=== PATIENT | male | born 1930 | race Caucasian/White ===

== ENCOUNTER 2017-05-01 15:53 | Emergency (ER) | payer MEDICARE ==
[2015-10-27 13:24] VITALS: BMI 21.5
[~2017-05-01 15:53] MED LIST: ANDROGEL5 GM; CARAFATE1 G/10 ML PO; COZAAR25 MG; COZAAR25 MG PO; GLUCOTROL 5 MG T5 MG PO; GLUCOTROL ER2.5 MG; HYDROCODONE-APA1 TAB PO; LEVAQUIN500 MG PO; LEVAQUIN750 MG PO; MUCINEX600 MG PO; OMEPRAZOLE40 MG PO; PLAVIX75 MG PO; PRILOSEC10 MG; PROTONIX40 MG PO; TESTOSTERON200 MG/ML IM; TOPROL XL25 MG; TOPROL XL50 MG PO; ZOFRAN ODT4 MG/UDTAB PO; ZOFRAN4 MG PO
[2017-05-01 16:21] LABS: BASOPHILS 0.2 % (0-2); EOSINOPHILS 3.6 % (0-7); HEMOGLOBIN 13.3 g/dL (13.5-17.5); LYMPHOCYTES 23.2 % (15-50); MCH 30.1 pg (26.0-34.0); MCHC 35.9 g/dL (31.0-37.0); MCV 83.7 fL (80.0-100.0); MEAN PLATELET VOLUME 9.5 fL (7.4-10.4); MONOCYTES 7.1 % (2-11); NEUTROPHILS 63.9 % (40-80); RBC 4.42 10x6/uL (4.20-6.10); RDW 13.2 % (11.5-14.5); WBC 9.1 10x3/uL (4.8-10.8)
[2017-05-01 16:35] LABS: PLATELET COUNT 108 10x3/uL (130-400)
[2017-05-01 16:38] LABS: ALBUMIN 3.4 g/dL (3.4-5.0); BILIRUBIN - TOTAL 0.78 mg/dL (0.2-1.3); CALCIUM 8.7 mg/dL (8.5-10.1); CARBON DIOXIDE 25.1 mmol/L (21.0-32.0); CREATININE - SERUM 1.5 mg/dL (0.6-1.3); POTASSIUM - SERUM 4.1 mmol/L (3.5-5.1); PROTEIN - SERUM 6.8 g/dL (6.4-8.2); TROPONIN-I 0.046 ng/mL (0.000-0.060)
[2017-05-01 19:02] LABS: APPEARANCE CLEAR (CLEAR); BILIRUBIN NEGATIVE (NEGATIVE); COLOR YELLOW (YELLOW); GLUCOSE 50 mg/dL (NEGATIVE); KETONE NEGATIVE (NEGATIVE); LEUKOCYTE ESTERASE NEGATIVE (NEGATIVE); NITRITE NEGATIVE (NEGATIVE); PROTEIN NEGATIVE (NEGATIVE); SPECIFIC GRAVITY 1.015 (1.005-1.020); UROBILINOGEN NORMAL (NORMAL)
== END 2017-05-01 19:10 | disposition home or self-care (01) ==
LOC: D.ER 15:53
PROVIDERS: Emergency Medicine
DX: R53.1 Weakness (principal); E11.9 Type 2 diabetes mellitus without complications; Z79.4 Long term (current) use of insulin; I44.0 Atrioventricular block, first degree

== ENCOUNTER 2017-05-03 08:31 | Outpatient (CLI) | payer MEDICARE ==
[~2017-05-03] VITALS: Ht 177.8 cm; Wt 81.8 kg
--- NOTE | ~2017-05-03 | HEMODYNAMI ---
PATIENT:FAITH MONTANO JIMBO MEDICAL RECORD: [id number] : 34 LOCATION:D.CAT ADMISSION DATE: 05/03/17 Generatedon:05/03/201713:54 Patient name: FAITH MONTANO Patient #: [id number] SSN: D OB: 1930 Date of study: 05/03/2017 Page: Of Hemodynamic Procedure Report Patient Data Patient Demographics Procedure consent was obtained First Name: FAITH Gender: Male Last Name: DUSTY : 1930 Middle Initial: JIMBO Age: 86 year(s) Patient #: [id number] Race: Additional ID: [id number] Contact details [address]: [address] [place] [address] State: [place] City: [place] Zip code: [address] Past Medical History Allergies Allergen Reaction Date Comments Reported Other allergy 08/30/2015 Lisinopril Codeine 08/30/2015 Admission Admission Data Admission Date: 05/03/2017 Admission Time: 8:31 Procedure Procedure Types Cath Procedure Diagnostic Procedure [facility] w/Coronaries PCI Procedure Coronary Stent Initial Miscellaneous Procedures Moderate Sedation up to 45 minutes Procedure Description Procedure Date Procedure Date: 05/03/2017 Procedure Start Time: 13:10 Procedure End Time: 13:47 Procedure Staff Name Function Jarod Henry MD Performing Physician Fatmata Jewell RN Nurse Dashawn Dong RT Monitor Herman Thibodeaux RT Scrub Yovani Paul RN Slate Mixer Procedure Data Cath Procedure Fluoroscopy Diagnostic fluoroscopy Total fluoroscopy Time: time: 15.6 min 15.6 min Diagnostic fluoroscopy Total fluoroscopy dose: dose: 1736 mGy 1736 mGy Contrast Material Contrast Material Type Amount (ml) Isovue 300 152 Entry Location Entry Primary Successful Side Size Upsize Upsize Entry Closure Siegel ccessful Closure Location (Fr) 1 (Fr) 2 (Fr) Remarks Device Remarks Radial Right 6 Fr Mechanical artery Short Compression Estimated blood loss: 10 ml Diagnostic catheters Device Type Used For End Catheter Placement Diagnostic Terumo 5Fr Procedure Lester 110cm catheter Procedure Complications No complications Procedure Medications Medication Administration Route Dosage Oxygen NC 2 l/min Heparin Flush Bag added to field 2 bags (1000units/500ml NS) Lidocaine 2% added to field 20 Radial Cocktail added to field 1 syringe (Verapomil 2mg/Nitro 400mcg/Heparin 1500units) Versed I.V. 1 mg Fentanyl I.V. 50 mcg Radial Cocktail I.A. 1 syringe (Verapomil 2mg/Nitro 400mcg/Heparin 1500units) Versed I.V. 0.5 mg Fentanyl I.V. 25 mcg Fentanyl I.V. 25 mcg Heparin Bolus I.V. 5000 units Versed I.V. 0.5 mg Heparin Bolus I.V. 3000 units Hemodynamics Rest Pre Cath Intra NCS Post Cath Vital Signs Time Heart Resp SPO2 etCO2 MS1yyra NIBP (mmHg) Rhythm Pain Sedation Rate (ipm) (%) (mmHg) (mmHg) Status Level (bpm) 12:53:05 73 18 96 0 0 187/85(140) NSR 0 (11) 10(A) , No pain 12:57:30 77 19 99 0 0 180/97(141) NSR 0 (11) 10(A) , No pain 13:01:54 79 15 96 0 0 165/82(131) NSR 0 (11) 10(A) , No pain 13:06:18 83 15 96 0 0 158/79(122) NSR 0 (11) 10(A) , No pain 13:10:38 70 16 98 0 0 145/80(123) NSR 0 (11) 9(A) , No pain 13:14:52 83 16 98 0 0 126/66(100) NSR 0 (11) 9(A) , No pain 13:19:06 82 16 96 0 0 121/64(95) NSR 0 (11) 9(A) , No pain 13:23:14 71 16 94 0 0 136/74(106) NSR 0 (11) 9(A) , No pain 13:27:28 69 16 96 0 0 139/74(113) NSR 0 (11) 9(A) , No pain 13:31:42 70 14 95 0 0 152/76(121) NSR 0 (11) 9(A) , No pain 13:36:04 70 16 96 0 0 143/72(120) NSR 0 (11) 9(A) , No pain 13:40:24 71 15 96 0 0 139/68(107) NSR 0 (11) 9(A) , No pain 13:44:40 70 19 96 0 0 149/79(125) NSR 0 (11) 9(A) , No pain 13:46:53 69 15 94 0 0 148/77(112) NSR 0 (11) 9(A) , No pain Medications Time Medication Route Dose Verified Delivered Reason Note s Effectiveness by by 12:54:17 Oxygen NC 2 l/min Jarod Fatmata Per physician Carl Jewell RN 12:54:29 Heparin Flush added 2 bags Jarod Nessrey used for Bag to Carl Henry MD procedure (1000units/500ml field NS) 12:54:39 Lidocaine 2% added 20ml Jarod Jarod used for to vial Carl Henry MD procedure field 12:54:47 Radial Cocktail added 1 Jarod Jarod used for (Verapomil to syringe Carl Henry MD procedure 2mg/Nitro field 400mcg/Heparin 1500units) 13:07:15 Versed I.V. 1 mg Jarod Fatmata for sedation Carl Jewell RN 13:07:23 Fentanyl I.V. 50 mcg Jarod Fatmata for sedation Carl Jewell RN 13:09:27 Versed I.V. 0.5 mg Jarod Fatmata for sedation Carl Jewell RN 13:09:45 Fentanyl I.V. 25 mcg Jarod Fatmata for sedation Carl Jewell RN 13:11:01 Radial Cocktail I.A. 1 Jarod Jarod for (Verapomil syringe Carl Henry MD vasodilation 2mg/Nitro 400mcg/Heparin 1500units) 13:11:53 Fentanyl I.V. 25 mcg Jarod Fatmata for sedation Carl Jewell RN 13:12:16 Versed I.V. 0.5 mg Jarod Fatmata for sedation Carl Jewell RN 13:14:27 Heparin Bolus I.V. 5000 Jarod Fatmata for dose units Carl Jewell RN anticoagulation verified wt dr henry 13:35:54 Heparin Bolus I.V. 3000 Jarod Fatmata for dose units Carl Jewell RN anticoagulation verified [facility] dr henry Procedure Log Time Note 12:35:50 Yovani Paul RN sent for patient. Start room use. 12:46:59 Time tracking: Regular hours 12:47:03 Plan of Care:Hemodynamics will remain stable., Cardiac rhythm will remain stable., Comfort level will be maintained., Respiratory function will remain adequate., Patient/ family verbilizes understanding of procedure., Procedure tolerated without complication., Recovers from procedure without complications.. 12:47:29 Patient received from Pre/Post Procedure Room to CCL 1 Alert and oriented. Tansferred to table in Supine position. 12:47:36 Warm blankets applied, and deidra hugger turned on for patient comfort. 12:47:37 Correct patient and procedure confirmed by team. 12:47:39 Signed procedure consent form obtained from patient. 12:47:39 ECG and BP/O2 sat monitors applied to patient. 12:51:51 Vital chart was started 12:54:17 Oxygen 2 l/min NC was administered by Fatmata Jewell RN; Per physician; 12:54:29 Heparin Flush Bag (1000units/500ml NS) 2 bags added to field was administered by Jarod Henry MD; used for procedure; 12:54:39 Lidocaine 2% 20ml vial added to field was administered by Jarod Henry MD; used for procedure; 12:54:47 Radial Cocktail (Verapomil 2mg/Nitro 400mcg/Heparin 1500units) 1 syringe added to field was administered by Jarod Henry MD; used for procedure; 13:02:18 Rhythm: sinus rhythm 13:02:23 Full Disclosure recording started 13:04:55 H&P Date Dictated: 04/18/2017 Within 30 days and on chart., H&P Addendum completed by physician on day of procedure. (MUST COMPLETE FOR ALL OUTPATIENTS). 13:04:57 Pre-procedure instructions explained to patient. 13:04:57 Pre-op teaching completed and patient verbalized understanding. 13:04:59 Family in waiting room. 13:05:04 Patient NPO since Midnight. 13:05:05 Is the patient allergic to Iodine/contrast media? No. 13:05:10 Is patient on blood thinner?Yes 13:05:13 ACC The patient was administered the following blood thiners within the last 24 hours: ACCPlavix 13:05:17 Patient diabetic? Yes. 13:05:18 If diabetic: On Metformin? No 13:05:20 Previous problem with sedation/anesthesia? No ? 13:05:24 Snore? Yes 13:05:27 Sleep apnea? No 13:05:33 Deviated septum? No 13:05:33 Opens mouth fully? Yes 13:05:34 Sticks out tongue? Yes 13:05:37 Airway obstruction? No ? 13:05:56 Dentures? Yes IN 13:06:04 Pre procedure: right dorsailis pedis pulse 1+ Palpable, but thready & weak; easily obliterated 13:06:07 Modified Willie's test Ulnar < 7 seconds 13:06:09 Patient pain scale 0/10 ?. 13:06:14 IV patent on arrival in left forearm with 0.9% NaCl at [facility]. 13:06:24 Lab results completed and on chart. 13:06:59 Right Radial & Right Groin area was prepped with chlora-prep and draped in sterile fashion 13:07:00 Alarms reviewed by R. N. 13:07:00 Sharps counted by scrub and verified by R.N. 13:07:04 --------ALL STOP TIME OUT------ 13:07:04 Final Timeout: patient, procedure, and site verified with staff and physician. All members of the team are in agreement. 13:07:07 Right Radial & Right Groin site verified by team. 13:07:10 Physical assessment completed. ASA score P 2 - A patient with mild systemic disease as per Jarod Henry MD. 13:07:14 Sedation plan: IV Moderate Sedation Versed, Fentanyl 13:07:15 Versed 1 mg I.V. was administered by Fatmata Jewell RN; for sedation; 13:07:23 Fentanyl 50 mcg I.V. was administered by Fatmata Jewell RN; for sedation; 13::27 Versed 0.5 mg I.V. was administered by Fatmata Jewell RN; for sedation; 13:09:45 Fentanyl 25 mcg I.V. was administered by Fatmata Jewell RN; for sedation; 13:10:06 Use device set Radial Dx 13:10:08 Tegaderm 4 x 4 opened to sterile field. 13:10:09 Acist Manifold opened to sterile field. 13:10:09 Acist Hand Control opened to sterile field. 13:10:10 Acist Syringe opened to sterile field. 13:10:11 Medline Cath Pack opened to sterile field. 13:10:11 Bag Decanter opened to sterile field. 13:10:12 Terumo 6Fr Slender Glidesheath opened to sterile field. 13:10:12 St Mason 260cm J .035 wire opened to sterile field. 13:10:12 MBrace Wrist Support opened to sterile field. 13:10:16 Procedure started. 13:10:22 Local anesthetic to right radial artery with Lidocaine 2% by Jarod Henry MD.INITIAL ACCESS ONLY 13:10:49 A 6 Fr Short sheath was inserted into the Right Radial artery 13:11:01 Radial Cocktail (Verapomil 2mg/Nitro 400mcg/Heparin 1500units) 1 syringe I.A. was administered by Jarod Henry MD; for vasodilation; 13:11:26 A Diagnostic Terumo 5Fr Lester 110cm catheter was advanced over the wire and used for Procedure. 13:11:41 LV angiography performed. 13:11:42 LV gram done using SANCHEZ 13:11:47 EF : 55 % 13:11:51 Injector settings: Ml/sec: 7, Volume: 15, 13:11:53 Fentanyl 25 mcg I.V. was administered by Fatmata Jewell RN; for sedation; 13:12:16 Versed 0.5 mg I.V. was administered by Fatmata Jewell RN; for sedation; 13:12:20 LCA angiography performed. 13:12:33 Merit BasixCompak Inflation Kit opened to sterile field. 13:13:08 RCA angiography performed. 13:13:09 Butt Whisper J 300cm 0.014 guide wire opened to sterile field. 13:13:11 Catheter exchanged over wire. 13:13:39 Gliphotronic Launcher 6Fr EBU 3.5 guide catheter opened to sterile field. 13:14:08 ACC PCI Site: pLAD has 100% stenosis. 13:14:25 ACC Pre-intervention CHELSY Flow is 0. 13:14:27 Heparin Bolus 5000 units I.V. was administered by Fatmata Jewell RN; for anticoagulation; dose verified wt dr henry 13:14:50 6 Fr EBU 3.5 guide catheter was inserted over the wire 13:16:01 Whisper wire advanced. 13:18:14 Butt Fielder XT J 300cm 0.014 guide wire opened to sterile field. 13:19:21 Whisper unable to cross, exchange for Choice PT XS wire. 13:20:13 [place] Sci Choice PT Extra Support J 300cm .014 gu opened to sterile field. 13:20:55 Choice PT XS unable to cross, exchange for Fielder wire. 13:25:53 Venture 6F catheter opened to sterile field. 13:25:54 Supercross Microcatheter advanced over the wire. 13:26:20 Fielder wire advanced across lesion and down the LAD. 13:26:25 Supercross catheter removed over the wire. 13:30:03 Inflation number: 1 A Euphora 1.5 x 20 Balloon was prepped and advanced across the Mid LAD, then inflated to 21 RAUL for 0:10 (min:sec). 13:30:21 Multiple inflations made at 21 Atms. 13:31:24 Balloon removed over the wire. 13:33:14 [place] 2.5x30 balloon advanced across lesion to exchange Fielder for Choice PT XS. 13:33:34 Inflation number: 2 A [place] Sci [place] 2.5 X 30 balloon was prepped and advanced across the Mid LAD, then inflated to 17 RAUL for 0:10 (min:sec). 13:35:00 Multiple inflations made at 17 Atms. 13:35:54 Heparin Bolus 3000 units I.V. was administered by Fatmata Jewell RN; for anticoagulation; dose verified wtih dr henry 13:36:29 Balloon removed over the wire. 13:36:48 Inflation Number: 3 A Biofreedom 2.25 x 28 stent (No Cost Implant) was prepped and advanced across the Mid LAD. The stent was deployed at 13 RAUL for 0:10 (min:sec). 13:37:46 Stent catheter was removed intact over wire. 13:38:57 Inflation Number: 4 A Biofreedom 2.75 x 28 stent (No Cost Implant) was prepped and advanced across the Mid LAD. The stent was deployed at 13 RAUL for 0:10 (min:sec). 13:39:36 Stent catheter was removed intact over wire. 13:40:47 Inflation Number: 1 A Biofreedom 3.0 x 24 stent (No Cost Implant) was prepped and advanced across the Prox LAD. The stent was deployed at 15 RALU for 0:10 (min:sec). 13:41:36 Stent catheter was removed intact over wire. 13:41:39 Wire removed. 13:41:39 Guide catheter removed. 13:44:26 Procedure ended.(Physican Out) 13:44:42 Terumo TR Band Standard opened to sterile field. 13:44:51 Sheath removed intact; hemostasis achieved with Mechanical Compression to the Right Radial artery. 13:44:59 Fluoroscopy time 15.60 minutes. 13:45:04 Fluoroscopy dose: 1736 mGy 13:45:04 Flurop Dose total: 1736 13:45:11 Contrast amount:Isovue 300 152ml. 13:45:13 Sharps counted by scrub and verified by R.N. 13:45:16 TR band inflated with 12cc of air. 13:45:22 Insertion/operative site no bleeding no hematoma. 13:45:25 Post Procedure Pulses reassessed and unchanged 13:45:27 Post-procedure physical assessment completed. ASA score P 2 - A patient with mild systemic disease as per Jarod Henry MD. 13:45:29 Post procedure rhythm: unchanged. 13:45:32 Estimated blood loss: 10 ml 13:45:36 Post procedure instruction explained to patient.Patient verbalizes understanding. 13:45:37 Patient needs reinforcement of post procedure teaching. 13:45:47 Procedure type changed to Cath procedure, Diagnostic procedure, LHC, LHC w/Coronaries, PCI procedure, Coronary Stent Initial, Miscellaneous Procedures, Moderate Sedation up to 45 minutes 13:46:57 Procedure and supply charges have been captured, reviewed, submitted and are correct. 13:47:01 Procedure Complication : No complications 13:47:09 Vital chart was stopped 13:47:10 See physician's report for complete and final results. 13:47:22 Report given to Pre/Post Procedure Room. 13:47:25 Patient transfered to Pre/Post Procedure Room with Stretcher. 13:47:27 Procedure ended. 13:47:27 Full Disclosure recording stopped 13:54:04 End room use (Document Last) Intervention Summary Intervention Notes Time ActionType Lesion and Equipment Action# Pressure Duration Attributes Used 13:30:03 Inflate Mid LAD Euphora 1 21 00:10 balloon 1.5 x 20 Balloon 13:33:34 Inflate Mid LAD [place] Sci 2 17 00:10 balloon [place] 2.5 X 30 balloon 13:36:48 Place stent Mid LAD Biofreedom 3 13 00:10 2.25 x 28 stent (No Cost Implant) 13:38:57 Place stent Mid LAD Biofreedom 4 13 00:10 2.75 x 28 stent (No Cost Implant) 13:40:47 Place stent Prox LAD Biofreedom 1 15 00:10 3.0 x 24 stent (No Cost Implant) Device Usage Item Name Manufacture Quantity Catalog Number Hospital Part Current Mini mal Lot# / Charge Number Stock Stock Serial# Code Tegaderm 4 3M 1 [id number] 498403 753966 110160 5 x 4 Acist Acist 1 79243 326424 123577 858014 5 Manifold Medical Systems Trellis Earth Products Acist Hand Acist 1 97500 436343 072910 485620 5 Control Medical Systems Trellis Earth Products Acist Acist 1 78856 668915 207575 605288 20 Syringe Medical Systems Inc Medline Cardinal 1 [id number] 367045 56366 592036 5 Cath Pack Health Bag Microtek 1 2002S 225208 44852 523729 5 Overinteractive Media Inc. Terumo 6Fr Terumo 1 [id number] 222096 524343 083712 [address] St Mason 1 768512 847262 629944 775785 30 260cm J .035 wire MBrace Advanced 1 140-0250-00 912842 06250 379459 5 Wrist Vascular Support Dynamics Diagnostic Terumo 1 06-2325 665036 382736 577533 5 Terumo 5Fr Lester 110cm catheter Merit Merit 1 AS7034 090553 922621 047152 15 YR Free Medical Inflation Kit Medtronic Medtronic 1 [id number] 894624 98902 026713 3 Launcher 6Fr EBU 3.5 guide catheter [place] Sci [place] 1 [id number] 093811 043585 587375 5 Choice PT Scientific Extra Support J 300cm .014 gu Butt Butt 1 [id number] 001986 178290 935757 5 Whisper J Vascular 300cm 0.014 guide wire Butt Butt 1 [id number] 864122 446096 262815 5 Fielder XT Vascular J 300cm 0.014 guide wire Euphora 1.5 Medtronic 1 [id number] 823317 463347 720696 5 [id number] x 20 Balloon [place] Sci [place] 1 [id number] 874902 933151 387406 1 [id number] Bevo Media 2.5 X 30 balloon Venture 6F Vascular 1 5821 223626 519479 427839 1 catheter Solutions Biofreedom Biosensors 1 [facility]2-2228 116708 851497 5 [id number] 2.25 x 28 [place] SA stent (No Cost Implant) Biofreedom Biosensors 1 [facility]2-0202 336954 528785 5 [id number] 2.75 x 28 [place] SA stent (No Cost Implant) Biofreedom Biosensors 1 [facility]2-9394 520356 823521 5 [id number] 3.0 x 24 [place] SA stent (No Cost Implant) Terumo TR Terumo 1 [id number] 444803 842648 196495 40 Band Standard Signature Audit [place] Stage Time Signature Unsigned Intra-Procedure 05/03/2017 Herman Thibodeaux 1:54:16 PM RT(R) Signatures Monitor : Dashawn Dong RT Signature : Date : Time : [id number] [place] [address]
[2017-05-03] MEDS ORDERED: TIROSINT50 MCG PO (09:14)
[2017-05-03] MEDS ORDERED: METOPROLOL TART50 MG PO (09:14)
[2017-05-03] MEDS ORDERED: NEURONTIN 300300 MG PO (09:15)
[2017-05-03] MEDS ORDERED: COZAAR25 MG PO (09:15)
[2017-05-03] MEDS ORDERED: NORVASC5 MG PO (09:15)
[2017-05-03] MEDS ORDERED: GLUCOTROL 5 MG T5 MG PO (09:15)
[2017-05-03] MEDS ORDERED: PLAVIX75 MG PO (09:16)
[2017-05-03 09:22] VITALS: BP 158/69; Ht 177.8 cm; Wt 81.8 kg
[2017-05-03 09:30] LABS: BASOPHILS 0.1 % (0-2); EOSINOPHILS 3.8 % (0-7); HEMATOCRIT 39.4 % (42.0-54.0); HEMOGLOBIN 13.6 g/dL (13.5-17.5); IMMATURE GRANULOCYTES 1.6 % (0-5); LYMPHOCYTES 22.4 % (15-50); MCH 29.4 pg (26.0-34.0); MCHC 34.5 g/dL (31.0-37.0); MCV 85.1 fL (80.0-100.0); MEAN PLATELET VOLUME 10.5 fL (7.4-10.4); MONOCYTES 9.6 % (2-11); NEUTROPHILS 62.5 % (40-80); PLATELET COUNT 107 10x3/uL (130-400); RBC 4.63 10x6/uL (4.20-6.10); RDW 13.7 % (11.5-14.5); WBC 7.1 10x3/uL (4.8-10.8)
[2017-05-03 09:42] LABS: CALCIUM 9.1 mg/dL (8.5-10.1); CARBON DIOXIDE 27.1 mmol/L (21.0-32.0); CREATININE - SERUM 1.3 mg/dL (0.6-1.3)
[2017-05-03 09:49] LABS: ANION GAP 8.5 mmol/L (8-16); POTASSIUM - SERUM 4.6 mmol/L (3.5-5.1)
[2017-05-03 10:31] LABS: CKMB 1.5 U/L (0.0-3.6)
[2017-05-03 10:35] LABS: CREATINE KINASE 203 UL (21-232)
--- NOTE | 2017-05-03 14:15 | NUR ---
TR BAND TO RIGHT WRIST INTACT, NO BLEEDING NOTED
--- NOTE | 2017-05-03 14:45 | NUR ---
TR BAND TO RIGHT WRIST CDI, AT SIDE, DENIES CHEST PAIN
--- NOTE | 2017-05-03 15:25 | NUR ---
LAB RESULTS CALLED TO PABLO- NO NEW ORDERS
--- NOTE | 2017-05-03 17:45 | NUR ---
IV D'C WITH CATH TIP INTACT, TR BAND OFF WITH BANDAID APPLIED, BRACE APPLIED. WRITTEN AND VERBAL D'C INSTRUCTIONS GIVEN AND UNDERSTOOD. D'C HOME WITH
--- NOTE | 2017-05-04 08:33 | PRO ---
PATIENT:FAITH MONTANO MEDICAL RECORD: [id number] : 34 LOCATION:DErikaCAT ADMISSION DATE: 05/03/17 PROCEDURE PERFORMED BY: BEN SHAH MD PROCEDURE DATE: 05/03/17 PROCEDURES: 1. PTCA stent LAD. 2. Left heart catheterization. 3. Selective coronary angiography. 4. Left ventriculogram. INDICATION: 1. Angina. 2. Coronary artery disease. PROCEDURE IN DETAIL: After informed consent was obtained and after detailed explanation of risks, benefits, as well as alternative therapies, the patient elected to proceed with angiogram and angioplasty. The right radial area was prepped and draped in a normal sterile fashion. The right radial artery was cannulated via modified Seldinger technique with placement of 6-Nepali sheath. All catheters exchanged through this sheath. FINDINGS: Left ventriculogram was performed in standard 30 degree SANCHEZ view, reveals preserved cardiac ejection fraction at 50%. SELECTIVE CORONARY ANGIOGRAPHY: 1. Left main was with no significant angiographic disease. 2. Left anterior descending has previously placed stents. These were totally occluded with CHELSY 0 flow, the entire area through the proximal and mid left anterior descending. The proximal vessel was approximately a 20 millimeter stenosis, the mid vessel with a 55 millimeter stenosis. The mid vessel is a 2.5 millimeter vessel. The proximal vessel is a 2.75 millimeter vessel. 3. The left circumflex has mild irregularities but no flow-limiting stenosis. 4. The right coronary artery has mild irregularities but no flow-limiting stenosis. PTCA STENT OF THE LAD: The stent used proximally was a 3.0 X 24 millimeter BioFreedom. In the mid vessel a 2.75 X 28 and 2.25 X 28 both BioFreedom stents. The result was 0% residual throughout. No angiographic evidence of dissection or thrombus. Amish of CHELSY 3 flow throughout. OVERALL IMPRESSION: Successful percutaneous transluminal coronary angioplasty stent of the left anterior descending going from 100% initial stenosis to 0% residual stenosis. BEN SHAH MD at 0833 CC: [id number] DICTATION DATE: 05/03/172138 SENIOR STAFF CONSULTANT: JCLARY 05/03/172138 DEP CLI 05/03/17 [place] [address]
== END 2017-05-03 18:00 | disposition home or self-care (01) ==
LOC: D.CATH 08:31
PROVIDERS: Internal Medicine Interventional Cardiology
DX: I25.119 Atherosclerotic heart disease of native coronary artery with unspecified angina pectoris (principal); Z00.6 Encounter for examination for normal comparison and control in clinical research program; Z01.812 Encounter for preprocedural laboratory examination
CPT/HCPCS: 93458; C9600

== ENCOUNTER 2017-06-23 23:23 | Emergency (ER) | payer MEDICARE ==
[2017-05-03 09:22] VITALS: BMI 25.8
[~2017-06-23 23:23] MED LIST changes: +METOPROLOL TART50 MG PO; +NEURONTIN 300300 MG PO; +NORVASC5 MG PO; +TIROSINT50 MCG PO
[2017-06-24 00:33] LABS: BASOPHILS 0.1 % (0-2); EOSINOPHILS 4.4 % (0-7); HEMATOCRIT 37.5 % (42.0-54.0); IMMATURE GRANULOCYTES 1.3 % (0-5); LYMPHOCYTES 23.2 % (15-50); MCH 29.5 pg (26.0-34.0); MCHC 34.7 g/dL (31.0-37.0); MCV 85.2 fL (80.0-100.0); MEAN PLATELET VOLUME 9.8 fL (7.4-10.4); MONOCYTES 7.9 % (2-11); NEUTROPHILS 63.1 % (40-80); PLATELET COUNT 102 10x3/uL (130-400); RDW 13.3 % (11.5-14.5); WBC 6.9 10x3/uL (4.8-10.8)
[2017-06-24 00:55] LABS: APPEARANCE CLEAR (CLEAR); BILIRUBIN NEGATIVE (NEGATIVE); COLOR YELLOW (YELLOW); GLUCOSE NEGATIVE (NEGATIVE); KETONE NEGATIVE (NEGATIVE); LEUKOCYTE ESTERASE NEGATIVE (NEGATIVE); NITRITE NEGATIVE (NEGATIVE); PROTEIN NEGATIVE (NEGATIVE); UROBILINOGEN NORMAL (NORMAL)
[2017-06-24 00:57] LABS: ALBUMIN 3.5 g/dL (3.4-5.0); ANION GAP 11.8 mmol/L (8-16); BILIRUBIN - TOTAL 0.6 mg/dL (0.2-1.3); CALCIUM 9.1 mg/dL (8.5-10.1); CARBON DIOXIDE 25.3 mmol/L (21.0-32.0); CREATININE - SERUM 1.7 mg/dL (0.6-1.3); POTASSIUM - SERUM 4.1 mmol/L (3.5-5.1); PROTEIN - SERUM 6.9 g/dL (6.4-8.2); TROPONIN-I 0.035 ng/mL (0.000-0.060)
== END 2017-06-24 01:20 | disposition home or self-care (01) ==
LOC: D.ER 23:23
PROVIDERS: Nurse Practitioner Family
DX: R51 Headache (principal); R53.1 Weakness; E11.9 Type 2 diabetes mellitus without complications; Z79.4 Long term (current) use of insulin; F17.200 Nicotine dependence, unspecified, uncomplicated; I44.0 Atrioventricular block, first degree

== ENCOUNTER 2017-06-25 10:37 | Inpatient (IN) | payer MEDICARE ==
[~2017-06-25] VITALS: Ht 177.8 cm
[2017-06-25 12:05] LABS: BASOPHILS 0 % (0-2); EOSINOPHILS 0.1 % (0-7); HEMOGLOBIN 13.8 g/dL (13.5-17.5); IMMATURE GRANULOCYTES 0.9 % (0-5); LYMPHOCYTES 15.1 % (15-50); MCH 29.4 pg (26.0-34.0); MCHC 35.4 g/dL (31.0-37.0); MEAN PLATELET VOLUME 9.6 fL (7.4-10.4); MONOCYTES 5.5 % (2-11); NEUTROPHILS 78.4 % (40-80); PLATELET COUNT 104 10x3/uL (130-400); RDW 13.1 % (11.5-14.5); WBC 8.2 10x3/uL (4.8-10.8)
[2017-06-25 12:07] LABS: ALBUMIN 3.9 g/dL (3.4-5.0); ANION GAP 13.9 mmol/L (8-16); BILIRUBIN - TOTAL 1.1 mg/dL (0.2-1.3); CALCIUM 9.4 mg/dL (8.5-10.1); CARBON DIOXIDE 25.7 mmol/L (21.0-32.0); CREATININE - SERUM 1.5 mg/dL (0.6-1.3); POTASSIUM - SERUM 4.6 mmol/L (3.5-5.1); PROTEIN - SERUM 7.3 g/dL (6.4-8.2)
[2017-06-25 13:50] LABS: ERYTHROCYTE SEDIMENTATION RATE 24 mm/hr (0-30)
[2017-06-26 04:00] VITALS: BP 165/80
[2017-06-26 06:49] VITALS: BP 167/81; BMI 24.4
--- NOTE | 2017-06-26 07:35 | NUR ---
PT AOX4 RESP EVEN AND NONLABORED PT DENIES NEEDS AT THIS TIME IV TO RIGHT HAND PATENT AND INTACT AT THIS TIME SRX2 BED AT LOWEST SETTING CALL LIGHT WITHIN REACH WILL CONTINUE TO MONITOR
[2017-06-26 08:21] VITALS: BP 190/90
[2017-06-26 12:00] VITALS: BP 195/80
--- NOTE | 2017-06-26 14:50 | NUR ---
Patient Name: FAITH MONTANO Admission Status: ER Accout number: [id number] Admission Date: 06-25-2017 : 1930 Admission Diagnosis: Attending: URBAN PAL Current LOS: 1 Anticipated DC Date: 06-26-2017 Planned Disposition: Home with Home Health Primary Insurance: [employer] CHOICE PPO MCR ADVANT Discharge Planning Comments: CM MET WITH PATIENTS (DOROTEO) REGARDING D/C NEEDS AND PLANS. STATED SHE WILL DRIVE PATIENT HOME AT DISCHARGE. PATIENT HAS ONE STEP TO ENTER HOME AND NO STAIRS INSIDE. PATIENT WAS INDEPENDENT BEFORE ADMIT AND HAS A WALKER, AND GLUCOMETER AT HOME (CHECKS DAILY). PATIENTS PCP IS DR. HERRERA AND PHARMACY IS [facility]. STATED PATIENT WILL NEED HOME HEALTH OR REHAB AT DISCHARGE. CM WILL CONTINUE TO FOLLOW PATIENT WITH D/C NEEDS AND PLANS. PCP DR. [facility] [phone] DROOTEO () [phone] Interline Clerk: Niki Perez Is the patient Alert and Oriented? No 0 * How many steps to enter\exit or inside your home? 1 0 * PCP DR. HERRERA 0 * Pharmacy [facility] 0 * Preadmission Environment Home with Family 0 * ADLs Independent 0 * Equipment Glucometer Walker 0 * List name and contact numbers for known caregivers / representatives who currently or will assist patient after discharge: DOROTEO () H [phone] [facility] [phone] 0 * Community resources currently utilized None 0 * Additional services required to return to the preadmission environment? Yes 0 * Can the patient safely return to the preadmission environment? Yes 0 * Has this patient been hospitalized within the prior 30 days at any hospital? No 0 Grand Total: 0
[2017-06-26 15:39] VITALS: Ht 177.8 cm
--- NOTE | 2017-06-26 16:00 | NUR ---
OT NOTE: PT COMPLETED BED MOB USING GRAB BARS FOR SIDE ROLLING TO DECREASE RISK OF SKIN BREAKDOWN. PT COMPLETED BUE AROM EXS FOR INCREASE GROSS MOTOR COORDINATION WITH FX ACTIVITIES. PT COMPLETED SIMPLE GROOMING WITH SET UP. THANK YOU, LAZ LANGFORD/Gonzalez
[2017-06-26 16:31] VITALS: BP 178/87
--- NOTE | 2017-06-26 19:30 | NUR ---
RECIEVED SHIFT REPORT. PT IS LYING IN BED. ALERT AND ORIENTED AND ABLE TO VERBALIZE NEEDS. IV IS PATENT AND FLUIDS ARE RUNNING PER ORDER. PT IS AMBULATORY WITH ASSISTANCE BUT STATES HE IS WEAK RIGHT NOW. PT STATES PAIN IS 7/10. NO NEEDS ARE VERBALIZED AT THIS TIME. WILL CONTINUE TO MONITOR. VISITOR IS AT THE BEDSIDE. SIDE RAILS ARE UP X 2. BED IS IN LOWEST POSITION. BED ALARM IS ON FOR SAFETY. CALL LIGHT IS WITHIN REACH.
[2017-06-26 20:00] VITALS: BP 199/93
--- NOTE | 2017-06-26 20:48 | NUR ---
SHIFT ASSESSMENT COMPLETED. PT RECIEVED 4 UNITS INSULIN PER SLIDING SCALE FOR SXGE=479. NO NEEDS ARE VOICED. WILL MONITOR. VISITOR AT BEDSIDE. SIDE RAILS X 2. BED LOW. BED ALARM ON. CALL LIGHT IN REACH.
[2017-06-27] VITALS: BP 189/89
[2017-06-27 04:00] VITALS: BP 184/96
[2017-06-27 04:55] LABS: BASOPHILS 0.1 % (0-2); EOSINOPHILS 0.1 % (0-7); HEMATOCRIT 38.8 % (42.0-54.0); HEMOGLOBIN 14.4 g/dL (13.5-17.5); IMMATURE GRANULOCYTES 0.6 % (0-5); LYMPHOCYTES 9.9 % (15-50); MCH 30.3 pg (26.0-34.0); MCHC 37.1 g/dL (31.0-37.0); MCV 81.7 fL (80.0-100.0); MEAN PLATELET VOLUME 9.8 fL (7.4-10.4); MONOCYTES 7.8 % (2-11); NEUTROPHILS 81.5 % (40-80); PLATELET COUNT 126 10x3/uL (130-400); RBC 4.75 10x6/uL (4.20-6.10); WBC 13.9 10x3/uL (4.8-10.8)
[2017-06-27 05:25] LABS: ALBUMIN 3.4 g/dL (3.4-5.0); BILIRUBIN - TOTAL 1.25 mg/dL (0.2-1.3); CALCIUM 8.6 mg/dL (8.5-10.1); CARBON DIOXIDE 25.1 mmol/L (21.0-32.0); CHOL - HDL RATIO 5.2 ratio (2.3-4.9); CREATININE - SERUM 1.3 mg/dL (0.6-1.3); LDL-HDL RATIO 3.2 ratio (1.5-3.5); POTASSIUM - SERUM 4.1 mmol/L (3.5-5.1); PROTEIN - SERUM 6.5 g/dL (6.4-8.2)
--- NOTE | 2017-06-27 07:50 | NUR ---
PT AOX4 RESP EVEN AND NONLABORED PT C/O H/A AT THIS TIME PT GIVEN PO TYLENOL 650MG AT THIS TIME IV TO RIGHT HAND PATENT AND INTACT AT THIS TIME SRX2 BED AT LOWEST SETTING CALL LIGHT WITHIN REACH WILL CONTINUE TO MONITOR
[2017-06-27 08:06] VITALS: BP 170/86
[2017-06-27 11:58] VITALS: BP 187/87
--- NOTE | 2017-06-27 14:43 | NUR ---
OT NOTE: PT FEELING BETTER TODAY; LESS NAUSEATED. PERFORMED AROM EXS WHILE SUPINE; ATTEMPTED SITTING UP , HOWEVER, PT REMAINS VERY DIZZY AND WAS UNABLE TO TOLERATE TODAY. REPORTED THAT THEY WERE WORRIED ABOUT BP DROPPING WHILE SITTING UP. BED MOB WITH MIN ASSIST.
--- NOTE | 2017-06-27 15:01 | NUR ---
AND NOTIFIED OF B/P OF BOTH STATE WILL DO NOTHING FOR IT AT THIS TIME TO MONITOR PT.
[2017-06-27 15:03] VITALS: BP 162/80
--- NOTE | 2017-06-27 15:47 | NUR ---
OT NOTE: PT COMPLETED ORAL HYGIENE TASK WITH MOD A. PT COMPLETED BUE FM COORDINATION FOR INCREASED I WITH ADLS. MELVA FORD COTA/Gonzalez
[2017-06-27 20:00] VITALS: BP 160/79
[2017-06-28] VITALS: BP 155/80
[2017-06-28 04:00] VITALS: BP 179/82
[2017-06-28 05:42] LABS: BASOPHILS 0.1 % (0-2); EOSINOPHILS 0.6 % (0-7); HEMATOCRIT 38.9 % (42.0-54.0); HEMOGLOBIN 14.2 g/dL (13.5-17.5); IMMATURE GRANULOCYTES 0.7 % (0-5); MCH 29.8 pg (26.0-34.0); MCHC 36.5 g/dL (31.0-37.0); MCV 81.6 fL (80.0-100.0); MEAN PLATELET VOLUME 9.3 fL (7.4-10.4); MONOCYTES 7.7 % (2-11); NEUTROPHILS 75.9 % (40-80); PLATELET COUNT 114 10x3/uL (130-400); RBC 4.77 10x6/uL (4.20-6.10); WBC 10.9 10x3/uL (4.8-10.8)
[2017-06-28 05:57] LABS: ALBUMIN 3.4 g/dL (3.4-5.0); ANION GAP 13.4 mmol/L (8-16); BILIRUBIN - TOTAL 1.4 mg/dL (0.2-1.3); CALCIUM 8.7 mg/dL (8.5-10.1); CARBON DIOXIDE 23.6 mmol/L (21.0-32.0); CREATININE - SERUM 1.3 mg/dL (0.6-1.3); PROTEIN - SERUM 6.7 g/dL (6.4-8.2)
--- NOTE | 2017-06-28 08:00 | NUR ---
PT RESTING QUIETLY. AROUSES TO VOICE. COMPLAINS OF HEADACHE. NIGHT NURSE GAVE TYLENOL FOR HEADACHE. HAS ACTIVE BS X 4. HAND CONTINUITY WRITER STRONG EQUAL YOLY. LEG STRENGTH STRONG AND EQUAL YOLY. ON ROOM AIR. LUNG SOUNDS CLEAR THROUGH OUT. ON TELEMETRY WITH HR OF 88 SYNUS RHYTHM. R-FOREARM PERIPHERAL IV INFUSING 1/2 NS AT 100ML/HR. IS IN THE ROOM. DENIES OTHER NEEDS AT THIS TIME.
[2017-06-28 08:05] VITALS: BP 176/86
--- NOTE | 2017-06-28 11:09 | NUR ---
PT RESTING COMFORTABLY. NORCO HELPED WITH HEADACHE. DID NOT RATE PAIN AT THIS TIME. WILL CONTINUE TO MONITOR.
--- NOTE | 2017-06-28 11:25 | NUR ---
PT WANTED TO SIT ON SIDE OF BED. NOT STRONG ENOUGH TO SIT UP. EXPLAINED TO PT THAT HE NEEDED TO STAY IN BED TO PREVENT FALL. PT PULLED UP IN BED AND REPOSITIONED. BED IN LOW POSITON. PRAKASH BED ALARM ON. NO OTHER NEEDS AT THIS TIME.
--- NOTE | 2017-06-28 11:44 | NUR ---
BLOOD SUGAR 218. 4 UNITS OF HUMULIN R GIVEN PER SLIDING SCALE.
[2017-06-28 12:28] VITALS: BP 163/85
--- NOTE | 2017-06-28 13:52 | EC ---
PATIENT:FAITH MONTANON DATE OF SERVICE: 06/25/17 SEX: M MEDICAL RECORD: [id number] DATE OF : 34 LOCATION:[facility] AGE OF PATIENT: 87 ADMISSION DATE: 06/25/17 REFERRING PHYSICIAN: INTERPRETING PHYSICIAN: BEN HENRY MD ECHOCARDIOGRAM REPORT ECHO CHARGES 4 ECHO COMPLETE CLINICAL DIAGNOSIS: CVA ECHOCARDIOGRAPHIC MEASUREMENTS (adult normal given) AC root (d.<3.7cm) 3.5 cm LV Septum d (<1.2 cm> 1.5 cm Valve Excursion 1.4 cm LV Septum (systole) 1.9 cm Left Atria (s.<4.0cm> 2.7 cm LVPW d(<1.2cm) 1.5 cm RV (d.<2.3cm) 2.4 cm LVPW (sytole) 2.3 cm LV diastole(<5.6CM) 4.6 cm MV E-F(>70mm/sec) cm LV systole 2.5 cm LVOT Diameter 2.0 cm MV exc.(>10mm) cm Est.ejection fraction (50-75%) % Pericardial Effusion N DOPPLER: LVIT cm/sec A 106 cm/sec E 84.0 cm/sec LA cm/sec RVSP 27.0 mmHg LVOT 113 cm/sec AOP1/2T m/s Asc. Ao 131 cm/sec RVOT 95.0 cm/sec RA cm/sec PA 148 cm/sec AV Gradient Peak 6.9 mmHg AV Mean 3.2 mmHg AV Area 3.4 cm MV Gradient Peak 5.4 mmHg MV Mean 2.4 mmHg MV Area cm COMMENTS: Accounts Clerk: 1 ABDON LERMAOE Interior Design Principal: 1 Dr. Henry TAPE# PACS DATE OF SERVICE: 06/27/2017 Echocardiogram FINDINGS: 1. Left ventricular chamber size is within normal limits. Left ventricular systolic function is normal. Overall ejection fraction estimated at 55%. 2. Left atrium, right atrium, and right ventricle chamber sizes are within normal limits. 3. Valvular structures have normal structure and motion. ECHOCARDIOGRAM REPORT [id number] FAITH MONTANO JIMBO 4. Doppler interrogation reveals mild aortic insufficiency, mild tricuspid regurgitation, no other valvular insufficiency or stenosis and pulmonary systolic pressure is normal estimated at 27 mmHg. 5. No evidence of pericardial effusion or left ventricular thrombus. TRANSINT:[id number] Voice Confirmation ID: [id number] DOCUMENT ID: [id number] BEN HENRY MD at 1352 CC: [id number] DICTATION DATE: 06/27/17 1250 ALTERNATIVE FINANCING SPECIALIST: 06/27/17 1838 ADM IN [facility] [address] [place] [address]
--- NOTE | 2017-06-28 14:20 | NUR ---
PT RESTING COMFORTABLY. FAMILY REPORTS NO NEEDS AT THIS TIME.
--- NOTE | 2017-06-28 14:38 | NUR ---
NUTRITION F/U ADA DIET, PO INTAKE IMPROVING WITH FAMILY ASSIST. WILL CONTINUE TO PROVIDE DIET, MONITOR INTAKE. RD FOLLOWING
[2017-06-28 16:00] VITALS: BP 172/77
--- NOTE | 2017-06-28 16:23 | NUR ---
OT NOTE: PT COMPLETED ORAL HYGIENE WITH MIN A. PT COMPLETED BUE FM SKILLS FOR INCREASED I WITH ADLS. THANK YOU, LAZ LANGFORD/Gonzalez
--- NOTE | 2017-06-28 16:52 | NUR ---
CM REASSESSMENT NOTE: PATIENTS SIGNED THE [facility]M FOR [facility] 1ST CHOICE AND [facility] 2ND CHOICE FOR SKILLED REHAB AT DISCHARGE.
--- NOTE | 2017-06-28 19:33 | NUR ---
PATIENT RESTING IN BED WITH EYES CLOSED AND NO VISIBLE SIGNS OF DISTRESS. FAMILY AT BEDSIDE. BED IN LOWEST POSITION AND CALL LIGHT WITHIN REACH. ENCOURAGED THE FAMILY TO CALL IF THEY OR THE PATIENT HAVE NEEDS.
[2017-06-28 20:00] VITALS: BP 157/63
[2017-06-29] VITALS: BP 180/81
[2017-06-29 04:09] VITALS: BP 162/73
[2017-06-29 06:12] LABS: BASOPHILS 0.1 % (0-2); EOSINOPHILS 0.1 % (0-7); HEMATOCRIT 38.9 % (42.0-54.0); HEMOGLOBIN 14.2 g/dL (13.5-17.5); IMMATURE GRANULOCYTES 0.6 % (0-5); LYMPHOCYTES 10.2 % (15-50); MCH 29.5 pg (26.0-34.0); MCHC 36.5 g/dL (31.0-37.0); MCV 80.9 fL (80.0-100.0); MEAN PLATELET VOLUME 9.7 fL (7.4-10.4); MONOCYTES 6.1 % (2-11); NEUTROPHILS 82.9 % (40-80); PLATELET COUNT 126 10x3/uL (130-400); RBC 4.81 10x6/uL (4.20-6.10); RDW 13.1 % (11.5-14.5)
[2017-06-29 06:19] LABS: WBC 15.8 10x3/uL (4.8-10.8)
[2017-06-29 06:29] LABS: ALBUMIN 3.2 g/dL (3.4-5.0); ANION GAP 16.6 mmol/L (8-16); BILIRUBIN - TOTAL 1.4 mg/dL (0.2-1.3); CALCIUM 8.6 mg/dL (8.5-10.1); CARBON DIOXIDE 21.4 mmol/L (21.0-32.0); CREATININE - SERUM 1.2 mg/dL (0.6-1.3); PROTEIN - SERUM 6.7 g/dL (6.4-8.2)
--- NOTE | 2017-06-29 07:30 | NUR ---
REPORT RECEIVED FROM PHARMACOEPIDEMIOLOGIST NURSE. WALKING ROUNDS PREFORMED. ASSESSMENT AT PER FLOW SHEET. PT SITTING UP IN BED WITH EYES CLOSED, AUDIBLE SNORING. AT BEDSIDE. REPORTS NO NEEDS. BED ALARM PLACED AND ARMED. SCD'S ON. CALL LIGHT AT SIDE. IV INFUSING TO RIGHT AC.
[2017-06-29 08:10] VITALS: BP 185/76
--- NOTE | 2017-06-29 09:00 | NUR ---
PT NOTED TO HAVE REDENSS TO BUTTOCKS AND MANY INCT EPISODES OF URINE PT WITH FIRM BLADDER AFTER INCT EPISODE NOTED CESPEDES CATHETER ORDER OBTAINED AND CESPEDES INSERTED WITH STERILE TECHNIQUE ALL PARTS OF TRAY UTILIZED PER PROTOCOL. OBTAINED IMMEDIATE RETURN OF YELLOW URINE 500 ML. TOLERATED WELL FAMILY AT SIDE.
--- NOTE | 2017-06-29 10:10 | NUR ---
PT SITTING UP IN BED ASLEEP, NO VISABLE SIGNS OF PAIN OR DISCOMFORT AT THIS TIME. BED IN LOW POSITION AND CALL LIGHT WITHIN REACH. WILL CONTINUE TO MONITOR.
[2017-06-29 12:40] VITALS: BP 116/77
[2017-06-29 15:00] LABS: APPEARANCE SLT CLOUDY (CLEAR); COLOR YELLOW (YELLOW)
[2017-06-29 15:01] LABS: BILIRUBIN NEGATIVE (NEGATIVE); GLUCOSE 250 mg/dL (NEGATIVE); KETONE SMALL mg/dL (NEGATIVE); LEUKOCYTE ESTERASE NEGATIVE (NEGATIVE); NITRITE NEGATIVE (NEGATIVE); PROTEIN TRACE mg/dL (NEGATIVE); UROBILINOGEN NORMAL (NORMAL)
[2017-06-29 15:05] LABS: BACTERIA FEW /hpf (NONE SEEN)
[2017-06-29 15:57] VITALS: BP 166/76
--- NOTE | 2017-06-29 18:31 | NUR ---
PT HAS BEEN LETHARGIC TODAY UNABLE TO SWALLOW TODAY HAD VISIT FROM SPEECH TODAY AND PER RECCOMENDATIONS WAS MADE NPO PT UNABLE TO INITIATE SWALLOW. FAMILY WAS AT BEDSIDE WITH SPEECH VISIT AND AWARE OF NPO STATUS QUESTIONS ANSWERED PER THIS NURSE WITHIN SCOPE
--- NOTE | 2017-06-29 19:45 | NUR ---
PATIENT IS RESTING IN BED WITH NO VISIBLE SIGNS OF DISTRESS. PATIENT IS LETHARGIC AND WILL ONLY ANSWER YES OR NO QUESTIONS. PATIENT'S BED IN LOWEST POSITION, CALL LIGHT WITHIN REACH, AND BED ALARM IS ON. ENCOURAGED THE PATIENT TO CALL IF HE HAS NEEDS.
[2017-06-29 20:00] VITALS: BP 178/84
[2017-06-30] VITALS: BP 177/82
[2017-06-30 04:00] VITALS: BP 170/91
[2017-06-30 06:43] LABS: BASOPHILS 0.1 % (0-2); EOSINOPHILS 0.7 % (0-7); HEMATOCRIT 41.1 % (42.0-54.0); HEMOGLOBIN 14.8 g/dL (13.5-17.5); IMMATURE GRANULOCYTES 1.2 % (0-5); LYMPHOCYTES 13.4 % (15-50); MCH 29.5 pg (26.0-34.0); MEAN PLATELET VOLUME 9.8 fL (7.4-10.4); MONOCYTES 7.6 % (2-11); PLATELET COUNT 140 10x3/uL (130-400); RBC 5.01 10x6/uL (4.20-6.10); RDW 13.1 % (11.5-14.5); WBC 14.3 10x3/uL (4.8-10.8)
--- NOTE | 2017-06-30 07:00 | NUR ---
PT REC'D FROM TONI VERDE. RESTING IN BED ON L SIDE WITH EYES CLOSED. RESP EVEN AND UNLABORED. NO SIGNS OF DISTRESS. BED LOW, CALL LIGHT IN REACH, DENIES NEEDS. CPOC.
[2017-06-30 07:03] LABS: ALBUMIN 2.9 g/dL (3.4-5.0); ANION GAP 14.1 mmol/L (8-16); BILIRUBIN - TOTAL 1.19 mg/dL (0.2-1.3); CALCIUM 8.7 mg/dL (8.5-10.1); CARBON DIOXIDE 25.1 mmol/L (21.0-32.0); CREATININE - SERUM 1.3 mg/dL (0.6-1.3); POTASSIUM - SERUM 4.2 mmol/L (3.5-5.1); PROTEIN - SERUM 6.9 g/dL (6.4-8.2)
[2017-06-30 08:20] VITALS: BP 142/82
--- NOTE | 2017-06-30 09:05 | NUR ---
MORNING MEDS PASSED AT THIS TIME. PT WAS UNABLE TO SWALLOW PILLS SO I PROVIDED ORAL CARE AND DISPOSED OF THEM DUE TO THE FACT THAT I WAS WORRIED THE PT MIGHT ASPIRATE. FAMILY AT BEDSIDE. UNABLE TO FORM WORDS. HAND HR REPRESENTATIVE WEAK BILATERALLY. FOOT PUMPS WEAK BILATERALLY WELL. REGULAR HEART RATE AND RHYTHM. BILAT CRACKLES NOTED TO UPPER LOBES OF LUNGS, AND BILAT LOWER LOBES DIMINISHED. BOWEL SOUNDS HYPOACTIVE X4 QUADS. SCD'S ON. CESPEDES CATHETER DRAINING CLEAR YELLOW URINE TO GRAVITY. PT ATTEMPTING TO CLEAR SECRETIONS, BUT IS UNSUCCESSFUL. REPOSITIONED UP IN BED SITTING IN HIGH FOWLERS. PT NOW ABLE TO GET SECRETIONS TO THE BACK OF HIS THROAT AND SWALLOW WITH SOME DIFFICULTY. BED LOW, CALL LIGHT IN REACH, DENIES NEEDS. CPOC.
--- NOTE | 2017-06-30 09:15 | NUR ---
PATIENT ALERT IN HIGH HDZ POSITION WITH FAMILY AT BEDSIDE. SIDE RAILS UP X2. BED IN LOW POSITION. CALL LIGHT IN REACH.
--- NOTE | 2017-06-30 12:35 | NUR ---
PRN TYLENOL ADMINISTERED PER REPORTS FROM ANDRIY GAMING, OF AXILARY TEMP OF 101. TYLENOL CRUSHED AND DISSOLVED IN PRUNE JUICE AND ADMINISTERED 1ML AT A TIME. PT TOLERATED EXTREMELY WELL WITH NO EPISODE OF COUGHING OR CHOKING. FAMILY AT BEDSIDE. BED LOW, CALL LIGHT IN REACH, CPOC.
[2017-06-30 12:43] VITALS: BP 168/87
[2017-06-30 15:44] VITALS: BP 186/83
[2017-06-30 20:00] VITALS: BP 139/86
--- NOTE | 2017-06-30 20:05 | NUR ---
PATIENT RESTING IN BED WITH EYES CLOSED AND NO VISIBLE SIGNS OF DISTRESS. AT BEDSIDE. BED IN LOWEST POSITION, CALL LIGHT WITHIN REACH, AND BED ALARM ON. ENCOURAGED THE PATIENT'S TO CALL IF THEY HAVE NEEDS.
[2017-07-01] VITALS (7 sets, daily range): BP systolic 135–195; BP diastolic 65–90
[2017-07-01 05:38] LABS: BASOPHILS 0 % (0-2); EOSINOPHILS 0 % (0-7); HEMATOCRIT 38.6 % (42.0-54.0); IMMATURE GRANULOCYTES 1.5 % (0-5); LYMPHOCYTES 6.6 % (15-50); MCH 29.4 pg (26.0-34.0); MCHC 36.3 g/dL (31.0-37.0); MCV 81.1 fL (80.0-100.0); MEAN PLATELET VOLUME 9.9 fL (7.4-10.4); MONOCYTES 5.9 % (2-11); PLATELET COUNT 158 10x3/uL (130-400); RBC 4.76 10x6/uL (4.20-6.10)
[2017-07-01 06:05] LABS: ALBUMIN 2.6 g/dL (3.4-5.0); ANION GAP 14.8 mmol/L (8-16); BILIRUBIN - TOTAL 0.71 mg/dL (0.2-1.3); CALCIUM 8.7 mg/dL (8.5-10.1); CARBON DIOXIDE 22.4 mmol/L (21.0-32.0); CREATININE - SERUM 1.3 mg/dL (0.6-1.3); POTASSIUM - SERUM 4.2 mmol/L (3.5-5.1); PROTEIN - SERUM 6.7 g/dL (6.4-8.2)
--- NOTE | 2017-07-01 07:00 | NUR ---
REPORT RECIEVED ASSUMED CARE. PATIENT IN BED WITH IV INTACT. NO COMPLAINTS AT THIS TIME. CALL LIGHT WITHIN REACH.
--- NOTE | 2017-07-01 08:00 | NUR ---
ASSESSMENT COMPLETE AT THIS TIME. PATIENT IN BED WITH IV INTACT. NO COMPLAINTS. IV INTACT. CALL LIGHT WITHIN REACH.
--- NOTE | 2017-07-01 10:45 | NUR ---
PATIENT IN BED WITH EYES CLOSED RESTING QUIETLY. NO COMPLAINTS OR SIGNS OF DISTRESS. FAMILY AT BEDSIDE. CALL LIGHT WITHIN REACH.
--- NOTE | 2017-07-01 12:45 | NUR ---
PATIENT IN BED WITH IV INTACT. NO COMPLAINTS AT THIS TIME. CALL LIGHT WITHIN REACH.
--- NOTE | 2017-07-01 14:11 | NUR ---
DARYLHIN IVPB PER ORDER. IN ROOM. CALL LIGHT IN REACH.
--- NOTE | 2017-07-01 18:50 | NUR ---
PATIENT IN BED RESTING QUIETLY AT THIS TIME. IV INTACT. FAMILY AT BEDSIDE. CALL LIGHT WITHIN REACH.
--- NOTE | 2017-07-01 19:30 | NUR ---
PATIENT RESTING WITH EYES CLOSED AND NO VISIBLE SIGNS OF DISTRESS WITH AT BEDSIDE. BED IN LOWEST POSITION, CALL LIGHT WITHIN REACH, AND BED ALARM ON. ENCOURAGED THE PATIENT'S TO CALL IF THEY HAVE NEEDS.
[2017-07-02] VITALS: BP 173/86
[2017-07-02 04:00] VITALS: BP 166/80
[2017-07-02 04:39] LABS: BASOPHILS 0.1 % (0-2); EOSINOPHILS 0.1 % (0-7); HEMATOCRIT 39.6 % (42.0-54.0); HEMOGLOBIN 13.9 g/dL (13.5-17.5); IMMATURE GRANULOCYTES 1.7 % (0-5); LYMPHOCYTES 9.1 % (15-50); MCH 29.6 pg (26.0-34.0); MCHC 35.1 g/dL (31.0-37.0); MEAN PLATELET VOLUME 10.3 fL (7.4-10.4); MONOCYTES 6.2 % (2-11); NEUTROPHILS 82.8 % (40-80); PLATELET COUNT 179 10x3/uL (130-400); RBC 4.69 10x6/uL (4.20-6.10); RDW 13.4 % (11.5-14.5); WBC 11.9 10x3/uL (4.8-10.8)
[2017-07-02 04:40] LABS: MCV 84.4 fL (80.0-100.0)
[2017-07-02 05:02] LABS: ALBUMIN 2.7 g/dL (3.4-5.0); ANION GAP 18.7 mmol/L (8-16); BILIRUBIN - TOTAL 0.47 mg/dL (0.2-1.3); CALCIUM 8.9 mg/dL (8.5-10.1); POTASSIUM - SERUM 4.7 mmol/L (3.5-5.1); PROTEIN - SERUM 6.2 g/dL (6.4-8.2)
--- NOTE | 2017-07-02 07:51 | NUR ---
PATIENT IN BED WITH EYES CLOSED RESTING QUIETLY AT THIS TIME. IV INTACT. FAMILY AT BEDSIDE. CALL LIGHT WITHIN REACH.
[2017-07-02 08:18] VITALS: BP 196/79
--- NOTE | 2017-07-02 09:30 | NUR ---
PATIENT IN BED WITH NO COMPLAINTS. EYES CLOSED AT THIS TIME. IV INTACT. CALL LIGHT WITHIN REACH. FAMILY AT BEDSIDE.
--- NOTE | 2017-07-02 12:15 | NUR ---
PATIENT TOLERATED REGULAR DIET. RECIEVED BP MEDS FOR BP 185/95. IV INTACT. NOC OMPLAINTS. CALL LIGHT WITHIN REACH.
[2017-07-02 12:44] VITALS: BP 185/95
--- NOTE | 2017-07-02 14:30 | NUR ---
PATIENT IN BED WITH IV INTACT. NO COMPLAINTS. FAMILY AT BEDSIDE. CALL LIGHT WITHIN REACH.
--- NOTE | 2017-07-02 14:44 | NUR ---
NUTRITION F/U CHART REVIEWED, PT CURRENTLY SLEEPING WITH SPOUSE AT BEDSIDE. DIET RESUMED WITH 25% INTAKE LUNCH. CONTINUES PROCALAMINE AT 50 CC/HR. RD FOLLOWING
--- NOTE | 2017-07-02 16:10 | NUR ---
PATIENT IN BED WITH IV INTACT. NO COMPLAINTS OR SIGNS OF DISTRESS. FAMILY AT BEDSIDE. CALL LIGHT WITHIN REACH.
[2017-07-02 16:28] VITALS: BP 188/98
--- NOTE | 2017-07-02 17:01 | NUR ---
OT NOTE: PT COMPLETED BED MOB WITH SBA. PT COMPLETED ORAL HYGIENE WITH SET UP. PT COMPLETED BUE AAROM EXS FOR INCREASED I WITH ADLS. PT COMPLETED BUE POSITIONING TO DECREASE EDEMA. THANK YOU, LAZ LANGFORD/Gonzalez
--- NOTE | 2017-07-02 18:45 | NUR ---
PATIENT IN BED WITH IV INTACT. NO COMPLAINTS OR SIGNS OF DISTRESS. FAMILY AT BEDSIDE. CALL LIGHTW ITHKARI FUNEZ.
[2017-07-02 20:00] VITALS: BP 152/70
--- NOTE | 2017-07-03 02:00 | NUR ---
ASSISTED AIRPLANE DISPATCH CLERK ADRIANO IN TURNING PT ONTO HIS SIDE, NOTICED PT IV SITE IN RT AC BANDAGE WAS WET, OBTAINED FLUSH AND TRIED FLUCHING LINE. PT IV IS NO GOOD, SPENT 30 MIN TRYING TO FIND NEW IV SITE FOR PT. UNABLE TO LOCATE GOOD VEIN ASKED TONI BERNARDO TO ASSIST, PT UNDERSTOD, TONI BERNARDO SRCK PT ONCE AND UNABLE TO LOCATE VEIN WELL, CALLED ICU AND ASKED FOR ASSISTANCE WILL CONTINUE TO MONITOR PATIENT AND FLOOLW CARE PLAN
--- NOTE | 2017-07-03 02:30 | NUR ---
PATIENT RESTING IN BED WITH EYES CLOSED AND LATRELL BAXTER AT BEDSIDE. BED IN LOWEST POSITION AND CALL LIGHT WITHIN REACH. NO VISIBLE SIGNS OF DISTRESS
--- NOTE | 2017-07-03 03:15 | NUR ---
MANASA FROM ICU CAME DOWN TO STICK PT AND WAS UNSUCCESSFUL TWICE, SHE WENT AND CALLED EMM[facility] WHOM ATTEMPTED AND WAS UNSUCCESSFUL WELL, PAGED KRISTAL AND PENDING CALL BACK
[2017-07-03 04:00] VITALS: BP 148/72
--- NOTE | 2017-07-03 04:23 | NUR ---
KENYETTA JOHNS AND RECIEVED CALL BACK. ADVISED TO PUT ORDER IN FOR CARDIO VASCULAR NURSE TO [facility], ORDERD PLACED
[2017-07-03 05:53] LABS: BASOPHILS 0 % (0-2); EOSINOPHILS 0 % (0-7); HEMATOCRIT 38.4 % (42.0-54.0); HEMOGLOBIN 13.4 g/dL (13.5-17.5); IMMATURE GRANULOCYTES 1.4 % (0-5); LYMPHOCYTES 9.2 % (15-50); MCH 29.4 pg (26.0-34.0); MCHC 34.9 g/dL (31.0-37.0); MCV 84.2 fL (80.0-100.0); MEAN PLATELET VOLUME 10.1 fL (7.4-10.4); MONOCYTES 5.1 % (2-11); NEUTROPHILS 84.3 % (40-80); PLATELET COUNT 175 10x3/uL (130-400); RBC 4.56 10x6/uL (4.20-6.10); RDW 13.3 % (11.5-14.5); WBC 12.6 10x3/uL (4.8-10.8)
[2017-07-03 06:29] LABS: ALBUMIN 2.4 g/dL (3.4-5.0); ANION GAP 18.6 mmol/L (8-16); BILIRUBIN - TOTAL 0.38 mg/dL (0.2-1.3); CALCIUM 8.7 mg/dL (8.5-10.1); CARBON DIOXIDE 20.8 mmol/L (21.0-32.0); POTASSIUM - SERUM 4.4 mmol/L (3.5-5.1); PROTEIN - SERUM 6.1 g/dL (6.4-8.2)
[2017-07-03 06:30] LABS: CREATININE - SERUM 3.5 mg/dL (0.6-1.3)
--- NOTE | 2017-07-03 07:00 | NUR ---
PT REC'D FROM LATRELL BAXTER. RESTING IN BED WITH EYES CLOSED. NO SIGNS OF DISTRESS. RESP EVEN AND UNLABORED. NO IV ACCESS CURRENTLY. BED LOW, CALL LIGHT IN REACH, DENIES NEEDS. CPOC.
[2017-07-03 08:19] VITALS: BP 153/71
--- NOTE | 2017-07-03 08:45 | NUR ---
MORNING MEDS PASSED AT THIS TIME. CRUSHED AND PUT IN APPLESAUCE. PT TOLERATED THIS WELL. KANE, IV ACCESS NURSE RN, CALLED AND MESSAGE LEFT REGARDING NO IV ACCESS CURRENTLY. ASSESSMENT COMPLETED PER FLOWSHEET. BED LOW, CALL LIGHT IN REACH, ASSISTING WITH BREAKFAST. BED LOW, CALL LIGHT IN REACH, DENIES NEEDS. CPOC.
[2017-07-03 12:00] VITALS: BP 177/84
--- NOTE | 2017-07-03 12:42 | NUR ---
CURRENT FSBS 232. 12 UNITS OF INSULIN ADMINISTERED PER SS. STAT LOCK APPLIED TO R LEG. CLAMPED AT THIS TIME TO ATTEMPT TO OBTAIN URINE SAMPLE. BED LOW, CALL LIGHT IN REACH, DENIES NEEDS. CPOC.
--- NOTE | 2017-07-03 15:11 | NUR ---
RESTING QUIETLY IIN BED. FAMILY IN ROOM. DISCUSSED POSSIBILITIES OF REHAB WITH FAMILY. DENIES NEEDS.
[2017-07-03 16:17] VITALS: BP 167/77
[2017-07-03 17:06] LABS: CREATININE - URINE 60.7 mg/dL (30-125); PRO/CRE RATIO URINE 0.7 mg/g
[2017-07-03 17:13] LABS: APPEARANCE HAZY (CLEAR); BILIRUBIN NEGATIVE (NEGATIVE); COLOR YELLOW (YELLOW); GLUCOSE 50 mg/dL (NEGATIVE); KETONE NEGATIVE (NEGATIVE); NITRITE NEGATIVE (NEGATIVE); PROTEIN NEGATIVE (NEGATIVE); SPECIFIC GRAVITY 1.015 (1.005-1.020); UROBILINOGEN NORMAL (NORMAL)
[2017-07-03 17:14] LABS: LEUKOCYTE ESTERASE TRACE (NEGATIVE)
[2017-07-03 17:15] LABS: BACTERIA FEW /hpf (NONE SEEN); RED CELLS - URINE 25-50 /hpf (0-5)
--- NOTE | 2017-07-03 17:49 | NUR ---
OT NOTE: PT REQUIRED MIN A FOR BUE POSITIONING TO DECREASE RISK OF SKIN BREAKDOWN. PT COMPLETED BUE AAROM FOR INCREASE FX USE DURING ADLS. THANK YOU, LAZ LANGFORD/Gonzalez
[2017-07-03 20:00] VITALS: BP 196/87
--- NOTE | 2017-07-03 20:16 | NUR ---
PT IS SITTING IN BED WITH HOB AT 30 DEGREES, EYES ARE CLOSED WITH EVEN RISE AND FALL OF CHEST, PT OPENED EYES AT SOUND OF VOICE, STATED HAS PAIN ALL OVER, PFFERED PT TYLENOL OR OTHER PAIN MED ON DEC PT REFUSED, GFAVE HIM COLD WET TOWEL ON FORHEAD, WILL CONTINUE TO MONITOR AND FOLLOW PLAN OF CARE,
[2017-07-04] VITALS: BP 188/78
--- NOTE | 2017-07-04 02:00 | NUR ---
PT IN BED WITH NO DISTRESS. RESPIRATIONS ARE EVEN AND UNLABORED. VISITOR IS AT THE BEDSIDE. SIDE RAILS ARE UP X 2. BED IS LOW. CALL LIGHT IS WITHIN REACH.
[2017-07-04 05:42] LABS: BASOPHILS 0.1 % (0-2); EOSINOPHILS 0 % (0-7); HEMATOCRIT 36.3 % (42.0-54.0); HEMOGLOBIN 12.7 g/dL (13.5-17.5); IMMATURE GRANULOCYTES 2.3 % (0-5); MCH 29.1 pg (26.0-34.0); MCV 83.1 fL (80.0-100.0); MEAN PLATELET VOLUME 9.8 fL (7.4-10.4); MONOCYTES 5.3 % (2-11); NEUTROPHILS 84.3 % (40-80); PLATELET COUNT 172 10x3/uL (130-400); RBC 4.37 10x6/uL (4.20-6.10); RDW 12.9 % (11.5-14.5); WBC 12.6 10x3/uL (4.8-10.8)
[2017-07-04 06:07] LABS: ALBUMIN 2.4 g/dL (3.4-5.0); ANION GAP 20.4 mmol/L (8-16); BILIRUBIN - TOTAL 0.4 mg/dL (0.2-1.3); CALCIUM 8.8 mg/dL (8.5-10.1); CARBON DIOXIDE 18.3 mmol/L (21.0-32.0); CREATININE - SERUM 3.3 mg/dL (0.6-1.3); POTASSIUM - SERUM 4.7 mmol/L (3.5-5.1); PROTEIN - SERUM 5.7 g/dL (6.4-8.2); URIC ACID 7.6 mg/dL (2.6-7.2)
--- NOTE | 2017-07-04 08:00 | NUR ---
SLEEPING, BREATHING EVEN UNLABORED, BED LOWEST POSITION, CALL LIGHTIN REACH, FAMILY AT BEDSIDE, WILL CONTINUE TO MONITOR
--- NOTE | 2017-07-04 08:00 | NUR ---
RESTING WITHOUT DISTRESS.CALL LIGHT IN REACH
[2017-07-04 09:39] VITALS: BP 174/85
[2017-07-04 12:57] VITALS: BP 172/80
[2017-07-04 16:30] VITALS: BP 170/80
[2017-07-04 20:00] VITALS: BP 201/84
--- NOTE | 2017-07-04 20:22 | NUR ---
PATIENT IS AWAKE AND ALERT. PATIENT VERBALIZED URGE TO URINATE. PATIENT HAS A CESPEDES CATHETER IN, URINE IS DRAININGE. LATRELL BAXTER EXPLAINING TO PATIENT THAT HE HAS A CATHETER AND SHE SHOWED HIM THE COLLECTION BAG. THERE IS URINE IS THE TUBING, DRIPPING INTO THE CANNESTER. THE COLOR OF THE URINE IS LIGHT YELLOW. CESPEDES IS DRAINING TO GRAVITY. BED IS IN LOWEST POSITION, CALL LIGHT IN REACH. BED RIALS UP X'S 2.
[2017-07-05] VITALS: BP 193/158
[2017-07-05 04:00] VITALS: BP 194/96
[2017-07-05 05:30] LABS: BASOPHILS 0 % (0-2); EOSINOPHILS 0 % (0-7); HEMATOCRIT 36.1 % (42.0-54.0); HEMOGLOBIN 12.9 g/dL (13.5-17.5); IMMATURE GRANULOCYTES 3.4 % (0-5); LYMPHOCYTES 7.9 % (15-50); MCH 29.2 pg (26.0-34.0); MCHC 35.7 g/dL (31.0-37.0); MCV 81.7 fL (80.0-100.0); MEAN PLATELET VOLUME 9.7 fL (7.4-10.4); MONOCYTES 4.8 % (2-11); NEUTROPHILS 83.9 % (40-80); PLATELET COUNT 142 10x3/uL (130-400); RBC 4.42 10x6/uL (4.20-6.10); RDW 12.5 % (11.5-14.5); WBC 12.2 10x3/uL (4.8-10.8)
[2017-07-05 06:05] LABS: ALBUMIN 2.5 g/dL (3.4-5.0); ANION GAP 16.1 mmol/L (8-16); BILIRUBIN - TOTAL 0.6 mg/dL (0.2-1.3); CALCIUM 8.9 mg/dL (8.5-10.1); CARBON DIOXIDE 21.5 mmol/L (21.0-32.0); POTASSIUM - SERUM 4.6 mmol/L (3.5-5.1); PROTEIN - SERUM 5.6 g/dL (6.4-8.2)
[2017-07-05 06:11] LABS: CREATININE - SERUM 1.7 mg/dL (0.6-1.3)
[2017-07-05 09:31] VITALS: BP 181/89
[2017-07-05 12:46] VITALS: BP 181/85
[2017-07-05 16:00] VITALS: BP 182/82
--- NOTE | 2017-07-05 17:09 | NUR ---
OT NOTE: PT COMPLETED BUE FM/GROSS MOTOR SKILLS FOR INCREASED I WITH DRESSING ACTIVITIES. PT COMPLETED BUE AAROM EXS FOR INCREASED I WITH ADLS. PT COMPLETED ORAL HYGIENE WITH SIVAN KHAN, LAZ LANGFORD/Gonzalez
[2017-07-05 20:00] VITALS: BP 165/76
[2017-07-06] VITALS: BP 162/78
[2017-07-06 04:00] VITALS: BP 155/74
--- NOTE | 2017-07-06 04:19 | NUR ---
PT ALERT, ORIENTED EXCEPT FOR TIME. TURNED PT. CESPEDES CATH DRAINING URINE. PT HELPS WITH TURNS AND MOVES AROUND IN BED. PT HAS FREQUENT HICCUPS. GAVE THORAZINE. 0400 BLOOD SUGAR 140 NO COVERAGE PER SS. NO NEEDS WILL CONTINE TO MONITOR.
--- NOTE | 2017-07-06 07:00 | NUR ---
REPORT RECIEVED ASSUMED CARE. PATIENT IN BED WITH IV INTACT. NO COMPLAINTS OR SIGNS OF DISTRESS. CALL LIGHT WITHIN REACH. FAMILY AT BEDSIDE.
[2017-07-06 07:05] LABS: BASOPHILS 0.1 % (0-2); EOSINOPHILS 0 % (0-7); HEMATOCRIT 39.5 % (42.0-54.0); HEMOGLOBIN 14.1 g/dL (13.5-17.5); IMMATURE GRANULOCYTES 5.1 % (0-5); LYMPHOCYTES 8.1 % (15-50); MCH 29.4 pg (26.0-34.0); MCHC 35.7 g/dL (31.0-37.0); MCV 82.3 fL (80.0-100.0); MEAN PLATELET VOLUME 9.4 fL (7.4-10.4); MONOCYTES 4.8 % (2-11); NEUTROPHILS 81.9 % (40-80); PLATELET COUNT 122 10x3/uL (130-400); RDW 12.7 % (11.5-14.5); WBC 11.7 10x3/uL (4.8-10.8)
[2017-07-06 07:18] LABS: ALBUMIN 2.7 g/dL (3.4-5.0); ANION GAP 11.7 mmol/L (8-16); BILIRUBIN - TOTAL 0.68 mg/dL (0.2-1.3); CALCIUM 8.9 mg/dL (8.5-10.1); CARBON DIOXIDE 25.4 mmol/L (21.0-32.0); CREATININE - SERUM 1.3 mg/dL (0.6-1.3); MAGNESIUM - SERUM 2.2 mg/dL (1.8-2.4); POTASSIUM - SERUM 5.1 mmol/L (3.5-5.1); PROTEIN - SERUM 6.2 g/dL (6.4-8.2)
[2017-07-06 08:00] VITALS: BP 138/97
--- NOTE | 2017-07-06 09:30 | NUR ---
PATIENT TOOK PO MEDS AT THIS TIME. HAD SMALL AMOUNT OF TROUBLE SWALLOWING PILLS. WILL RECOMMEND PATIENT TAKE WITH APPLESAUCE WITH FEWER MEDS AT A TIME. VERBALIZED UNDERSTANDING. CALL LIGHT WITHIN REACH. FAMILY AT BEDSIDE.
--- NOTE | 2017-07-06 11:40 | NUR ---
ASSISTED BACK TO BED FROM CHAIR MAX ASSIST OF 2. POSITIONED IN BED FOR COMFORT. REQUESTED AND GIVNE ONE HYDROCODONE PO FOR C/O BACK PAIN LEVEL 7. WILL MONITOR.
[2017-07-06 12:36] VITALS: BP 130/65
--- NOTE | 2017-07-06 14:27 | NUR ---
PATIENT IN BED WITH IV INTACT. NO COMPLAINTS OR SIGNS OF DISTRESS. FAMILY AT BEDSIDE. CALL LIGHT WITHIN REACH.
[2017-07-06 16:09] VITALS: BP 113/65
--- NOTE | 2017-07-06 18:48 | NUR ---
PATIENT IN BED WITH IV INTACT. NO COMPLAINTS AT THIS TIME. EYES CLOSED RESTING QUIETLY. CALL LIGHT WITHIN REACH.
[2017-07-06 20:00] VITALS: BP 163/78
[2017-07-07 00:52] VITALS: BP 155/76
--- NOTE | 2017-07-07 02:37 | NUR ---
PT RESTING QUIETLY IN BED. NEURO CHECKS WNL. DENIES PAIN. REPOSITIONED IN BED. NO OTHER NEEDS. WILL CONTINUE TO MONITOR.
[2017-07-07 04:00] VITALS: BP 165/89
[2017-07-07 06:44] LABS: BASOPHILS 0.1 % (0-2); EOSINOPHILS 0 % (0-7); HEMATOCRIT 41.2 % (42.0-54.0); HEMOGLOBIN 14.4 g/dL (13.5-17.5); IMMATURE GRANULOCYTES 4.6 % (0-5); LYMPHOCYTES 7.3 % (15-50); MCV 83.1 fL (80.0-100.0); MEAN PLATELET VOLUME 9.6 fL (7.4-10.4); MONOCYTES 4.3 % (2-11); NEUTROPHILS 83.7 % (40-80); PLATELET COUNT 131 10x3/uL (130-400); RBC 4.96 10x6/uL (4.20-6.10); RDW 12.8 % (11.5-14.5)
[2017-07-07 06:45] LABS: WBC 17.1 10x3/uL (4.8-10.8)
--- NOTE | 2017-07-07 07:00 | NUR ---
REPORT RECIEVED ASSUMED CARE. PATIENT IN BED WITH IV INTACT. NO COMPLAINTS OR SIGNS OF DISTRESS AT THIS TIME. CALL LIGHT WITHIN REACH.
[2017-07-07 07:05] LABS: ALBUMIN 2.9 g/dL (3.4-5.0); ANION GAP 12.9 mmol/L (8-16); BILIRUBIN - TOTAL 0.85 mg/dL (0.2-1.3); CALCIUM 8.8 mg/dL (8.5-10.1); CARBON DIOXIDE 23.5 mmol/L (21.0-32.0); CREATININE - SERUM 1.3 mg/dL (0.6-1.3); POTASSIUM - SERUM 5.4 mmol/L (3.5-5.1); PROTEIN - SERUM 5.8 g/dL (6.4-8.2)
[2017-07-07 08:15] VITALS: BP 162/76
--- NOTE | 2017-07-07 10:21 | NUR ---
SPOKE WITH DR. ESCOTO ABOUT PATIENTS K+ 5.4. NO NEW ORDERS RECIEVED STATED THAT RENAL WILL ADJUST MEDS FOR POTASSIUM. RENAL NOTE STATED LEAVE ON LOSARTAN WILL MONITOR K+.
--- NOTE | 2017-07-07 10:35 | NUR ---
SPOKE WITH DR. MCKENZIE ABOUT PATIENTS K + NEW ORDERS RECIEVED AND CARRIED OUT. PATIENT IN BED WITH NO COMPLAINTS. CALL LIGHT WITHIN REACH.
--- NOTE | 2017-07-07 10:45 | NUR ---
PATIENT SITTING UP WITH EYES OPEN. NO COMPLAINTS. STATED FEELING BETTER TODAY. IV INTACT. CALL LIGHT WITHIN REACH. FAMILY AT BEDSIDE.
--- NOTE | 2017-07-07 15:30 | NUR ---
PATIENT IN BED RESTING QUIETLY AT THIS TIME. IV INTACT. FAMILY AT BEDSIDE. CALL LIGHT WITHIN REACH.
[2017-07-07 15:58] VITALS: BP 126/89
--- NOTE | 2017-07-07 18:18 | NUR ---
PATIENT IN BED WITH IV INTACT. NO COMPLAINTS AT THIS TIME. LAYING ON SIDE WITH NO SIGNS OF DISTRESS. CALL LIGHT WITHIN REACH.
[2017-07-07 19:00] VITALS: BP 179/77
[2017-07-08 04:00] VITALS: BP 171/78
[2017-07-08 05:58] LABS: HEMATOCRIT 43.2 % (42.0-54.0); HEMOGLOBIN 15.4 g/dL (13.5-17.5); MCH 29.5 pg (26.0-34.0); MCHC 35.6 g/dL (31.0-37.0); MCV 82.8 fL (80.0-100.0); MEAN PLATELET VOLUME 9.6 fL (7.4-10.4); PLATELET COUNT 160 10x3/uL (130-400); RBC 5.22 10x6/uL (4.20-6.10); RDW 12.8 % (11.5-14.5); WBC 22.3 10x3/uL (4.8-10.8)
[2017-07-08 06:02] LABS: ANION GAP 14.5 mmol/L (8-16); CALCIUM 9.1 mg/dL (8.5-10.1); CARBON DIOXIDE 23.6 mmol/L (21.0-32.0); CREATININE - SERUM 1.3 mg/dL (0.6-1.3); POTASSIUM - SERUM 5.1 mmol/L (3.5-5.1)
[2017-07-08 06:43] LABS: LYMPHOCYTES 11 % (15-50); MONOCYTES 4 % (2-11); NEUTROPHILS 82 % (40-80); PLATELET ESTIMATE NORMAL; ROULEAUX OCC
--- NOTE | 2017-07-08 07:00 | NUR ---
RECIEVED REPORT, ASSUMED CARE OF PATIENT. NO COMPLAINTS AT THIS TIME. RESTING, EYES SHUT, AT BEDSIDE. BED IN LOWEST POSITION, SIDE RAILS UP X 2, CALL LIGHT WITHIN REACH.
[2017-07-08 09:26] VITALS: BP 159/91
--- NOTE | 2017-07-08 12:00 | NUR ---
PT RESTING IN BED. AT BEDSIDE. NO CHANGE FROM SHIFT ASSESSMENT. BED IN LOWEST POSITION, SIDE RAILS UP X 2, CALL LIGHT WITHIN REACH.
[2017-07-08 12:47] VITALS: BP 121/100
--- NOTE | 2017-07-08 13:55 | NUR ---
OT NOTE: PT VERY LETHARGIC TODAY; AROUSED WITH VERBAL CUES. PERFORMED SOME VISUAL TASKS, HOWEVER, PT WITH DIFFICULTY STAYING AWAKE. WILL ATTEMPT IN PM
--- NOTE | 2017-07-08 14:32 | NUR ---
NUTRITION F/U CHART REVIEWED, FAMILY AT BEDSIDE. PT TOLERATING RENAL DIET, 25 TO 50% INTAKE RECENT MEALS. PROCALAMINE @ 50 CC/HR. RD FOLLOWING
[2017-07-08 16:55] VITALS: BP 170/76
[2017-07-08 19:00] VITALS: BP 153/70
--- NOTE | 2017-07-08 19:15 | NUR ---
PT IS SITTING UP IN BED, NO SIGNS OF DISTRESS, BED IN LOW POSITION, CALL LIGHT IN REACH, VERBALIZED NO NEEDS AT THIS TIME
--- NOTE | 2017-07-08 19:34 | NUR ---
PT RESTING IN BED, EYES SHUT. NO SIGNS OF ACUTE DISTRESS. CESPEDES PATENT, DRAINING. L MIDLINE IN PLACE, IV FLUIDS ORDERED, DRSG C/D/I. BED IN LOWEST POSITION, SIDE RAILS UP X 2, CALL LIGHT WITHIN REACH.
[2017-07-09] VITALS: BP 140/71
[2017-07-09 04:00] VITALS: BP 145/79
[2017-07-09 06:16] LABS: BASOPHILS 0.2 % (0-2); EOSINOPHILS 0 % (0-7); HEMATOCRIT 45.6 % (42.0-54.0); IMMATURE GRANULOCYTES 6.7 % (0-5); LYMPHOCYTES 8.9 % (15-50); MCH 29.4 pg (26.0-34.0); MCHC 35.1 g/dL (31.0-37.0); MCV 83.7 fL (80.0-100.0); MEAN PLATELET VOLUME 9.7 fL (7.4-10.4); NEUTROPHILS 79.2 % (40-80); PLATELET COUNT 196 10x3/uL (130-400); RBC 5.45 10x6/uL (4.20-6.10); WBC 25.4 10x3/uL (4.8-10.8)
[2017-07-09 06:27] LABS: ALBUMIN 3.1 g/dL (3.4-5.0); ANION GAP 15.4 mmol/L (8-16); BILIRUBIN - TOTAL 0.98 mg/dL (0.2-1.3); CALCIUM 9.2 mg/dL (8.5-10.1); CARBON DIOXIDE 22.8 mmol/L (21.0-32.0); CREATININE - SERUM 1.5 mg/dL (0.6-1.3); POTASSIUM - SERUM 5.2 mmol/L (3.5-5.1); PROTEIN - SERUM 6.6 g/dL (6.4-8.2)
--- NOTE | 2017-07-09 07:30 | NUR ---
RECIEVED REPORT, ASSUMED CARE OF PT. NO COMPLAINTS AT THIS TIME. L MIDLINE INTACT, PATENT, FLUIDS RUNNING ORDERED, DRSG C/D/I. CESPEDES PATENT, DRAINING, SECURED WITH STAT-LOCK. AT BEDSIDE. BED IN LOWEST POSITION, SIDE RAILS UP X 2, CALL LIGHT WITHIN REACH.
[2017-07-09 09:13] VITALS: BP 146/66
--- NOTE | 2017-07-09 10:20 | NUR ---
CESPEDES CATHETER D/C'D ORDERED. PT TOLERATED WITH MINIMAL DISCOMFORT. URINAL AT BEDSIDE. BED IN LOWEST POSITION, SIDE RAILS UP X 2, CALL LIGHT WITHIN REACH.
[2017-07-09 10:46] VITALS: BP 140/71
--- NOTE | 2017-07-09 12:00 | NUR ---
PT RESTING IN BED. NO SIGNS OF ACUTE DISTRESS.
--- NOTE | 2017-07-09 14:19 | NUR ---
OT NOTE: PT RESTING IN CHAIR; AWAKENED EASILY WITH VERBAL CUES. REPORTED THAT PHYSICAL THERAPIST WAS COMING IN A BIT TO PUT PT BACK TO BED. TOLD HER THAT THIS THERAPIST COULD HELP, I NEEDED TO SEE HOW HE WAS DOING. REQUIRED MOD ASSIST TO GET PT IN PROPER POSITIONING FOR TRANSFER; REQUIRED MAX ASSIST WITH TRANSFER FROM CHAIR TO BED WITH BLOCKING OF R KNEE. MOD ASSIST FOR BED MOB. PT REQUIRED INCREASED AMOUNT OF ASSIST THIS TIME VS LAST WEEK. ALSO REQUIRED INCREASED ASSIST WITH SITTING BALANCE; NO CHANGES NOTED WITH VISUAL FC; REPORTED THAT SHE ASSISTED HIM WITH FEEDING, BUT HE WAS ABLE TO HOLD A CUP AND BRING IT TO HIS MOUTH. LAST WEEK, HE WAS ABLE TO FEED HIMSELF WITH SET UP.
--- NOTE | 2017-07-09 16:52 | NUR ---
OT NOTE: PT COMPLETED ORAL HYGIENE WITH CGA. PT COMPLETED POSITIONING WITH ROSALBA Pascual. PT COMPLETED BUE AAROM TO FACILITATE NEURO PLASTICITY AND FUNCTIONAL RETURN. THANK YOU, MARYLIN LANGFORD
--- NOTE | 2017-07-09 17:15 | NUR ---
PT RESTING IN BED. NO SIGNS OF ACUTE DISTRESS. AT BEDSIDE. BED IN LOWEST POSITION, SIDE RAILS UP X 2, CALL LIGHT WITHIN REACH.
[2017-07-09 18:18] VITALS: BP 139/70
[2017-07-09 20:00] VITALS: BP 137/79
--- NOTE | 2017-07-09 23:06 | NUR ---
PT SLEEPING, EYES SHUT, EASILY AROUSED. SLEEPING AT BEDSIDE. IV INFUSING ORDERED. BED IN LOWEST POSITION, SIDE RAILS UP X 2, CALL LIGHT WITHIN REACH.
[2017-07-10] VITALS: BP 139/71
--- NOTE | 2017-07-10 01:05 | NUR ---
PT SLEEPING EASILY AROUSED TO VERBAL STIMULI, AT BEDSIDE, DENIES NEEDS.
--- NOTE | 2017-07-10 03:00 | NUR ---
PT AWAKE EYES OPEN. SPEECH SOMEWHAT GARBLED BUT UNDERSTANDABLE. STATES ITS 1982 HIS NAME IS DUSTY AND HE IS IN THE HOPITAL FOR THE REASON TO "GET A COOKIE" PT'S AT BEDSIDE. PT DENIES PAIN AND PRESENTS WITH NO OBVIOUS DISTRESS
[2017-07-10 04:00] VITALS: BP 168/89
--- NOTE | 2017-07-10 05:30 | NUR ---
PT WAS ABLE TO TAKE PO MEDS WHOLE WITH PUDDING. NO SWALLOWING DIFFICULTY NOTED. PT REMINDED TO TAKE SMALL SIPS AND TUCK CHIN WHILE SWALLOWING. PT FAIR WITH COMPLIANCE
[2017-07-10 06:04] LABS: BASOPHILS 0.2 % (0-2); EOSINOPHILS 0 % (0-7); HEMATOCRIT 46.5 % (42.0-54.0); HEMOGLOBIN 16.2 g/dL (13.5-17.5); IMMATURE GRANULOCYTES 5.7 % (0-5); LYMPHOCYTES 7.4 % (15-50); MCH 29.2 pg (26.0-34.0); MCHC 34.8 g/dL (31.0-37.0); MCV 83.9 fL (80.0-100.0); MEAN PLATELET VOLUME 9.9 fL (7.4-10.4); MONOCYTES 4.1 % (2-11); NEUTROPHILS 82.6 % (40-80); PLATELET COUNT 174 10x3/uL (130-400); RBC 5.54 10x6/uL (4.20-6.10); RDW 13.1 % (11.5-14.5); WBC 27.9 10x3/uL (4.8-10.8)
[2017-07-10 06:18] LABS: ALBUMIN 2.9 g/dL (3.4-5.0); ANION GAP 15.5 mmol/L (8-16); BILIRUBIN - TOTAL 0.86 mg/dL (0.2-1.3); CALCIUM 8.9 mg/dL (8.5-10.1); CARBON DIOXIDE 21.7 mmol/L (21.0-32.0); CREATININE - SERUM 1.5 mg/dL (0.6-1.3); POTASSIUM - SERUM 5.2 mmol/L (3.5-5.1); PROTEIN - SERUM 6.3 g/dL (6.4-8.2)
[2017-07-10 08:09] VITALS: BP 149/71
[2017-07-10 12:27] VITALS: BP 127/71
[2017-07-10 16:24] VITALS: BP 122/60
--- NOTE | 2017-07-10 16:46 | NUR ---
IN AND OUT CATH PERFORMED USING STERILE TECHNIQUE. URINE SPECIMEN OBTAINED AND SENT TO THE LAB. DRESSING TO LUE MIDLINE CHANGED PER PROTOCOL USING STERILE TECHNIQUE WELL. CURRENT FSBS 138. NO INSULIN ADMINISTERED PER SS. BED LOW, CALL LIGHT IN REACH, DENIES NEEDS. CPOC.
[2017-07-10 17:29] LABS: APPEARANCE CLEAR (CLEAR); BILIRUBIN NEGATIVE (NEGATIVE); COLOR YELLOW (YELLOW); GLUCOSE NEGATIVE (NEGATIVE); KETONE NEGATIVE (NEGATIVE); LEUKOCYTE ESTERASE NEGATIVE (NEGATIVE); NITRITE NEGATIVE (NEGATIVE); PROTEIN NEGATIVE (NEGATIVE); UROBILINOGEN NORMAL (NORMAL)
[2017-07-10 20:00] VITALS: BP 161/79
--- NOTE | 2017-07-10 21:10 | NUR ---
AWAKE,ALERT,NO COMPLAITNS. IV INFUSING TO LEFT MIDLINE WIHTOUT REDNESS OR EDEMA NOTED..FAMILY AT BEDSIDE. CL IN REACH.
[2017-07-11] VITALS: BP 137/53
--- NOTE | 2017-07-11 02:00 | NUR ---
PT IN BED WITH NO DISTRESS. RESPIRATIONS ARE EVEN AND UNLABORED. SON IS AT THE BEDSIDE. SIDE RAILS X 2. BED IS LOW. CALL LIGHT IS IN REACH.
--- NOTE | 2017-07-11 02:33 | NUR ---
RESTING QUIETLY. NO DISTRESS NOTED. SON REMAINS AT BEDSIDE.
[2017-07-11 04:00] VITALS: BP 142/72
[2017-07-11 05:38] LABS: BASOPHILS 0.1 % (0-2); EOSINOPHILS 0 % (0-7); HEMATOCRIT 45.6 % (42.0-54.0); HEMOGLOBIN 16.2 g/dL (13.5-17.5); IMMATURE GRANULOCYTES 4.7 % (0-5); LYMPHOCYTES 6.8 % (15-50); MCH 29.6 pg (26.0-34.0); MCHC 35.5 g/dL (31.0-37.0); MCV 83.4 fL (80.0-100.0); MEAN PLATELET VOLUME 10.3 fL (7.4-10.4); MONOCYTES 3.9 % (2-11); NEUTROPHILS 84.5 % (40-80); PLATELET COUNT 159 10x3/uL (130-400); RBC 5.47 10x6/uL (4.20-6.10); RDW 13.2 % (11.5-14.5)
[2017-07-11 05:58] LABS: ALBUMIN 3.1 g/dL (3.4-5.0); ANION GAP 14.7 mmol/L (8-16); BILIRUBIN - TOTAL 1.1 mg/dL (0.2-1.3); CALCIUM 9.5 mg/dL (8.5-10.1); CARBON DIOXIDE 20.8 mmol/L (21.0-32.0); CREATININE - SERUM 1.4 mg/dL (0.6-1.3); POTASSIUM - SERUM 5.5 mmol/L (3.5-5.1); PROTEIN - SERUM 6.1 g/dL (6.4-8.2)
--- NOTE | 2017-07-11 07:45 | NUR ---
PT AOX4 RESP EVEN AND NONLABORED PT DENIES NEEDS AT THIS TIME IV TO LEFT UPPER ARM PATENT AND INTACT AT THIS TIME SRX2 BED AT LOWEST SETTING CALL LIGHT WITHIN REACH WILL CONTINUE TO MONITOR
[2017-07-11 08:02] VITALS: BP 156/81
[2017-07-11 12:21] VITALS: BP 134/56
--- NOTE | 2017-07-11 13:30 | NUR ---
CM REASSESSMENT NOTE: UPDATE SENT TO [facility]
[2017-07-11] MEDS ORDERED: COZAAR50 MG PO (14:54)
[2017-07-11] MEDS ORDERED: NORVASC5 MG PO (14:54)
[2017-07-11] MEDS ORDERED: ACETAMINOPHEN325 MG PO (14:54)
[2017-07-11] MEDS ORDERED: ASPIRIN325 MG PO (14:54)
[2017-07-11] MEDS ORDERED: PROTONIX40 MG PO (14:55)
[2017-07-11] MEDS ORDERED: VELTASSA8.4 GM PO (14:55)
[2017-07-11] MEDS ORDERED: ARTIFICIAL TEAR15 ML EACH EYE (14:55)
[2017-07-11] MEDS ORDERED: PLAVIX75 MG PO (14:55)
[2017-07-11] MEDS ORDERED: PRAVACHOL20 MG PO (15:21)
[2017-07-11 16:01] VITALS: BP 128/56
[2017-07-11 20:00] VITALS: BP 140/65
--- NOTE | 2017-07-11 23:58 | NUR ---
PATIENT IS RESTING QUIETLY WITH EYES CLOSED. NO SIGNS OF DISTRESS NOTED. BED IN LOWEST POSITION, CALL LIGHT IN REACH. BED RIALS UP X'S 2. PATIENT'S IS IN THE RECLINER, SHE REQUESTED A DIFFERENT PILLOW, BROUGHT HER A PILLOW.
[2017-07-12] VITALS: BP 133/63
[2017-07-12 04:00] VITALS: BP 141/72
[2017-07-12 06:10] LABS: BASOPHILS 0.2 % (0-2); EOSINOPHILS 0 % (0-7); HEMATOCRIT 45.5 % (42.0-54.0); IMMATURE GRANULOCYTES 3.3 % (0-5); LYMPHOCYTES 6.9 % (15-50); MCH 29.4 pg (26.0-34.0); MCHC 35.2 g/dL (31.0-37.0); MCV 83.6 fL (80.0-100.0); MEAN PLATELET VOLUME 10.2 fL (7.4-10.4); MONOCYTES 3.9 % (2-11); NEUTROPHILS 85.7 % (40-80); PLATELET COUNT 163 10x3/uL (130-400); RBC 5.44 10x6/uL (4.20-6.10); RDW 13.4 % (11.5-14.5); WBC 28.7 10x3/uL (4.8-10.8)
[2017-07-12 07:00] LABS: ALBUMIN 2.9 g/dL (3.4-5.0); ANION GAP 17.1 mmol/L (8-16); BILIRUBIN - TOTAL 1.13 mg/dL (0.2-1.3); CALCIUM 8.8 mg/dL (8.5-10.1); CARBON DIOXIDE 17.7 mmol/L (21.0-32.0); CREATININE - SERUM 1.6 mg/dL (0.6-1.3); POTASSIUM - SERUM 5.8 mmol/L (3.5-5.1); PROTEIN - SERUM 5.7 g/dL (6.4-8.2)
[2017-07-12 07:58] VITALS: BP 163/73
--- NOTE | 2017-07-12 08:26 | NUR ---
CM REASSESSMENT NOTE: PATIENT IS DISCHARGING PATIENT TO [facility] TODAY BY FACILITY VAN TO A SKILLED BED. AWARE AND AT BEDSIDE. IMM SERVED
[2017-07-12] MEDS ORDERED: DECADRON4 MG PO (08:46)
--- NOTE | 2017-07-12 08:58 | NUR ---
PT AOX4 RESP EVEN AND NONLABORED PT DENIES NEEDS AT THIS TIME IV TO LEFT PICC LINE PATENT AND INTACT AT TIME SRX2 BED AT LOWEST SETTING CALL LIGHT WITHIN REACH WILL CONTINUE TO MONITOR
--- NOTE | 2017-07-12 09:53 | NUR ---
PT DISCHARGE INSTRUCTIONS AND PAPERWORK FOR FACILITY GIVEN TO PT AT THIS TIME
--- NOTE | 2017-07-12 10:06 | NUR ---
PT TAKEN VIA WHEELCHAIR TO [facility] COOPER FROM FACILITLY AT THIS TIME
== END 2017-07-12 10:07 | DRG 64 ==
LOC: D.ER 10:37 → D.MS 19:25
PROVIDERS: Emergency Medicine; Family Medicine Adult Medicine; Internal Medicine Nephrology; Physician Assistant; ADMIT Family Medicine
DX: I63.9 Cerebral infarction, unspecified (principal); G93.6 Cerebral edema; N17.9 Acute kidney failure, unspecified; I36.9 Nonrheumatic tricuspid valve disorder, unspecified; R51 Headache; E11.9 Type 2 diabetes mellitus without complications; I25.10 Atherosclerotic heart disease of native coronary artery without angina pectoris; H53.9 Unspecified visual disturbance; I65.1 Occlusion and stenosis of basilar artery; I10 Essential (primary) hypertension; E78.5 Hyperlipidemia, unspecified; R27.8 Other lack of coordination; I65.03 Occlusion and stenosis of bilateral vertebral arteries; E87.5 Hyperkalemia

== ENCOUNTER 2017-07-15 23:56 | Inpatient (IN) | payer MEDICARE ==
[~2017-07-15 23:56] MED LIST changes: +ACETAMINOPHEN325 MG PO; +ARTIFICIAL TEAR15 ML EACH EYE; +ASPIRIN325 MG PO; +COZAAR50 MG PO; +DECADRON4 MG PO; +PRAVACHOL20 MG PO; +VELTASSA8.4 GM PO
[2017-07-16 01:40] LABS: HEMATOCRIT 47.7 % (42.0-54.0); HEMOGLOBIN 16.9 g/dL (13.5-17.5); MCH 29.5 pg (26.0-34.0); MCHC 35.4 g/dL (31.0-37.0); MCV 83.2 fL (80.0-100.0); MEAN PLATELET VOLUME 10.4 fL (7.4-10.4); PLATELET COUNT 122 10x3/uL (130-400); RBC 5.73 10x6/uL (4.20-6.10); RDW 13.7 % (11.5-14.5); WBC 22.5 10x3/uL (4.8-10.8)
[2017-07-16 01:55] LABS: BILIRUBIN - TOTAL 0.91 mg/dL (0.2-1.3); CALCIUM 8.8 mg/dL (8.5-10.1); CREATININE - SERUM 2.4 mg/dL (0.6-1.3); PROTEIN - SERUM 6.2 g/dL (6.4-8.2)
[2017-07-16 02:02] LABS: LYMPHOCYTES 5 % (15-50); NEUTROPHILS 95 % (40-80); PLATELET ESTIMATE DECREASED
[2017-07-16 02:08] LABS: ANION GAP 19.2 mmol/L (8-16); CARBON DIOXIDE 17.1 mmol/L (21.0-32.0)
[2017-07-16 02:09] LABS: POTASSIUM - SERUM 6.3 mmol/L (3.5-5.1)
[2017-07-16 02:25] LABS: APPEARANCE CLEAR (CLEAR); BILIRUBIN NEGATIVE (NEGATIVE); COLOR YELLOW (YELLOW); GLUCOSE 1000 mg/dL (NEGATIVE); KETONE NEGATIVE (NEGATIVE); NITRITE NEGATIVE (NEGATIVE); PROTEIN NEGATIVE (NEGATIVE); SPECIFIC GRAVITY 1.015 (1.005-1.020); UROBILINOGEN NORMAL (NORMAL)
[2017-07-16 02:42] LABS: AMYLASE - SERUM 98 U/L (25-115); LIPASE 770 U/L (73-393)
[2017-07-16 02:48] LABS: KETONE - SERUM SMALL mg/dL (NEGATIVE)
--- NOTE | 2017-07-16 10:40 | NUR ---
AT 0830, PT ARRIVED FROM ER VIA STRETCHER. PT RESPONDS TO PAINFUL STIMULI SUCH MOANING WHEN BEING MOVED OVER TO BED. PRAKASH MAT PLACED AND ALARM ON. CESPEDES DRAINING CLEAR YELLOW URINE. AT BEDSIDE.
--- NOTE | 2017-07-16 10:44 | NUR ---
DOES NOT KNOW MEDICATIONS THAT PATIENT IS TAKING. [facility] CALLED AND WILL FAX OVER MED LIST FOR MED REC.
--- NOTE | 2017-07-16 11:55 | NUR ---
FSBS 263 HUMALOG 10 UNITS GIVEN SQ RT ARM
[2017-07-16 12:20] VITALS: BP 140/64
[2017-07-16] MEDS ORDERED: COZAAR100 MG PO (13:11)
[2017-07-16] MEDS ORDERED: SENNA LAXATIVE8.6 MG PO (13:14)
[2017-07-16 13:36] LABS: ANION GAP 18.1 mmol/L (8-16); CALCIUM 8.7 mg/dL (8.5-10.1); CREATININE - SERUM 1.9 mg/dL (0.6-1.3); MAGNESIUM - SERUM 2.7 mg/dL (1.8-2.4); PHOSPHOROUS 3.6 mg/dL (2.5-4.9); POTASSIUM - SERUM 5.8 mmol/L (3.5-5.1)
[2017-07-16 13:38] LABS: CARBON DIOXIDE 12.7 mmol/L (21.0-32.0)
[2017-07-16 15:40] VITALS: BP 126/62; BMI 28.9
[2017-07-16 16:24] VITALS: BP 131/71
--- NOTE | 2017-07-16 17:42 | NUR ---
FSBS 253 HUMALOG 10 UNITS GIVEN SQ LT ARM
[2017-07-16 19:00] VITALS: BP 132/60
--- NOTE | 2017-07-16 19:10 | NUR ---
REC REPORT ASSUMED CARE OF PATIENT. RESTING QUIETLY. STATED HIS NAME THAT WAS BARELY AUDIBLE. HIS SON IS PRESENT IN ROOM. DENIES ANY NEEDS OR CONCERNS.
--- NOTE | 2017-07-16 19:44 | NUR ---
OT NOTE: POSITIONING WITH MAX A TO DECREASE RISK OF SKIN BREAKDOWN. THANK YOU, LAZ LANGFORD/Gonzalez
[2017-07-17] VITALS (7 sets, daily range): BP systolic 107–152; BP diastolic 50–72; BMI 28.8
--- NOTE | 2017-07-17 04:45 | NUR ---
RESTING QUIETLY WITH EYES CLOSED. NO S/S OF DISCOMFORT. SON AT BEDSIDE.
[2017-07-17 05:54] LABS: BASOPHILS 0 % (0-2); EOSINOPHILS 0.1 % (0-7); HEMATOCRIT 40.9 % (42.0-54.0); HEMOGLOBIN 14.1 g/dL (13.5-17.5); IMMATURE GRANULOCYTES 0.5 % (0-5); MCH 28.9 pg (26.0-34.0); MCHC 34.5 g/dL (31.0-37.0); MCV 83.8 fL (80.0-100.0); MEAN PLATELET VOLUME 10.3 fL (7.4-10.4); MONOCYTES 3.5 % (2-11); NEUTROPHILS 88.9 % (40-80); RBC 4.88 10x6/uL (4.20-6.10); RDW 13.9 % (11.5-14.5)
[2017-07-17 06:22] LABS: PLATELET COUNT 96 10x3/uL (130-400); WBC 16.3 10x3/uL (4.8-10.8)
[2017-07-17 06:25] LABS: ALBUMIN 2.6 g/dL (3.4-5.0); BILIRUBIN - TOTAL 1.01 mg/dL (0.2-1.3); CARBON DIOXIDE 17.8 mmol/L (21.0-32.0); CREATININE - SERUM 1.4 mg/dL (0.6-1.3); POTASSIUM - SERUM 4.8 mmol/L (3.5-5.1); PROTEIN - SERUM 5.2 g/dL (6.4-8.2)
--- NOTE | 2017-07-17 06:26 | NUR ---
CHECKED BS AT 93. NO INSULIN REQUIRED PER SLIDING SCALE. HELD [employer] DUE TO NPO STATUS FOR CT SCAN OF ABD TODAY.
[2017-07-17 06:52] LABS: PLATELET ESTIMATE DECREASED
--- NOTE | 2017-07-17 06:52 | NUR ---
TOOK A SHOWER. ADMIN 8 UNITS HUMULIN R FOR BS 170. NO OTHER NEEDS VOICED.
--- NOTE | 2017-07-17 06:53 | NUR ---
REPOSITIONED UP IN BED. HELD [employer] FOR NPO ORDER FOR CT SCAN TODAY.
--- NOTE | 2017-07-17 07:20 | NUR ---
ASSESSMENT DONE. DENIES NEEDS.
--- NOTE | 2017-07-17 07:36 | NUR ---
BILATERAL SCD'S ARE PLACED ON PATIENT AND IN USE CORRECTLY.
--- NOTE | 2017-07-17 10:22 | NUR ---
PT AT BS. COY INTACT. WILL CONT. PLAN OF CARE.
--- NOTE | 2017-07-17 17:43 | NUR ---
Patient Name: FAITH MONTANO Admission Status: ER Accout number: [id number] Admission Date: 07-16-2017 : 1930 Admission Diagnosis: Attending: DEMI LEE Current LOS: 1 Anticipated DC Date: Planned Disposition: [facility] Facility Primary Insurance: [employer] CHOICE PPO MCR ADVANT PLANNED EXTERNAL PROVIDER: TO BE DETERMINED BY FAMILY Discharge Planning Comments: * Is the patient Alert and Oriented? Yes 0 * How many steps to enter\\exit or inside your home? 1 0 * PCP DR. OLIVER 0 * Pharmacy [facility] OR [facility] ADMIN, MAIL ORDER 0 * Preadmission Environment [facility] Facility 0 * Facility Name [facility] 0 * ADLs Partial Dependent 0 * Partial ADLs (Assistance needed) Ambulation Bathing Medication Management Transfers 0 * Equipment Glucometer Walker 0 * [facility] * List name and contact numbers for known caregivers / representatives who currently or will assist patient after discharge: DOROTEO MONTANO, SPOUSE, 0 * Community resources currently utilized None 0 * Please name any agencies selected above. NONE 0 * Additional services required to return to the preadmission environment? No 0 * Can the patient safely return to the preadmission environment? Yes 0 * Has this patient been hospitalized within the prior 30 days at any hospital? Yes 0 CM MET WITH PT AND SPOUSE IN ROOM TO DISCUSS DISCHARGE PLANNING AND NEEDS. PT SLEEPING, PT'S SPOUSE REPORTS PT WAS LIVING AT HOME INDEPENDENTLY WITH HER UNTIL GETTING SICK LAST MONTH AND WENT TO [facility] FOR REHAB SERVICES. PT WAS SENT HERE FOR "ABNORMAL BLOOD SAMPLE." PT HAS GLUCOMETER AND WALKER AT HOME WITH NO MEDICAL EQUIPMENT PROVIDER PREFERENCE; IF THEY CAN, THEY GET NEEDED EQUIPMENT FOR HOME USE FROM [facility] CLOS[facility]. PT HAD NO OUTSIDE SERVICES ASSISTING IN THE HOME PRIOR TO ADMISSION TO [facility]. CM DISCUSSED AVAILABILITY OF HOME HEALTH, REHAB SERVICES AND MEDICAL EQUIPMENT. PT'S SPOUSE REPORTS PT WILL HAVE TO GO BACK TO [facility] FOR CONTINUED REHAB, SHE IS NOT GOING TO PAY FOR A BED HOLD AT [facility], IS CONSIDERING [facility] BUT WANTS TO VISIT AND WILL LET CM KNOW IF SHE WANTS REFERRAL TO THERE FOR PT'S REHAB. RESIDENTIAL FACILITY CHOICE LETTER PROVIDED. IMPORTANT MESSAGE FROM MEDICARE PROVIDED AND EXPLAINED. CM WAITING PT'S SPOUSE TO DECIDE ON WHAT RESIDENTIAL FACILITY TO SEND REFERRAL TO FOR CONTINUED REHAB SERVICES AT DISCHARGE. Cotton Picking Machine Operator: Brian Templeton
--- NOTE | 2017-07-17 18:04 | NUR ---
AT SIDE. WITHOUT CHANGES OR DISTRESS NOTED AT THIS TIME. DENIES NEEDS.
--- NOTE | 2017-07-17 19:35 | NUR ---
RESTING QUIETLY. OPENS EYES TO VERBAL STIMULI. RT UPPER ARM MIDLINE IV INTACT WITH NS INFUSING AT 150ML/HR. TELEMETRY SHOWS 69 SR. CESPEDES INTACT/PATENT. HIS STATED SHE IS LEAVING FOR THE NIGHT. LEFT DOOR OPEN TO MONITOR CLOSELY.
--- NOTE | 2017-07-18 00:30 | NUR ---
STATED HE WAS COLD. COVERED HIM WITH A WARM BLANKET. HAD USED HIS CALL LIGHT.
[2017-07-18 02:33] VITALS: BP 120/60
--- NOTE | 2017-07-18 04:00 | NUR ---
RESTING QUIETLY ON RIGHT SIDE. NO SIGNS OR SYMPTOMS OF PAIN OR DISCOMFORT. CALL LIGHT IN HIS LEFT HAND.
[2017-07-18 07:07] VITALS: BP 163/66
--- NOTE | 2017-07-18 07:30 | NUR ---
ASSESSMENT COMPLETED. TELEMEMERTY SHOWS SB 58. 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 RIGHT SIDED WEAKNESS. CESPEDES CATH TO BEDSIDE GRAVITY BAG. RIGHT AC WITH NS AT 150. STAGE 2 TO RIGHT BUCCOCK WITH BANDAGE INTACT. AT BEDSIDE. SR UP WITH CALL LIGHT IN REACH
[2017-07-18 08:00] VITALS: BP 126/59
--- NOTE | 2017-07-18 09:49 | NUR ---
UP IN CHAIR WITH CALL LIGHT IN REACH. IV PATENT. WILL MONITOR NEEDS.
--- NOTE | 2017-07-18 10:15 | NUR ---
UP IN BEDSIDE CHAIR PER PT. CALL LIGHT IN REACH
[2017-07-18 12:00] VITALS: BP 126/59
--- NOTE | 2017-07-18 13:42 | NUR ---
WOUND CARE CONSULT: RECENT MEPILEX SACRUM REMOVED. STAGE 2 SEEN TO RIGHT BUTTOCK WITH SMALL 0.5 CM X 0.5 CM OPEN AREA TO BOTTOM OF BUTTOCK SEEN. NO DRAINAGE. THE REST OF THE RIGHT BUTTOCK CHEECK IS RED, NO SKIN BREAKAGE. ENTIRE COCCYX IS COVERED WITH MEPILEX AND DATED. ENCOURAGED TO TURN EVERY TWO HOURS. WILL FOLLOW.
--- NOTE | 2017-07-18 14:34 | NUR ---
RE POSITION FOR COMFORT. DENIES ANY NEEDS. WILL MONITOR
[2017-07-18 16:00] VITALS: BP 156/72
--- NOTE | 2017-07-18 19:41 | NUR ---
ASSESSMENTS COMPLETED. OPENS EYES WHEN SPOKEN TO, STATED "NO" TO ANY NEEDS OR DISCOMFORTS. IV IN R UA WITH NS INFUSING AT 75ML/HR. TELEMETRY SHOWS 71 SR. CESPEDES INTACT/PATENT.
[2017-07-18 20:00] VITALS: BP 138/54
--- NOTE | 2017-07-18 22:25 | NUR ---
ADMIN TYLENOL 650MG PO WITH APPLESAUCE AND SIPS OF THICKEN WATER FOR C/O "PAIN". CORPORATE QUALITY ASSURANCE MANAGER ASSISTED WITH REPOSITIONING HIM UP IN BED TO RIGHT SIDE WITH PILLOW TO BACK.
--- NOTE | 2017-07-19 01:30 | NUR ---
AUTOMOTIVE DETAILER LIGHT. STATED "I AM COLD". COVERED HIM WITH A WARM BLANKET FROM [employer] WARMER.
[2017-07-19 04:00] VITALS: BP 139/68
--- NOTE | 2017-07-19 06:00 | NUR ---
NUMERICAL CONTROL LATHE OPERATOR STATING HAVING DIFFICULT TIME DRAWING HIS BLOOD. THREE TECH'S HAD TRIED.
[2017-07-19 06:44] LABS: BASOPHILS 0 % (0-2); EOSINOPHILS 0.1 % (0-7); HEMATOCRIT 36.9 % (42.0-54.0); IMMATURE GRANULOCYTES 0.7 % (0-5); LYMPHOCYTES 10.3 % (15-50); MCH 29.2 pg (26.0-34.0); MCHC 35.2 g/dL (31.0-37.0); MCV 82.9 fL (80.0-100.0); MEAN PLATELET VOLUME 10.8 fL (7.4-10.4); MONOCYTES 6.1 % (2-11); NEUTROPHILS 82.8 % (40-80); RBC 4.45 10x6/uL (4.20-6.10); RDW 13.9 % (11.5-14.5); WBC 11.2 10x3/uL (4.8-10.8)
[2017-07-19 06:45] LABS: PLATELET COUNT 53 10x3/uL (130-400)
[2017-07-19 06:56] LABS: ANION GAP 12.9 mmol/L (8-16); CALCIUM 8.3 mg/dL (8.5-10.1); CARBON DIOXIDE 17.2 mmol/L (21.0-32.0); CREATININE - SERUM 1.1 mg/dL (0.6-1.3); POTASSIUM - SERUM 4.1 mmol/L (3.5-5.1)
--- NOTE | 2017-07-19 09:25 | NUR ---
ASSESSMENT DONE. DENIES NEEDS.
--- NOTE | 2017-07-19 10:00 | NUR ---
UP TO CHAIR WITH CALL LIGHT IN REACH. WILL CONT. PLAN OF CARE.
[2017-07-19 12:00] VITALS: BP 143/68
--- NOTE | 2017-07-19 13:45 | NUR ---
Nutrition Follow Up: Pt was asleep at the time of RD visit. Spoke with pt's who reported that pt is eating "pretty good." She said that he hates the puree diet and thickened liquids. Pt is eating 28% meal avg on a Renal ADA pureed diet with honey thick liquids. Meds and labs reviewed. No BM since admit. Rec changing diet to ADA pureed with honey thick liquids to encourage po intake. Rec consider an appetite stimulant. Will continue to send selective menus and honor food preferences within diet ordered. RD following.
--- NOTE | 2017-07-19 16:34 | NUR ---
Patient Name: FAITH MONTANO Encounter No: [id number] : 1930 Primary Insurance: [employer] CHOICE PPO MCR ADVANT Anticipated DC Date: 07-22-2017 Planned Disposition: Inpatient Rehab External Planned Provider: [facility] INPATIENT REHAB DCP follow-up note: CM SPOKE TO PHYSICAL THERAPIST WHO RECOMMENDED INPATIENT REHAB TO PT. CM MET WITH PT AND SPOUSE IN ROOM, REQUESTED EVALUATION FOR INPATIENT REHAB AT [facility]. CM DISCUSSED LOCATIONS FOR INPATIENT IN [place], SPOUSE WOULD LIKE [place] [facility]ALUATION. CM DISCUSSED SECONDARY PLAN OF PENITENTIARY, SPOUSE HAS STILL NOT VISITED ANY FACILITIES BUT WILL CONSIDER [facility] IF NECESSARY; CHOICE SIGNED. CM SPOKE TO MIHAI OF [facility] INPATIENT REHAB WHO REPORTS PT WILL BE SCREENED FOR REHAB AND SUBMITTED TO INSURANCE IF APPROPRIATE FOR AUTH / DENIAL. CM WAITING INPATIENT REHAB PRESCREENING AND INSURANCE AUTH / DENIAL. Brian Templeton, CASE MANAGEMENT
--- NOTE | 2017-07-19 16:57 | NUR ---
WITHOUT CHANGES OR DISTRESS NOTED AT THIS TIME. AT SIDE.
[2017-07-19 17:30] LABS: BASOPHILS 0.1 % (0-2); EOSINOPHILS 0.3 % (0-7); HEMATOCRIT 38.3 % (42.0-54.0); HEMOGLOBIN 13.5 g/dL (13.5-17.5); IMMATURE GRANULOCYTES 0.7 % (0-5); LYMPHOCYTES 12.9 % (15-50); MCH 29.6 pg (26.0-34.0); MCHC 35.2 g/dL (31.0-37.0); MONOCYTES 5.7 % (2-11); NEUTROPHILS 80.3 % (40-80); PLATELET COUNT 63 10x3/uL (130-400); RBC 4.56 10x6/uL (4.20-6.10); RDW 13.9 % (11.5-14.5)
[2017-07-19 17:34] LABS: WBC 16.5 10x3/uL (4.8-10.8)
[2017-07-19 17:37] LABS: APTT 22.9 SECONDS (22.8-39.4); INR 1.14 (0.85-1.17); PROTIME 14.4 SECONDS (11.6-15.0)
[2017-07-19 17:54] VITALS: BP 144/67
[2017-07-19 20:00] VITALS: BP 127/60
--- NOTE | 2017-07-19 23:17 | NUR ---
INITIAL ROUNDS COMPLETED AT 1920. PT RSTING WITH EYES CLOSED. RESP EVEN AND REGULAR. ASSESSMENT COMPLETEDA T 2014 HRS. VSS. SR PER CM HR 65. PT WAINWRIGHT AND BLIND IN L EYE. PT LETHARGIC. OPENS EYES TO VERBAL STIMULI, ANSWERS QUESTIONS THE FALLS BACK TO SLEEP. IV TO R AC MIDLINE WITH NS AT 75CC/HR. CESPEDES DRAINING YELLOW URINE. SCD'S REMOVED AND SKIN INSPECTED. NO BREAKDOWN NOTED. R SIDE SLIGHTLY WEAKER THAN L. LUNGS DIMINISHED IN BASES BILAT. DRESSING TO R BUTTOCKS CLEAN,DRY AND INTACT. PM FSBS 180. NO COVERAGE PT NOT TAKING IN NOURISHMENT. PT CURRENTLY RESTING WITH EYES CLOSED. RESP EVEN AND REGULAR. SR UP X2, CALL LIGHT WITHIN REACH.
--- NOTE | 2017-07-19 23:45 | NUR ---
TYLENOL 650 MG PO GINVE FOR C/O KEBEDE AND GENERALIZED DISCOMFORT. PT PLACED IN HIGH FOWLERS WITH PILLS GIVEN 1 AT AT TIME WITH HONEY-THICK LIQUIDS. PT SWALLOWED PILLS WITHOUT DIFFICULTY. REPOSITIONED IN BED FOR COMFORT. WILL CONTINUE TO MONITOR. SR UP X2, CALL LIGHT WITHIN REACH AND BED ALARM ON.
[2017-07-20] VITALS: BP 157/68
--- NOTE | 2017-07-20 02:10 | NUR ---
PT RESTING WITH EYES CLOSED. RESP EVEN AND REGULAR. SR UP X2, CALL LIGHT WITHIN REACH AND BED ALARM ON.
[2017-07-20 04:00] VITALS: BP 166/79
--- NOTE | 2017-07-20 04:45 | NUR ---
REPOSITIONED IN BED FOR COMFORT. PT DENIES ANY DISCOMFORT. NECTAR THICK FLUIDS GIVEN. PT PLACED IN HIGH FOWLERS AND SWALLOWED WITH SMALL SIP. NO COKING NOTED. WILL CONTINUE TO MONITOR.
[2017-07-20 06:07] LABS: BASOPHILS 0 % (0-2); EOSINOPHILS 0.4 % (0-7); HEMATOCRIT 36.9 % (42.0-54.0); HEMOGLOBIN 13.2 g/dL (13.5-17.5); IMMATURE GRANULOCYTES 0.7 % (0-5); LYMPHOCYTES 15.3 % (15-50); MCH 29.3 pg (26.0-34.0); MCHC 35.8 g/dL (31.0-37.0); MEAN PLATELET VOLUME 10.7 fL (7.4-10.4); MONOCYTES 5.7 % (2-11); NEUTROPHILS 77.9 % (40-80); PLATELET COUNT 53 10x3/uL (130-400); RDW 13.9 % (11.5-14.5); WBC 14.3 10x3/uL (4.8-10.8)
--- NOTE | 2017-07-20 06:19 | NUR ---
VSS THROUGHOUT NIGHT. SR PER CM. PT TURNED FREQ DURING SHIFT. PT STATED TYLENOL HELPED KEBEDE. AT BEDSIDE THIS AM. NEEDS MET; WILL CONTINUE TO MONITOR.
[2017-07-20 06:25] LABS: CALC OSMOLALITY 279 mosm/kg (275-300); CALCIUM 7.8 mg/dL (8.5-10.1); CARBON DIOXIDE 16.3 mmol/L (21.0-32.0); CHLORIDE - SERUM 111 mmol/L (98-107); GLUCOSE 157 mg/dL (74-106); POTASSIUM - SERUM 3.8 mmol/L (3.5-5.1); SODIUM 135 mmol/L (136-145); UREA NITROGEN 31 mg/dL (7-18); eGFR NON AFRICAN AMERICAN 75 mL/min (90-120)
--- NOTE | 2017-07-20 07:34 | NUR ---
PT SITTING UP IN BED SLEEPING NO S/S DISTRESS NOTED RR ARE EVEN AND UNLABORED WILL CONT TO MONITOR
[2017-07-20 08:10] VITALS: BP 148/70
--- NOTE | 2017-07-20 10:53 | NUR ---
PT UP TO CHAIR WITH PT
[2017-07-20 12:32] VITALS: BP 109/50
[2017-07-20 13:20] LABS: PLATELET ESTIMATE DECREASED
--- NOTE | 2017-07-20 13:22 | NUR ---
PT WAS GIVEN FULL BED BATH AND LINEN CHANGE PT TOLERATED WELL
[2017-07-20 15:39] VITALS: BP 142/77
--- NOTE | 2017-07-20 19:56 | NUR ---
INITIAL ROUNDS COMMPETEDA T 1940 HRS. PT RESTING WITH EYES CLOSED. RESP EVEN AND REGULAR. ASSESSMETN COMPLETED AT 1950 HRS. SR PER CM HR 83. IV TO RAC MIDLINE NS AT 75CC/HR. IV PATENT. L EYE BLIND. PT GRINDSTONE. PT LETHARGIC. R SIDE SLIGHLY WEAKER THAN L. MEPLILEX DRESSING TO BUTTOCKS CLEAN, DYR AND INTACT. SCDS IN USE. REMOVED AND SKIN INSPECTED. NO BREAKDOWN NOTED. PT PLACD ON BED AWAD PER REQUEST. WILL CONTINUE TO MONITOR. SR UP X2, CALL LIGHT WITHIN REACH.
[2017-07-20 20:32] VITALS: BP 152/66
--- NOTE | 2017-07-20 23:06 | NUR ---
PT INCONTINENT OF STOOL X2. BOTH BM'S SOLID. PT STATES HE FEELS MUCH IMPROVED. WILL CONTINUE TO MONITOR. SR UP X2, CALL LIGHT WITHIN REACH AND BED ALARM ON.
--- NOTE | 2017-07-21 00:51 | NUR ---
PT INCONTINENT OF A SMALL AMOUNAT OF FORMED STOOL. INCONTINENT CARE DONE. PT REPOSITIONED IN BED FOR COMFORT. WILL CONTINUE TO MONITOR.
[2017-07-21 01:18] VITALS: BP 112/93
--- NOTE | 2017-07-21 02:19 | NUR ---
PT REPOSITIONED IN BED FOR COMFORT. APPLE JUICE WITH THICKIT GIVEN PER REQUEST. WILL CONTINUE TO MONITOR. CALL LIGHT WITHIN REACH.
--- NOTE | 2017-07-21 04:23 | NUR ---
PT REPOSITIONED IN BED FOR COMFORT. WILL CONTINUE TO MONITOR.
[2017-07-21 05:26] LABS: BASOPHILS 0 % (0-2); EOSINOPHILS 0.2 % (0-7); HEMATOCRIT 36.1 % (42.0-54.0); HEMOGLOBIN 12.9 g/dL (13.5-17.5); IMMATURE GRANULOCYTES 0.8 % (0-5); LYMPHOCYTES 9.7 % (15-50); MCH 29.1 pg (26.0-34.0); MCHC 35.7 g/dL (31.0-37.0); MCV 81.5 fL (80.0-100.0); MEAN PLATELET VOLUME 10.7 fL (7.4-10.4); MONOCYTES 4.7 % (2-11); NEUTROPHILS 84.6 % (40-80); PLATELET COUNT 54 10x3/uL (130-400); RBC 4.43 10x6/uL (4.20-6.10); RDW 13.9 % (11.5-14.5); WBC 12.6 10x3/uL (4.8-10.8)
[2017-07-21 05:37] LABS: CALC OSMOLALITY 275 mosm/kg (275-300); CALCIUM 7.8 mg/dL (8.5-10.1); CARBON DIOXIDE 16.8 mmol/L (21.0-32.0); CHLORIDE - SERUM 109 mmol/L (98-107); CREATININE - SERUM 0.9 mg/dL (0.6-1.3); GLUCOSE 143 mg/dL (74-106); MAGNESIUM - SERUM 1.7 mg/dL (1.8-2.4); PHOSPHOROUS 1.9 mg/dL (2.5-4.9); POTASSIUM - SERUM 3.6 mmol/L (3.5-5.1); SODIUM 135 mmol/L (136-145); eGFR NON AFRICAN AMERICAN 85 mL/min (90-120)
[2017-07-21 05:38] LABS: UREA NITROGEN 23 mg/dL (7-18)
[2017-07-21 05:55] VITALS: BP 143/61
--- NOTE | 2017-07-21 06:18 | NUR ---
VSS THROUGHOUT NIGHT. PT HAD BM X3. DENIES ANY ABD PAIN. ORAL CARE DONE. PT TURNED FREQ DURING SHIFT. NEEDS MET; WILL CONTINUE TO MONITOR.
--- NOTE | 2017-07-21 07:15 | NUR ---
RECIEVED REPORT. ASSUMED CARE OF PATIENT. IV FLUIDS INFUSING ORDERED. AT BEDSIDE. NO DISTRESS. CALL LIGHT WITHIN REACH.
[2017-07-21 08:05] VITALS: BP 147/58
[2017-07-21 11:45] VITALS: BP 114/63
--- NOTE | 2017-07-21 11:51 | NUR ---
FSBS 206. 8 UNITS OF HUMALOG ADMINISTERED PER SLIDING SCALE. NO DISTRESS.
--- NOTE | 2017-07-21 11:51 | NUR ---
PATIENT SITTING UP TO CHAIR AT BEDSIDE AT THIS TIME.
[2017-07-21 15:09] VITALS: BP 139/65
--- NOTE | 2017-07-21 17:01 | NUR ---
FSBS 186. 4 UNITS HUMALOG ADMINISTERED PER SLIDING SCALE.
--- NOTE | 2017-07-21 19:28 | NUR ---
INITIAL ROUNDS COMPLETED. PT DENIES ANY DISCOMFORT. WILL CONTINUE TO MONITOR.
[2017-07-21 20:35] VITALS: BP 153/67
--- NOTE | 2017-07-21 22:22 | NUR ---
PM FSBS 148. NO COVERAGE NEEDED. PT INCONTINENT OF STOOL. INCONTINENT CARE DONE. WILL CONTINUE TO MONITOR.
--- NOTE | 2017-07-21 23:56 | NUR ---
PT RESTING WITH EYES CLOSED. RESP EVEN AND REGULAR. SR UP X2, CALL LIGHT WITHIN REACH..
[2017-07-22 00:08] VITALS: BP 144/66
--- NOTE | 2017-07-22 02:00 | NUR ---
PT HAS C/O BACK PAIN. PT REPOSITIONED IN BED FOR COMFORT. TYLENOL 650 MG PO GIVEN. PT PLACED IN HIGH FOWLERS AND MEDS GIVEN WITH APPLE SAUCE. PT TOLERATED WELL. WILL CONTINUE TO MONITOR.
[2017-07-22 04:37] VITALS: BP 139/68
--- NOTE | 2017-07-22 04:42 | NUR ---
PT RESTING WITH EYES CLOSED. RESP EVEN AND REGULAR. SR UP X2, CALL LIGHT WITHIN REACH.
[2017-07-22 05:56] LABS: BASOPHILS 0.1 % (0-2); EOSINOPHILS 0.1 % (0-7); HEMATOCRIT 32.9 % (42.0-54.0); IMMATURE GRANULOCYTES 1.1 % (0-5); LYMPHOCYTES 10.6 % (15-50); MCH 29.6 pg (26.0-34.0); MCHC 36.5 g/dL (31.0-37.0); MEAN PLATELET VOLUME 9.9 fL (7.4-10.4); MONOCYTES 4.1 % (2-11); PLATELET COUNT 50 10x3/uL (130-400); RBC 4.06 10x6/uL (4.20-6.10); RDW 13.8 % (11.5-14.5); WBC 12.1 10x3/uL (4.8-10.8)
[2017-07-22 06:20] LABS: CALC OSMOLALITY 283 mosm/kg (275-300); CARBON DIOXIDE 16.8 mmol/L (21.0-32.0); CHLORIDE - SERUM 112 mmol/L (98-107); CREATININE - SERUM 0.9 mg/dL (0.6-1.3); GLUCOSE 131 mg/dL (74-106); POTASSIUM - SERUM 3.4 mmol/L (3.5-5.1); SODIUM 140 mmol/L (136-145); UREA NITROGEN 22 mg/dL (7-18); eGFR NON AFRICAN AMERICAN 85 mL/min (90-120)
--- NOTE | 2017-07-22 06:30 | NUR ---
VSS THROUGHUT NIGHT. SR PER CM. TYLENOL AND REPOSTIONING ALLEVIATED BACK PAIN. PT TURNED FREQ DURING SHIFT. BED BATH AND LINEN CHANGE COMPLETED. AM FSBS 118. NO COVERAGE NEEDED. NEEDS MET; WILL CONTINUE TO MONITOR.
[2017-07-22 07:32] LABS: APTT 22.7 SECONDS (22.8-39.4); INR 1.22 (0.85-1.17); PROTIME 15.3 SECONDS (11.6-15.0)
--- NOTE | 2017-07-22 07:56 | NUR ---
RESTS WITH EYES CLOSED. IV PATENT. AT BS. WILL CONT. PLAN OF CARE.
[2017-07-22 08:00] VITALS: BP 165/79
--- NOTE | 2017-07-22 08:04 | NUR ---
ASSESSMENT DONE. DENIES NEEDS
[2017-07-22 12:00] VITALS: BP 144/63
[2017-07-22 16:00] VITALS: BP 142/70
--- NOTE | 2017-07-22 16:55 | NUR ---
WITHOUT CHANGES OR DISTRESS NOTED AT THIS TIME. DENIES NEEDS.
[2017-07-22 19:00] VITALS: BP 132/63
--- NOTE | 2017-07-22 19:07 | NUR ---
OT NOTE: PT COMPLETED LUE AROM EXS AND RUE AAROM EXS FOR INCREASED FUNCTIONAL ROM AND AX TOLERANCE. PT COMPLETED SIMPLE HYGIENE TASK WITH SET UP. THANK YOU, MARYLIN LANGFORD
--- NOTE | 2017-07-22 20:37 | NUR ---
BS 99, NO COVERAGE NEEDED PER S/S. WILL CONT TO MONITOR.
[2017-07-23] VITALS: BP 144/70
--- NOTE | 2017-07-23 01:57 | NUR ---
RESTING WITH EYES CLOSED. RESPERATIONS EVEN, NO S/S DISTRESS NOTED.
--- NOTE | 2017-07-23 03:46 | NUR ---
TYLENOL 650 MG GIVEN AT PT REQUEST FOR C/O PAIN.
[2017-07-23 04:32] VITALS: BP 128/51
[2017-07-23 05:38] LABS: BASOPHILS 0.1 % (0-2); EOSINOPHILS 0 % (0-7); HEMOGLOBIN 11.7 g/dL (13.5-17.5); IMMATURE GRANULOCYTES 1.4 % (0-5); LYMPHOCYTES 7.9 % (15-50); MCH 29.1 pg (26.0-34.0); MCHC 35.5 g/dL (31.0-37.0); MCV 82.1 fL (80.0-100.0); MEAN PLATELET VOLUME 10.1 fL (7.4-10.4); MONOCYTES 3.7 % (2-11); NEUTROPHILS 86.9 % (40-80); RBC 4.02 10x6/uL (4.20-6.10); WBC 11.1 10x3/uL (4.8-10.8)
[2017-07-23 05:40] LABS: PLATELET COUNT 62 10x3/uL (130-400)
[2017-07-23 06:03] LABS: ANION GAP 10.6 mmol/L (8-16); CALCIUM 7.6 mg/dL (8.5-10.1); CREATININE - SERUM 1.1 mg/dL (0.6-1.3); POTASSIUM - SERUM 3.5 mmol/L (3.5-5.1)
[2017-07-23 06:10] LABS: CARBON DIOXIDE 23.9 mmol/L (21.0-32.0)
[2017-07-23 08:00] VITALS: BP 136/51
--- NOTE | 2017-07-23 08:11 | NUR ---
ASSESSMENT DONE. DENIES NEEDS. AT SIDE.
--- NOTE | 2017-07-23 09:57 | NUR ---
JAYNA COLON. FAMILY AT BS. CALL LIGHT IN REACH. WILL CONT. PLAN OF CARE.
--- NOTE | 2017-07-23 14:18 | NUR ---
Nutrition Follow Up: Pt is eating 48% meal avg on a diabetic diet. Noted pt was previously on a diabetic pureed with honey thick liquids. Spoke with AUTOMOBILE MECHANIC who stated that he would evaluate pt today. +BM 07/22/17. Labs reviewed - Glucose elevated. Meds noted including Decadron. Rec continue current diet per AUTOMOBILE MECHANIC recs. RD following.
[2017-07-23 16:00] VITALS: BP 145/66
--- NOTE | 2017-07-23 16:54 | NUR ---
Rehab Note- Acute Rehab Prescreen order received. The patient has [employer] insurance and will require a PreAuth. Started PreAuth process yesterday afternoon and spoke with Cyndi Shankar with [employer] yesterday afternoon. Spoke with the patient and ho\is this morning. Faxed updated clinicals and therapy notes to [facility] this morning. Received denial for acute rehab stay this afternoon. Made copies of the denial letter and provided the patient's with the denial letter and noted the number to call for appeals process. Provided AIMEE Berry with a copy of the denial letter. Thank you for this referral! Peer to peer can be set up by [phone] within the next 5 calendar days. Jocelyne Marie RN Clinical Liaison, [facility] Rehab
--- NOTE | 2017-07-23 17:18 | NUR ---
Patient Name: FAITH MONTANO Admission Status: ER Accout number: [id number] Admission Date: 07-16-2017 : 1930 Admission Diagnosis: Attending: DEMI LEE Current LOS: 7 Anticipated DC Date: 07-22-2017 Planned Disposition: Inpatient Rehab Primary Insurance: [employer] CHOICE PPO MCR ADVANT PLANNED EXTERNAL PROVIDER: [facility] INPATIENT REHAB Discharge Planning Comments: CM SPOKE TO JESSICA OF [facility] INPATIENT REHAB, INSURANCE HAS DENIED PT FOR INPATIENT REHAB. JESSICA WILL PROVIDE PT WITH COPY OF DENIAL AND DISCUSS APPEAL RIGHTS. CM PLACED COPY OF INPATIENT DENIAL INSIDE FRONT OF PT'S CHART IN EVENT PHYSICIAN WILL REVIEW AND CONSIDER CONDUCTING PEER TO PEER FOR RECONSIDERATION. CM SCANNED COPY INTO CHART. CM WAITING ON FAMILY TO DECIDE IF THEY WILL APPEAL DETERMINATION, IF PHYSICIAN WILL DO PEER TO PEER REVIEW; IF NOT APPEAL WILL BE DONE, CM TO FAX REFERRAL TO [facility] FOR [facility] REHAB CONSIDERATION. Equipment Engineering Technician: Brian Templeton
--- NOTE | 2017-07-23 18:07 | NUR ---
WITHOUT CHANGES OR DISTRESS NOTED AT THIS TIME. DENIES NEEDS.
--- NOTE | 2017-07-23 19:28 | NUR ---
PT LAYING IN BED. PT C/O PAIN. TYLENOL GIVEN. PT LAYING ON RIGHT SIDE WITH PILLOWS BEHIND BACK. FAMILY IN ROOM. NO S/S OF DISTRESS. BED LOW AND CALL LIGHT IN REACH. WILL CPOC
--- NOTE | 2017-07-23 19:47 | NUR ---
OT NOTE: PT COMPLETED ORAL HYGIENE TASK WITH SET UP. PT C/O OF ABDOMINAL PAIN (05/06). NURSING STAFF NOTIFIED. THANK YOU, MARYLIN LANGFORD
[2017-07-23 21:26] VITALS: BP 136/76
--- NOTE | 2017-07-24 03:49 | NUR ---
PT C/O PAIN. REPOSITIONED. GIVEN TYLENOL. PT HAS FAMILY IN ROOM. NO S/S OF DISTRESS. PT DENIES ANY OTHER NEEDS. WILL CPOC
--- NOTE | 2017-07-24 08:10 | NUR ---
ASSESSMENT DONE. AT SIDE.
[2017-07-24 08:16] VITALS: BP 170/68
--- NOTE | 2017-07-24 09:30 | NUR ---
RESTS IN BED WITH CALL LIGHT IN REACH. AT BS. WILL CONT. PLAN OF CARE.
[2017-07-24 09:43] LABS: BASOPHILS 0 % (0-2); EOSINOPHILS 0.2 % (0-7); HEMATOCRIT 33.6 % (42.0-54.0); HEMOGLOBIN 12.1 g/dL (13.5-17.5); IMMATURE GRANULOCYTES 1.3 % (0-5); LYMPHOCYTES 12.3 % (15-50); MCH 29.5 pg (26.0-34.0); MEAN PLATELET VOLUME 9.9 fL (7.4-10.4); MONOCYTES 5.2 % (2-11); PLATELET COUNT 61 10x3/uL (130-400); RDW 13.9 % (11.5-14.5); WBC 12.7 10x3/uL (4.8-10.8)
--- NOTE | 2017-07-24 10:28 | NUR ---
Late entry 0915 AIMEE spoke with patient's at the bedside. She is anxious for him to start rehabilatative services. She understands he was declined for acute rehab by insurer. The speech therapist spoke with her this regarding the differences in acute and skilled rehab. She wants to proceed with skilled rehab. She expressed concerns with [facility] and desires [facility] and Rehab. Patient choice form obtained and signature received. TC to [facility]. AIMEE spoke with Dasia. Faxed referral for review.
[2017-07-24 11:58] VITALS: BP 130/58
--- NOTE | 2017-07-24 13:13 | NUR ---
TC TO [facility] THIS EARLY AM, CM SPOKE WITH ROJELIO AT [phone]. FAXED CLINICAL FOR REVIEW TO [phone]. WHILE AWAITING DECISION, MAYLIN, CLINICAL LIAISON, VISITED. SHE STATED [facility] IS NOT CONTRACTED WITH [employer], THE PATIENT'S INSURER. SHE SPOKE WITH THE . THE 'S SECOND CHOICE IS [facility] AND THIRD CHOICE IS THE [facility]. CM REVISITED THE AND CONFIRMED THE CHOICES. TC TO [facility] [phone]. FAXED CLINICAL FOR REVIEW TO ROHAN AT [phone]. UPDATED PRIMARY NURSE, RICARDO. AWAIT RESPONSE.
--- NOTE | 2017-07-24 14:39 | NUR ---
OT NOTE: PERFORMED GROSS/FINE MOTOR EXS; VISUAL NEGLECT ACT; BED MOB WITH MOD ASSIST
--- NOTE | 2017-07-24 16:31 | NUR ---
TC TO [facility]. SPOKE WITH ROHAN. SHE JUST RECEIVED THE PACKET. IT HAS BEEN SCREENED BY THE BILLING DEPT AND NURSING. ADDITIONAL DAY PROGRESS NOTES REQUESTED AND FAXED. CONTINUE TO AWAIT DECISION.
[2017-07-24 17:37] VITALS: BP 150/70
--- NOTE | 2017-07-24 17:42 | NUR ---
OT NOTE: PT COMPLETED SELF FEEDING WITH MOD A. PT COMPLETED BUE GROSS MOTOR AXS FOR INCREASED I WITH ADLS. THANK YOU, LAZ LANGFORD/Gonzalez
--- NOTE | 2017-07-24 17:47 | NUR ---
WITHOUT CHANGES OR DISTRESS NOTED AT THIS TIME. AT SIDE.
--- NOTE | 2017-07-24 19:35 | NUR ---
PT ASLEEP LAYING ON RIGHT SIDE. RESPIRATIONS EVEN AND UNLABORED. HERBER HAS STRAWCOLOR URINE. PT AWOKE WITH VERBAL STIMULI. PT ASKS FOR A DRINK OF WATER. PUT HOB UP TO 45. PT COUGHING AND CHOKING. THICKENED PT DRINK AND INSRUCTED C.N.A TO DO THE SAME. PT VERBALIZED UNDERSTANDING. PT C/O 3/10 PAIN IN BACK. YELLS OUT IN PAIN WHEN LETTING HOB DOWN. PT STATES PAIN STILL IS A 3/10 BUT IS EXPRESSING A HIGHER LEVEL OF PAIN. PT HAS A RIGHT MIDLINE S/L. SCD'S ARE ON BILATERAL LOWER EXTREM. PT DENIES ANY NEEDS. NO S/S OF DISTRESS. PRAKASH MAT UNDER PT AND ACTIVE. BED LOW AND CALL LIGHT IN REACH WILL CPOC
[2017-07-24 20:48] VITALS: BP 162/74
[2017-07-25] VITALS: BP 133/64
--- NOTE | 2017-07-25 00:33 | NUR ---
PT MOANING OUT IN PAIN. TYLENOL GIVEN FOR PAIN. DILAUDID CAN NOT BE GIVEN UNTIL 0500. REPOSITIONED PT TO LEFT SIDE. PT DENIES ANY NEEDS. NO S/S OF DISTRESS. WILL CPOC
--- NOTE | 2017-07-25 02:37 | NUR ---
PT REPOSITIONED. PT STILL MOANING OUT IN PAIN. PT NOW ON RIGHT SIDE . PILLOW BETWEEN THIGHS. DENIES ANY NEEDS. NO S/S OF DISTRESS. WILL CPOC
--- NOTE | 2017-07-25 05:35 | NUR ---
PT MOANING OUT AND EXPRESSING SEVERE PAIN. STATES IT IS ONLY A 2/10. PRN HYDROMORPHONE GIVEN. PT REPOSITIONED. PT DENIES ANY OTHER NEEDS. NO S/S OF DISTRESS. WILL CPOC
[2017-07-25 06:14] LABS: BASOPHILS 0 % (0-2); EOSINOPHILS 0.1 % (0-7); HEMATOCRIT 32.4 % (42.0-54.0); HEMOGLOBIN 11.6 g/dL (13.5-17.5); IMMATURE GRANULOCYTES 1.3 % (0-5); LYMPHOCYTES 11.4 % (15-50); MCH 29.5 pg (26.0-34.0); MCHC 35.8 g/dL (31.0-37.0); MCV 82.4 fL (80.0-100.0); MEAN PLATELET VOLUME 9.2 fL (7.4-10.4); MONOCYTES 5.2 % (2-11); PLATELET COUNT 62 10x3/uL (130-400); RBC 3.93 10x6/uL (4.20-6.10); RDW 14.2 % (11.5-14.5); WBC 11.6 10x3/uL (4.8-10.8)
[2017-07-25 06:40] LABS: CALC OSMOLALITY 283 mosm/kg (275-300); CALCIUM 7.8 mg/dL (8.5-10.1); CARBON DIOXIDE 25.3 mmol/L (21.0-32.0); CHLORIDE - SERUM 106 mmol/L (98-107); GLUCOSE 123 mg/dL (74-106); PHOSPHOROUS 1.9 mg/dL (2.5-4.9); POTASSIUM - SERUM 3.3 mmol/L (3.5-5.1); SODIUM 140 mmol/L (136-145); UREA NITROGEN 23 mg/dL (7-18); eGFR NON AFRICAN AMERICAN 75 mL/min (90-120)
--- NOTE | 2017-07-25 07:30 | NUR ---
RECEIVED PT IN BED EYES CLOSED RESP UNLABORED NAD NOTED
[2017-07-25 08:06] VITALS: BP 137/61
--- NOTE | 2017-07-25 09:35 | NUR ---
RECEIVED A CALL FROM ROHAN AT [facility]. SHE STATED THAT THE WOULD ACCEPT THE PATIENT. RIGHT NOW THEY ARE WAITING ON INSURANCE AUTH. SHE WILL CALL BACK AND LET ME KNOW WHEN THE INSURANCE HAS OK'ED IT SO THAT DISCHARGE ORDERS CAN BE OBTAINED.
--- NOTE | 2017-07-25 10:23 | NUR ---
ROHAN WITH [facility] CALLED, THEY HAVE RECEIVED FINANCIAL AUTH ON THE PATIENT AND WILL TAKE HIM TODAY. WILL GET WITH MANSI JOHNS OR DR MEZA FOR ORDERS.
--- NOTE | 2017-07-25 12:12 | NUR ---
FSBS 200 HUMALOG 4 UNITS GIVEN SQ LT ARM
[2017-07-25 12:23] VITALS: BP 132/61
[2017-07-25] MEDS ORDERED: HUMALOG 30100 UNITS/ SC (13:10)
[2017-07-25] MEDS ORDERED: DECADRON4 MG PO (13:10)
--- NOTE | 2017-07-25 16:41 | NUR ---
RECEIVED ORDER TO HOLD DISCHARGE UNTIL AM
--- NOTE | 2017-07-25 16:45 | NUR ---
SPOKE WITH [facility] NOTIFIED PT'S DISCHARGE WILL BE HELD UNTIL MORNING
--- NOTE | 2017-07-25 17:04 | NUR ---
FSBS 227 HUMALOG 8 UNITS GIVEN SQ LT ARM
[2017-07-25 20:00] VITALS: BP 134/60
[2017-07-26] VITALS: BP 119/54
--- NOTE | 2017-07-26 02:29 | NUR ---
PT MOANING LOUD, C/O PAIN "ALL OVER". DILAUDID 0.5 MG PO GIVEN @ THIS TIME. REPOSITIONED IN BED. WILL CONT TO MONITOR.
[2017-07-26 04:00] VITALS: BP 131/856
[2017-07-26 05:55] LABS: BASOPHILS 0.1 % (0-2); EOSINOPHILS 0.1 % (0-7); HEMATOCRIT 33.8 % (42.0-54.0); HEMOGLOBIN 11.8 g/dL (13.5-17.5); IMMATURE GRANULOCYTES 1.3 % (0-5); LYMPHOCYTES 12.6 % (15-50); MCH 29.3 pg (26.0-34.0); MCHC 34.9 g/dL (31.0-37.0); MCV 83.9 fL (80.0-100.0); MEAN PLATELET VOLUME 9.8 fL (7.4-10.4); MONOCYTES 5.3 % (2-11); NEUTROPHILS 80.6 % (40-80); PLATELET COUNT 67 10x3/uL (130-400); RBC 4.03 10x6/uL (4.20-6.10); RDW 14.5 % (11.5-14.5); WBC 11.6 10x3/uL (4.8-10.8)
[2017-07-26 06:18] LABS: CALC OSMOLALITY 278 mosm/kg (275-300); CALCIUM 8.1 mg/dL (8.5-10.1); CARBON DIOXIDE 25.7 mmol/L (21.0-32.0); CHLORIDE - SERUM 105 mmol/L (98-107); CREATININE - SERUM 0.9 mg/dL (0.6-1.3); GLUCOSE 99 mg/dL (74-106); MAGNESIUM - SERUM 1.7 mg/dL (1.8-2.4); POTASSIUM - SERUM 3.6 mmol/L (3.5-5.1); SODIUM 138 mmol/L (136-145); UREA NITROGEN 21 mg/dL (7-18); eGFR NON AFRICAN AMERICAN 85 mL/min (90-120)
[2017-07-26 06:23] LABS: PHOSPHOROUS 2.8 mg/dL (2.5-4.9)
[2017-07-26 07:38] VITALS: BP 103/49
--- NOTE | 2017-07-26 08:03 | NUR ---
REPORT CALLED TO MARTHA SAMS AT [facility].
--- NOTE | 2017-07-26 08:48 | NUR ---
MIDLINE CATH DC'D CATH TIP INTACT. MANUAL PRESSURED APPLIED TIMES 3 MINUTES. CESPEDES CATH DC'D WITH 200 CC OF URINE. GOWN CHANGED. SMALL BM PRODUCED. JENNIFER CARE GIVEN.
--- NOTE | 2017-07-26 09:15 | NUR ---
ASSISTED PT TO WHEELCHAIR. ALL PERSONAL BELONGINGS WITH . PT DC'D TO CORRECTION PER CORRECTION STAFF.
[2017-11-13] MEDS ORDERED: GLIPIZIDE10 MG PO (14:24)
[2017-11-13] MEDS ORDERED: GLUCOTROL 5 MG T5 MG PO (14:25)
[2017-11-13] MEDS ORDERED: TIROSINT50 MCG PO (14:27)
[2017-11-22] MEDS ORDERED: COZAAR25 MG PO (11:59)
== END 2017-07-26 09:15 | DRG 682 ==
LOC: D.ER 23:56 → D.M2 07-16 07:18 → D.ICU 07-16 07:18 → D.M2 07-16 07:37
PROVIDERS: Family Medicine; General Practice; Internal Medicine Hematology & Oncology; Internal Medicine Nephrology; ADMIT Family Medicine
PROC: 0T9B70Z Drainage of Bladder with Drainage Device, Via Natural or Artificial Opening (ICD-10-PCS; 2017-07-16)
PROC: 07DR3ZX Extraction of Iliac Bone Marrow, Percutaneous Approach, Diagnostic (ICD-10-PCS; principal; 2017-07-22 10:45)
DX: N17.9 Acute kidney failure, unspecified (principal); K85.90 Acute pancreatitis without necrosis or infection, unspecified; E13.10 Other specified diabetes mellitus with ketoacidosis without coma; E43 Unspecified severe protein-calorie malnutrition; I69.951 Hemiplegia and hemiparesis following unspecified cerebrovascular disease affecting right dominant side; I10 Essential (primary) hypertension; E87.5 Hyperkalemia; R91.1 Solitary pulmonary nodule; D69.6 Thrombocytopenia, unspecified; E86.0 Dehydration; I95.9 Hypotension, unspecified; Z68.28 Body mass index [BMI] 28.0-28.9, adult; R27.8 Other lack of coordination; K59.00 Constipation, unspecified

== ENCOUNTER 2017-08-09 14:08 | Inpatient (IN) | payer MEDICARE ==
[~2017-08-09] VITALS: Ht 177.8 cm; Wt 77.8 kg
[~2017-08-09 14:08] MED LIST changes: +COZAAR100 MG PO; +HUMALOG 30100 UNITS/ SC; +SENNA LAXATIVE8.6 MG PO
[2017-08-09 14:56] LABS: BASOPHILS 0.3 % (0-2); EOSINOPHILS 0.1 % (0-7); HEMATOCRIT 40.1 % (42.0-54.0); HEMOGLOBIN 13.2 g/dL (13.5-17.5); IMMATURE GRANULOCYTES 5.4 % (0-5); LYMPHOCYTES 14.9 % (15-50); MCH 28.9 pg (26.0-34.0); MCHC 32.9 g/dL (31.0-37.0); MCV 87.7 fL (80.0-100.0); MEAN PLATELET VOLUME 9.6 fL (7.4-10.4); MONOCYTES 6.9 % (2-11); NEUTROPHILS 72.4 % (40-80); RBC 4.57 10x6/uL (4.20-6.10); RDW 14.8 % (11.5-14.5)
[2017-08-09 14:57] LABS: PLATELET COUNT 122 10x3/uL (130-400)
[2017-08-09 15:09] LABS: ANION GAP 13.7 mmol/L (8-16); BILIRUBIN - TOTAL 0.57 mg/dL (0.2-1.3); CARBON DIOXIDE 24.4 mmol/L (21.0-32.0); CREATININE - SERUM 1.4 mg/dL (0.6-1.3); POTASSIUM - SERUM 4.1 mmol/L (3.5-5.1)
[2017-08-09 16:19] LABS: APPEARANCE HAZY (CLEAR); BILIRUBIN NEGATIVE (NEGATIVE); COLOR YELLOW (YELLOW); GLUCOSE 250 mg/dL (NEGATIVE); KETONE SMALL mg/dL (NEGATIVE); NITRITE NEGATIVE (NEGATIVE); PROTEIN NEGATIVE (NEGATIVE); UROBILINOGEN NORMAL (NORMAL)
[2017-08-09 16:20] LABS: BACTERIA FEW /hpf (NONE SEEN); WHITE CELLS - URINE 0-5 /hpf (0-5); YEAST >1+ WITH HYPHAE /hpf (NONE SEEN)
--- NOTE | 2017-08-09 18:23 | NUR ---
RECEIVED RREPORT FROM ED, CESPEDES CATH PLACED TODAY.
--- NOTE | 2017-08-09 18:43 | NUR ---
184-RECEIVED VIA STRETCHER TO ROOM FROM THE ED. FAMILY AT BEDSIDE. CESPEDES CATH PATENT (PLACED TODAY) WITH SLIHTLY CLOUDY URINE. ROLLED FROM SIDE TO SIDE AND DIAPER REMOVED. STAGE 2 SEEN TO COCCYX AREA PAST CLEANING FROM STOOL. PATIENT WILL NOT TALK, MOANS. ON ROOM AIR. RIGHT THUMB/HAND SEEN WITH NS INFUSING AT 50 CC/HR. SALINE LOCK ( STATES WAS PLACED FROM LONGTERM YESTERDAY) TO LEFT WRIST. WILL ADMIT.
--- NOTE | 2017-08-09 18:53 | NUR ---
CALLED MOHAMUD AT [facility] TO FAX US A COPY OF WHEN HIS MEDS WHERE TAKEN TODAY. I GAVE HER OUR FAX NUMBER.
[2017-08-09 19:00] VITALS: BP 122/73
--- NOTE | 2017-08-09 19:38 | NUR ---
PT ASLEEP. WOKE TO VERBAL STIMULI. PT ORIENTED TO NAME ONLY. PT COUGHING WHEN DRINKING WITH HOB UP 70. PT HAS 50ML NS INFUSING TO RIGHT THUMB, LEFT WRIST IS S/L BOTH IV AREAS ARE CDI, PT BED IS LOW CALL LIGHT IN REACH. PT SHOOK HEAD NO WHEN ASKED IF HE HAS ANY NEEDS. NO S/S OF DISTRESS. WILL CPOC
--- NOTE | 2017-08-09 21:42 | NUR ---
PT BED STUCK IN UPRIGHT POSITION. CHANGED BED FOR PT TO HAVE A FUCTIONAL BED. REPOSITIONED PT. PT NOW ON RIGHT SIDE. WITH PILLOW BETWEEN LEGS. ORAL CARE DONE FOR PT DRY/HARD TONGUE. PT SEEMS COMFORTABLE. NO S/S OF DISTRESS. BED LOW AND CALL LIGHT IN REACH. WILL CPOC
[2017-08-10] VITALS (7 sets, daily range): BP systolic 102–152; BP diastolic 59–77; Ht 177.8 cm; Wt 77.8 kg
--- NOTE | 2017-08-10 01:32 | NUR ---
ORAL CARE DONE 2 TIMES, SOME OF THE TOP LAYER OF THE DRYNESS ON HIS TONGUE CAME OFF. EDUCATED PT IN ORAL CARE. PT SHOOK HEAD YES IN AGREEMENT WHEN DISCUSING DOING ORAL CARE Q2H. SPOKE WITH LABELING STRATEGIST AND SHE ALSO AGREED, SAID SHE WOULD PASS IT IN REPORT. PT REPOSITIONED TO RIGHT SIDE. HEELS ELEVAATED.PT COUGHS WHEN DRINKING. THICKEND WATER JUST IN CASE OF ASPIRATION. PT DRANK 200CC OF THICKEND WATER. PT DENIES ANY NEEDS AT THIS TIME. BED LOW AND CALL LIGHT IN REACH. WILL CPOC
[2017-08-10] MEDS ORDERED: FLOMAX0.4 MG PO (02:16)
[2017-08-10] MEDS ORDERED: CELEXA10 MG PO (02:28)
[2017-08-10] MEDS ORDERED: GAS-X80 MG PO ×2 (02:30)
[2017-08-10] MEDS ORDERED: LANTUS SOL100 UNIT/1 SC (02:33)
--- NOTE | 2017-08-10 03:20 | NUR ---
PT RESPOSITIONED. ORAL CARE DONE. PT RESTING. BEDLOW AND CALL LIGHT IN REACH. WILL CPOC
--- NOTE | 2017-08-10 06:30 | NUR ---
ORAL CARE DONE. NOURISHMENT OFFERED. PT REPOSITIONED. PT HAS NO S/S OF DISTRESS. DENIES ANY NEEDS. WILL COPC
--- NOTE | 2017-08-10 07:30 | NUR ---
REPORT RECIEVED. PT RESTING QUIETLY, RR EVEN AND UNLABORED. PT IS MOUTH BREATHING. INCONTINENT SMALL AMT STOOL. CHANGED JENNIFER PAD X2 ASSIST, PT TURNED. ASSESSMENT PERFORMED, WILL CTM.
--- NOTE | 2017-08-10 15:31 | NUR ---
FAMILY AT BEDSIDE. ELEMENT[employer] REGISTRAR CLEANED PT UP, ASSISTED ELEMENTARY SCHO[employer] REGISTRAR TO PULL PT UP IN BED AND APPLIED BARRIER CREAM. PT TURNED. RR EVEN AND UNLABORED, WILL CTM.
--- NOTE | 2017-08-10 18:35 | NUR ---
CLAMPED CESPEDES TO OBTAIN URINE SAMPLE. WILL PASS ALONG TO VENEER JOINTER RETURNER THAT URINE SAMPLE IS NEEDED. PT SOUNDS GARBLED, RR EVEN AND UNLABORED. WILL GIVE REPORT ON PT CONDITION FOR THE DAY.
--- NOTE | 2017-08-10 20:31 | NUR ---
PT RESTING IN BED. MOUTH BREATHER. VERY DRY MUCOUS MEMBRANES. ORAL CARE PROVIDED. 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 THIS EYE STAYS PARTLY OPEN. CURRENTLY BEING VISITED BY HIS C 13 CATAPULT OPERATOR AND C 13 CATAPULT OPERATOR'S . IV VANCOMYCIN NOW UP AND INFUSING TO RIGHT THUMB IV. ALSO HAS SALINE LOCKED IV TO LEFT HAND. CESPEDES PATENT TO BEDSIDE DRAIN. UA TO BE COLLECTED. SEE SHIFT ASSESSMENT. FSBS 167, GAVE LANTUS 6 UNTIS, BUT HELD HUMALOG SINCE PT IS NOT EATING VERY MUCH. WILL MONITOR CLOSELY.
[2017-08-11] VITALS: BP 140/65
--- NOTE | 2017-08-11 03:02 | NUR ---
PT RESTING IN BED. COMPLETE BED BATH GIVEN. NO DISTRESS. IVF INFUSING. CPOC.
[2017-08-11 04:03] VITALS: BP 130/64
[2017-08-11 04:46] LABS: BASOPHILS 0.3 % (0-2); EOSINOPHILS 0.2 % (0-7); HEMATOCRIT 38.1 % (42.0-54.0); HEMOGLOBIN 12.1 g/dL (13.5-17.5); IMMATURE GRANULOCYTES 7.8 % (0-5); LYMPHOCYTES 12.4 % (15-50); MCH 28.3 pg (26.0-34.0); MCHC 31.8 g/dL (31.0-37.0); MCV 89.2 fL (80.0-100.0); MEAN PLATELET VOLUME 10.4 fL (7.4-10.4); MONOCYTES 4.5 % (2-11); NEUTROPHILS 74.8 % (40-80); PLATELET COUNT 130 10x3/uL (130-400); RBC 4.27 10x6/uL (4.20-6.10); RDW 14.8 % (11.5-14.5)
[2017-08-11 04:47] LABS: WBC 10.9 10x3/uL (4.8-10.8)
[2017-08-11 05:06] LABS: CALCIUM 8.9 mg/dL (8.5-10.1); CARBON DIOXIDE 25.7 mmol/L (21.0-32.0); CREATININE - SERUM 1.3 mg/dL (0.6-1.3); MAGNESIUM - SERUM 2.1 mg/dL (1.8-2.4); PHOSPHOROUS 2.2 mg/dL (2.5-4.9)
[2017-08-11 05:08] LABS: ANION GAP 11.7 mmol/L (8-16); POTASSIUM - SERUM 3.4 mmol/L (3.5-5.1)
--- NOTE | 2017-08-11 05:08 | NUR ---
ABG DONE PER RESPIRATORY. NO ABNORMALS TO REPORT.
--- NOTE | 2017-08-11 07:30 | NUR ---
REPORT RECEIVED. PT RESTING QUIELTY, AROUSES TO VOICE. PT IS MAKING INCOMPREHENSIBLE SOUNDS WHEN ASKED A QUESTION. RR EVEN AND UNLABORED. FAMILY AT BEDSIDE. WILL CTM.
--- NOTE | 2017-08-11 07:34 | NUR ---
URINE SPECIMEN COLLECTED FROM [facility]HETER PORT AND SENT TO LAB.
--- NOTE | 2017-08-11 07:34 | NUR ---
RESPIRATORY SPECIMEN NOT COLLECTED, PT WITH NO NOTED SPUTUM AND WOULD NOT AWAKEN TO FOLLOW ANY ORDERS.
[2017-08-11 08:00] VITALS: BP 136/74
--- NOTE | 2017-08-11 08:45 | NUR ---
PLACED SCDS ON PT AND EXPLAINED THEM TO PT. SUCTION EQUIPMENT PLACED IN ROOM DUE TO PT GARBALING AT TIMES. WILL CTM.
--- NOTE | 2017-08-11 08:50 | NUR ---
ATEMPETED TO FEED PT SMALL AMT OF THICKENED APPLE JUICE WITH SPOON. PT IS TRYING TO SWALLOW, BUT IS UNABLE TO SUCCESSFULLY SWALLOW WITHOUT GARBARLING. WILL NOT GIVE PT MEDS THIS MORNING UNTIL SPEECH THERAPY COMPLETES CONSULT. WILL CTM.
[2017-08-11 12:00] VITALS: BP 160/61
--- NOTE | 2017-08-11 13:00 | NUR ---
FAMILY AT BEDSIDE. EXPLAINED TO HER RATIONALE FOR NOT FEEDING PT AT THIS TIME. VERBALIZED UNDERSTANDING. WILL CTM.
--- NOTE | 2017-08-11 13:15 | NUR ---
PT HAD 8 PVCS IN A ROW. PT IS RESTING QUIETLY, NO CHANGE IN PT STATUS. WILL CTM.
--- NOTE | 2017-08-11 15:20 | NUR ---
PT ALERT, FAMILY AT BEDSIDE. ORAL CARE PROVIDED. RR EVEN AND UNLABORED, WILL CTM.
[2017-08-11 16:00] VITALS: BP 137/67
--- NOTE | 2017-08-11 16:14 | NUR ---
DUE TO PT NOT EATING AND HAVING DIFFICULTY SWALLOWING, SPOKE TO DR. CROWE ABOUT FLUID ORDERS. SHE EXPLAINED THAT SHE WILL PUT IN ORDERS ON FLUIDS.
--- NOTE | 2017-08-11 18:22 | NUR ---
PT RESTING QUILETY, RR EVEN AND UNLABORED. WILL GIVE REPORT ON PT CONDITION FOR THE DAY
[2017-08-11 20:26] VITALS: BP 140/71
--- NOTE | 2017-08-11 21:00 | NUR ---
PT RESTING IN BED. FSBS 120, NOT EATING DUE TO FREQUENT CHOKING AND POSSIBLE APSIRATION. PENDING SWALLOW EVAL. HELD LANTUS DUE TO NOT EATING. IVF INFUSING TO RIGHT HAND. ALSO WITH PIV SALINE LOCKED TO LFA. CESPEDES WITH SEDIMENT/CLOUDY PATENT TO BEDSIDE DRAIN BAG. SEE FULL ASSESSMENT. CPOC.
--- NOTE | 2017-08-11 21:50 | NUR ---
PT AWAKE AND TRYING TO GET OUT OF BED WHICH SET OFF THE MAT ALARM. STAFF TO ROOM AND ASSISTED PT UP TO USE BEDSIDE COMMODE TO VOID. PT BACK TO BED WITH PRAKASH MAT IN PLACE. DOOR TO ROOM OPEN AND PT CLOSELY SUPERVISED.
[2017-08-12] VITALS (8 sets, daily range): BP systolic 123–159; BP diastolic 62–753
--- NOTE | 2017-08-12 03:27 | NUR ---
PT HAS BEEN TURNED AND REPOSITIONED EVERY 2 HOURS FOR COMFORT MEASURES AND TO KEEP HIM CLEAN/DRY. CESPEDES PATENT TO BEDSIDE DRAIN BAG. IVF INFUSING. NO DISTRESS. CPOC.
[2017-08-12 05:10] LABS: BASOPHILS 0.2 % (0-2); EOSINOPHILS 0.1 % (0-7); HEMATOCRIT 40.3 % (42.0-54.0); HEMOGLOBIN 12.9 g/dL (13.5-17.5); IMMATURE GRANULOCYTES 6.9 % (0-5); LYMPHOCYTES 10.2 % (15-50); MCH 28.7 pg (26.0-34.0); MCV 89.6 fL (80.0-100.0); MEAN PLATELET VOLUME 9.6 fL (7.4-10.4); NEUTROPHILS 77.6 % (40-80); PLATELET COUNT 111 10x3/uL (130-400)
[2017-08-12 05:25] LABS: ANION GAP 15.7 mmol/L (8-16); CALCIUM 8.9 mg/dL (8.5-10.1); CARBON DIOXIDE 24.8 mmol/L (21.0-32.0); CREATININE - SERUM 1.4 mg/dL (0.6-1.3); MAGNESIUM - SERUM 2.2 mg/dL (1.8-2.4); POTASSIUM - SERUM 3.5 mmol/L (3.5-5.1)
[2017-08-12 05:33] LABS: PHOSPHOROUS 3.3 mg/dL (2.5-4.9)
--- NOTE | 2017-08-12 06:17 | NUR ---
AM LAB POTASSIUM 3.5. PER ELECTROLYTE PORTOCOL, STARTED BAG #1 OF POTASSIUM 10MEQ AT 100ML/HR TO LEFT HAND.
--- NOTE | 2017-08-12 07:30 | NUR ---
REPORT RECEIVED. RR EVEN AND UNLABORED. PT IS ALERT, ABLE TO FOLLOW COMMANDS, I WAS UNABLE TO ASSESS ORIENTATION DUE TO PT NOT BEING ABLE TO SPEAK CLEARLY. PT WILL ANSWER YES AND NO QUESTIONS WITH A NOD OR HEAD SHAKE. ASSESSMENT PERFORMED, HUNG SECOND K+ RIDER PER E PROTOCOL, WILL CTM.
--- NOTE | 2017-08-12 09:27 | NUR ---
PT IS NOT SWALLOWING SAFELY. HE FREQUENTLY GARBLES AND CHOKES WHEN FEEDING PT HONEY THICKEND LIQUIDS. UNALBE TO GIVE MORNING MEDS. SPEECH PATHOLOGIST SHOULD ASSESS PT TODAY.
--- NOTE | 2017-08-12 14:13 | NUR ---
UNABLE TO COLLECT RESP. SPECIMEN DUE TO PT NOT BEING ABLE TO FOLLOW INSTRUCTIONS AND HAS NON PRODUCTIVE COUGH.
--- NOTE | 2017-08-12 14:30 | NUR ---
SPOKE TO SPEECH PATHOLOGY REGARDING PT EVALUATION. SPEECH THERAPY REPORTED THAT PT NEEDS TO STAY NPO DUE TO PT NOT SWALLOWING WELL. WILL CTM.
--- NOTE | 2017-08-12 16:38 | NUR ---
Patient Name: FAITH MONTANO Admission Status: ER Accout number: [id number] Admission Date: 08-09-2017 : 1930 Admission Diagnosis: Attending: MILY HERRERA Current LOS: 3 Anticipated DC Date: Planned Disposition: Jail Facility Primary Insurance: [employer] CHOICE PPO MCR ADVANT PLANNED EXTERNAL PROVIDER: [facility], MEDICARE REHAB BED Discharge Planning Comments: * Is the patient Alert and Oriented? No 0 * How many steps to enter\exit or inside your home? 1 0 * PCP DR. OLIVER 0 * Pharmacy [facility] 0 * Preadmission Environment Jail Facility 0 * Facility Name [facility] 0 * ADLs Partial Dependent 0 * Partial ADLs (Assistance needed) Ambulation Bathing Dressing Medication Management Transfers 0 * Equipment Other 0 * Other Equipment ALL MEDICAL EQUIPMENT PROVIDED BY [facility] 0 * List name and contact numbers for known caregivers / representatives who currently or will assist patient after discharge: DOROTEO THURSTON, SPOUSE, 0 * Community resources currently utilized None 0 * Please name any agencies selected above. NONE 0 * Additional services required to return to the preadmission environment? No 0 * Can the patient safely return to the preadmission environment? Yes 0 * Has this patient been hospitalized within the prior 30 days at any hospital? Yes 0 CM MET WITH PT AND SPOUSE IN ROOM TO DISCUSS DISCHARGE PLANNING AND NEEDS. PT SLEEPING SOUNDLY THROUGHOUT; PT'S SPOUSE REPORTS PT HAS BEEN AT [facility] FOR THE PAST TWO WEEKS AND SHE FEELS THAT PT HAS NOT RECEIVED GOOD REHAB OR CARE AT THE FACILITY. PT'S SPOUSE ASKED WHO TO COMPLAIN TO, CM INFORMED SPOUSE TO CALL [facility] OFFICE OF RETIREMENT CARE FOR LONG TERM / REHAB COMPLAINTS. PT'S SPOUSE REPORTS SHE WANTS TO HAVE PT PLACED INTO REHAB AT ANOTHER INTERMEDIATE FACILITY AND HAS TALKED TO FRIENDS WHO RECOMMENDED [facility] TO HER. CHOICE SIGNED, IMPORTANT MESSAGE FROM MEDICARE PROVIDED AND EXPLAINED. CM CALLED [facility], , LEFT MESSAGE FOR SANJANA, NOTIFIED OF REFERRAL; CM FAXED REFERRAL TO [facility], . CM WAITING ADMISSION SCREENING AND ADMISSION DETERMINATION. PT WILL REQUIRE INSURANCE PRE AUTHORIZATION FOR REHAB SERVICES. Harp Regulator: Brian Templeton
--- NOTE | 2017-08-12 18:44 | NUR ---
PT RESTING QUIETLY, RR EVEN AND UNLABORED. BED IN LOWEST POSTION, FALL SOCKS ON PT, WILL GIVE REPORT ON PT CONDITION FOR THE DAY.
--- NOTE | 2017-08-13 04:45 | NUR ---
PT LYING IN BED, EYES CLOSED, RESPIRATIONS EVEN AND UNLABORED, CONTINUE TO MONITOR CLOSELY. BED LOW, CALL LIGHT IN REACH, SIDE RAILS X 2, HOB 30 DEGREES.
[2017-08-13 05:07] VITALS: BP 139/72
[2017-08-13 05:35] LABS: BASOPHILS 0.3 % (0-2); EOSINOPHILS 0.2 % (0-7); HEMATOCRIT 31.5 % (42.0-54.0); HEMOGLOBIN 9.5 g/dL (13.5-17.5); LYMPHOCYTES 12.8 % (15-50); MCH 28.1 pg (26.0-34.0); MCHC 30.2 g/dL (31.0-37.0); MCV 93.2 fL (80.0-100.0); MEAN PLATELET VOLUME 10.2 fL (7.4-10.4); MONOCYTES 4.5 % (2-11); NEUTROPHILS 75.2 % (40-80); PLATELET COUNT 88 10x3/uL (130-400); RBC 3.38 10x6/uL (4.20-6.10); RDW 15.5 % (11.5-14.5); WBC 11.2 10x3/uL (4.8-10.8)
--- NOTE | 2017-08-13 06:06 | NUR ---
PATIENT TURNED TO RIGHT SIDE AT THIS TIME. WILL CONTINUE TO TURN HIM Q 2 HOURS.
[2017-08-13 06:28] LABS: PLATELET ESTIMATE DECREASED
--- NOTE | 2017-08-13 06:40 | NUR ---
PATIENT UNABLE TO SIGN CONSENT FOR EGD/PEG-TUBE PLACEMENT, CONSENT RECIEVED VIA PHONE BY SPOUSE.
[2017-08-13 06:44] LABS: ANION GAP 13.4 mmol/L (8-16); CALCIUM 7.9 mg/dL (8.5-10.1); CARBON DIOXIDE 22.9 mmol/L (21.0-32.0); CREATININE - SERUM 1.1 mg/dL (0.6-1.3); POTASSIUM - SERUM 4.3 mmol/L (3.5-5.1)
[2017-08-13 08:13] VITALS: BP 133/82
[2017-08-13 12:14] VITALS: BP 113/53
--- NOTE | 2017-08-13 14:30 | NUR ---
IV PATENT. TELEMETRY . COY INTACT. BED ALRM ON. CALL LIGHT IN REACH. WILL CONT. PLAN OF CARE.
[2017-08-13 17:13] VITALS: BP 116/54
--- NOTE | 2017-08-13 18:50 | NUR ---
ROUNDING NOTE: PT SLEEPING AT CHANGE OF SHIFT. PT'S GRANDSON AT THE BEDSIDE. PLAN IS FOR PT TO HAVE EGD/PEG TUBE PLACEMENT TOMORROW. 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 D5 @ 50CC/HR TO RIGHT HAND AND PROCALAMINE @ 75CC/HR TO LEFT WRIST. GRANDSON DENIES ANY NEEDS. WILL CONT TO MONITOR.
[2017-08-13 20:47] VITALS: BP 128/66
[2017-08-14 00:52] VITALS: BP 150/73
[2017-08-14 04:37] VITALS: BP 117/87
--- NOTE | 2017-08-14 05:45 | NUR ---
UNABLE TO OBTAIN RESP CULTURE B/C PT CANNOT COMPLY. PT HAS BEEN SLEEPING THROUGH THE NIGHT COMFORTABLY. HAVE BEEN TURNING AND POSITIONING HIM EVERY 2 HOURS TO PREVENT SKIN BREAKDOWN. PT WILL NOT KEEP HEART MONITOR ON, SO IT HAS BEEN RETURNED. PLAN IS FOR A EGD AND PEG TUBE PLACEMENT TODAY. PT CONTINUES TO BE STRICT NPO. WILL CONT TO MONITOR.
[2017-08-14 05:50] LABS: BASOPHILS 0.2 % (0-2); EOSINOPHILS 0.2 % (0-7); HEMATOCRIT 34.7 % (42.0-54.0); HEMOGLOBIN 11.3 g/dL (13.5-17.5); IMMATURE GRANULOCYTES 8.4 % (0-5); LYMPHOCYTES 10.4 % (15-50); MCH 28.7 pg (26.0-34.0); MCHC 32.6 g/dL (31.0-37.0); MEAN PLATELET VOLUME 10.5 fL (7.4-10.4); MONOCYTES 4.3 % (2-11); NEUTROPHILS 76.5 % (40-80); PLATELET COUNT 90 10x3/uL (130-400); RBC 3.94 10x6/uL (4.20-6.10); RDW 14.6 % (11.5-14.5); WBC 11.1 10x3/uL (4.8-10.8)
[2017-08-14 06:01] LABS: MCV 88.1 fL (80.0-100.0)
[2017-08-14 06:16] LABS: CALC OSMOLALITY 287 mosm/kg (275-300); CALCIUM 8.1 mg/dL (8.5-10.1); CARBON DIOXIDE 24.1 mmol/L (21.0-32.0); CHLORIDE - SERUM 107 mmol/L (98-107); CREATININE - SERUM 0.9 mg/dL (0.6-1.3); GLUCOSE 170 mg/dL (74-106); POTASSIUM - SERUM 4.1 mmol/L (3.5-5.1); SODIUM 139 mmol/L (136-145); UREA NITROGEN 29 mg/dL (7-18); eGFR NON AFRICAN AMERICAN 85 mL/min (90-120)
[2017-08-14 08:14] VITALS: BP 122/63
--- NOTE | 2017-08-14 10:57 | NUR ---
Nutrition Follow Up: Pt is NPO for PEG placement today. +BM 08/12/17. Wt stable. Labs reviewed.Meds noted including Procalamine @ 75 ml/hr providing 441 kcal and 52 g protein. When ok with General Surgery to use PEG rec: Start TF of Glucerna 1.0 @ 20 ml/hr. Advance 10 ml every 6-8 hours as tolerated to goal rate of 75 ml/hr. Water flushes 15 ml/hr. Goal rate will provide 1800 kcal, 74 g protein and 1515 ml free water. Rec d/c Procalamine once TF starts. RD following.
[2017-08-14 12:10] VITALS: BP 122/76
--- NOTE | 2017-08-14 12:52 | NUR ---
ALERT. DYSPHAGIA. GUARDS RT HAND. AT BEDSIDE ANXIOUSLY WAITING FOR PEG TUBE PLACEMENT. CALLED GI LAB REQUESTING TIME OF PROCEDURE. TIME UNKNOWN. STATES, "IF YA'LL DO NOT FEED HIM I WILL." EXPLAIN THE REASON PATIENT UNABLE TO EAT DUE TO ASPIRATION. PHYSICAL THERAPY IN ROOM FOR STRENGTHENING EXERCISES. CONTINUE PLAN OF CARE. BED LOCKED AND LOW. CALL LIGHT IN REACH. CONTINUE SAFETY PRECAUTIONS. REFUSE TELEMETRY.
--- NOTE | 2017-08-14 13:39 | NUR ---
PHYSICAL THERAPY MAX ASSIST TO CHAIR. AT BEDSIDE. 1st STEP OVERLAY MATTRESS PLACED ON BED PER ORDER. PHYSICAL THERAPY ASSIST BACK TO BED. CONTINUE PLAN OF CARE AND SAFETY PRECAUTIONS. BED ALARM ON.
[2017-08-14 15:31] VITALS: BP 131/63
--- NOTE | 2017-08-14 16:24 | NUR ---
TAKE TO PROCEDURE VIA BED. CONTINUE PLAN OF CARE AND SAFETY PRECAUTIONS.
--- NOTE | 2017-08-14 16:46 | NUR ---
Patient Name: FAITH MONTANO Encounter No: [id number] : 1930 Primary Insurance: [employer] CHOICE PPO MCR ADVANT Anticipated DC Date: Planned Disposition: [facility] Facility External Planned Provider: [facility], MEDICARE REHAB BED DCP follow-up note: CM RECEIVED CALL FROM YOLIE OF [facility], , REFERRAL RECEIVED AND THEY WILL EVALUATE FOR REHAB. CM FAXED UPDATE TO [facility], . CM WAITING ADMISSION SCREENING AND ADMISSION DETERMINATION. PT WILL REQUIRE INSURANCE PRE AUTHORIZATION FOR REHAB SERVICES. Food Server: Brian Templeton
--- NOTE | 2017-08-14 17:43 | NUR ---
1743 REPORT TO MELVA Demarco INSTRUCTED TO ASSESS RT ARM ARM TIGHT CHECK SITE.AND NEEDS ABDOMINAL BINDER.
--- NOTE | 2017-08-14 18:18 | NUR ---
RETURN TO ROOM VIA BED FROM PEG TUBE PLACEMENT. DYSPHAGIC. BP-129/63, P-92, R-20, T-99.4, O2-100% RA. CALLED DEPUTY INSURANCE COMMISSIONER FOR ABDOMINAL BINDER PER ORDER. AT BEDSIDE. CESPEDES DRAINING AT BEDSIDE. CONTINUE PLAN OF CARE. BED ALARM ON. BED LOCKED AND LOW. CALL LIGHT IN REACH. TWO SIDERAILS UP.
[2017-08-14 19:00] VITALS: BP 118/71
--- NOTE | 2017-08-14 19:00 | NUR ---
PT WENT FRO PEG TUBE PLACEMENT TODAY. FREQUENT VS CURRENTLY FOR POST PROCEDURE MONITORING, VS HAVE BEEN STABLE. ABD BINDER IN PLACE. PT HAS RIGHT AC IV WITH D5 RUNNING AT 50CC/HR AND LEFT WRIST IV W/ PROCALAMINE RUNNING AT 75CC/HR. PT IS ON 1ST STEP OVERLAY BED AND WILL BE T&P Q2 HOURS. IS AT THE BEDSIDE, BUT SHE STATES THAT SHE WILL BE GOING HOME SHORTLY. NO NEEDS AT THIS TIME WILL MONITOR.
--- NOTE | 2017-08-14 21:30 | NUR ---
ATTEMPTED TO HANG PT'S VANCO VIA RIGHT AC IV; HOWEVER, IV HAS INFILTRATED. PT'S LEFT ARM IS EDEMATOUS AND HAD TO CUT OFF ID BAND. RADIAL PULSE PALPABLE, STRONG. IV D/C'D. PT IS A DIFFICULT STICK. MYSELF AND ANOTHER RN ATTEMPTED TO FIND A SPOT FOR A NEW IV WITHOUT SUCCESS. ICU CHARGE NURSE EMMY STARTED IV IN LEFT AC AND VANCO HUNG. WILL CONT TO MONITOR.
[2017-08-15] VITALS: BP 117/65
--- NOTE | 2017-08-15 03:33 | NUR ---
ASSISTED ELEMENTARY SCHOOL DIRECTOR WITH BATHING PATIENT AND REPOSITIONING IN BED. PT NOTED TO HAVE REDDENED AREA ON SACRUM/BUTTOCKS AND RED AREA ON BILATERAL HEELS. RIGHT HEEL WITH SCAB ON HEEL WELL. PT TURNED TO THE SIDE AND HEELS OFFLOADED. WILL CONT TO MONITOR. PT IS ON A 1ST STEP OVERLAY.
[2017-08-15 04:00] VITALS: BP 153/70
[2017-08-15 05:08] LABS: BASOPHILS 0.2 % (0-2); EOSINOPHILS 0.1 % (0-7); HEMATOCRIT 36.2 % (42.0-54.0); HEMOGLOBIN 12.3 g/dL (13.5-17.5); IMMATURE GRANULOCYTES 10.3 % (0-5); LYMPHOCYTES 11.3 % (15-50); MCH 28.5 pg (26.0-34.0); MEAN PLATELET VOLUME 10.1 fL (7.4-10.4); MONOCYTES 3.9 % (2-11); NEUTROPHILS 74.2 % (40-80); RBC 4.31 10x6/uL (4.20-6.10); RDW 14.7 % (11.5-14.5)
[2017-08-15 05:12] LABS: PLATELET COUNT 120 10x3/uL (130-400); WBC 16.8 10x3/uL (4.8-10.8)
[2017-08-15 05:17] LABS: CALC OSMOLALITY 287 mosm/kg (275-300); CALCIUM 8.1 mg/dL (8.5-10.1); CARBON DIOXIDE 22.5 mmol/L (21.0-32.0); CHLORIDE - SERUM 106 mmol/L (98-107); GLUCOSE 192 mg/dL (74-106); POTASSIUM - SERUM 3.5 mmol/L (3.5-5.1); SODIUM 139 mmol/L (136-145); UREA NITROGEN 27 mg/dL (7-18); eGFR NON AFRICAN AMERICAN 75 mL/min (90-120)
--- NOTE | 2017-08-15 07:43 | NUR ---
AT BEDSIDE. PEG SITE CLEAN AND DRY. PT TURNED ON R SIDE. WILL CONTINUE TO MONITOR.
[2017-08-15 08:00] VITALS: BP 136/61
--- NOTE | 2017-08-15 09:06 | NUR ---
Nutrition Consult: Consult received for TF. Will put order in to start TF when ok with General Surgery. Pt should be monitored closely for s/s of Refeeding Syndrome. RD following.
--- NOTE | 2017-08-15 10:53 | NUR ---
PT HAS SAT UP IN CHAIR FOR 30 MINS. CRISTINA HUSSEIN. BACK IN BED. STILL NPO FOR SCAN
[2017-08-15 12:00] VITALS: BP 169/78
--- NOTE | 2017-08-15 13:12 | OP ---
PATIENT NAME: FAITH MONTANO MEDICAL RECORD: [id number] :[birth year] LOCATION:D. D.2128 ADMISSION DATE:08/09/17 SURGEON: JUNIOR CROW MD DATE OF OPERATION: 08/14/2017 SURGEON: Junior Crow MD PREOPERATIVE DIAGNOSES: Stroke, hypertension, dysphagia. POSTOPERATIVE DIAGNOSES: Stroke, hypertension, dysphagia. PROCEDURE PERFORMED: EGD with PEG. COMPLICATIONS: None. SPECIMENS: None. Case was contaminated. ESTIMATED BLOOD LOSS: 10 cc. ANESTHESIA: Total intravenous anesthesia. OPERATIVE COURSE: After consent was obtained, the patient was taken to the endoscopy suite. He was placed in supine position in his hospital bed. A bite block was placed. Hurricaine [place] was administered. A timeout was taken to confirm the correct patient and procedure. Total intravenous anesthesia was administered. The gastroscope was inserted through the oropharynx under direct endoscopic vision, it was passed through the esophagus and into the stomach and the stomach was insufflated. The left upper quadrant was transilluminated. Skin was marked. The skin was then prepped and draped in typical sterile fashion. Local anesthetic was administered. A skin incision was made with 11-blade scalpel. The angiocatheter was passed under direct endoscopic vision. The angiocatheter was passed through the abdominal wall and in to the stomach. The needle was removed. The wire was passed through the angiocatheter, it was grasped with a snare grasper. The wire, scope, and snare grasper were removed. The gastrostomy tube was attached to the wire in a standard pull technique. The gastrostomy tube was delivered through the anterior abdominal wall and secured to the skin in 3 cm. At the end of the case, all needle and instrument counts were correct. No complications occurred. The patient tolerated the procedure well. He was transferred to the recovery room in satisfactory condition. TRANSINT:[id number] Voice Confirmation ID: [id number] DOCUMENT ID: [id number] JUNIOR CROW MD at 1312 CC: [id number] DICTATION DATE: 08/14/171732 BRAKE REPAIRER RAILROAD: 08/14/172031 [place] [address]
--- NOTE | 2017-08-15 14:50 | NUR ---
@2196 RECEIVED A CALL FROM YOLIE AT [facility]. SHE STATED THAT [facility] WILL NOT APPROVE PATIENT FOR THERAPY ON PENITENTIARY CARE. EXPLAINED I WOULD TALK WITH THE PATIENT AND HIS SHORTLY AND SEE WHAT THEY WOULD LIKE TO DO. SHE REQUESTED TO BE CALLED BACK AT [phone]. @ 3704 RECEIVED ANOTHER CALL FROM YOLIE TO LET ME KNOW THAT THEY DID NOT HAVE ANY DISTRIBUTED [facility] CARE BEDS FOR MEN SO THEY WOULD NOT BE ABLE TO ACCEPT HIM IF THEY CHOSE DISTRIBUTED [facility]ERGY [facility]S [facility]SULTANT CARE. SPOKE WITH THE . SHE STATED THAT SHE WANTED THE PATIENT TO GO TO REHAB AND NOT PENITENTIARY CARE. REVIEWED THE PATIENT CHOICE FORM WITH HER AND SHE CHOSE THE [facility]. SHE QUESTIONED TO IF THE [facility] WOULD PAY FOR REHAB IF [employer] WAS NOT. I EXPLAINED THAT I DID NOT KNOW, THE ONLY THING I COULD DO WAS CALL AND SEE. SHE HAS REQUESTED THAT THAT BE DONE. SHE STATED SHE WANTED HIM TO GET STRONGER SO SHE COULD TAKE HIM HOME. SPOKE WITH MAYLIN AGUIRRE, CLINICAL LIASON FOR THE [facility]. REFERRAL FAXED. SHE IS GOING TO SPEAK WITH THE PATIENTS . MAYLIN STATED THAT SHE ASSISTED WITH GETTING THIS PAIENT INTO [facility], SO SHE WAS FAMILIAR WITH THEM.
[2017-08-15 16:00] VITALS: BP 144/82
--- NOTE | 2017-08-15 19:33 | NUR ---
RESUMED CARE OF PT, LYING IN BED RESPIRATIONS EVEN AND UNLABORED ON ROOM AIR. LEFT WRIST INFUSING LACTATED RINGERS @ KVO AND LEFT AC INFUSING PROCALAMINE @ 75. GLUCERNA 1.0 TO PEG TUBE @ 30, WILL ADVANCE TOLERATED TO A GOAL RATE OF 75. CESPEDES TO GRAVITY AND 1ST STEP OVERLAY INFLATED. NO NEEDS NOTED AT THIS TIME, WILL CONTINUE TO MONITOR. SEE NURSE ASSESSMENT.
[2017-08-15 21:38] VITALS: BP 136/69
--- NOTE | 2017-08-15 22:09 | NUR ---
RESIDUAL FROM PEG TUBE CHECKED, LESS THAN 1ML WITHDRAWN. MEDS GIVEN THROUGH TUBE AND GLUCERNA 1.0 ADVANCED TO 40ML/HR. CALL LIGHT IN REACH. WILL CONTINUE TO MONITOR.
[2017-08-16 01:53] VITALS: BP 140/77
--- NOTE | 2017-08-16 02:30 | NUR ---
LYING IN BED, CALL LIGHT IN REACH. WILL CONTINUE WITH PLAN OF CARE.
[2017-08-16 04:16] VITALS: BP 127/62
--- NOTE | 2017-08-16 05:44 | NUR ---
TUBE FEEDING LINES CHANGED AND RESIDUAL CHECKED, LESS THAN 1ML ABLE TO ASPIRATE. ADVANCED FEEDING TO 50ML/HR WITH A 15ML FLUSH EVERY HR.
--- NOTE | 2017-08-16 07:15 | NUR ---
REPORT RECIEVED. PT RESTING QUIETLY, FAMILY AT BEDSIDE. INTERNAL FEED RUNNING AT 50MLS/HR. RR EVEN AND UNLABORED. ASSESSMENT PERFOMRED, WILL CTM.
--- NOTE | 2017-08-16 08:37 | NUR ---
CHECKED PTS RESIDUAL PRIOR TO ADMIINSTERING MORNING MEDS. LESS THAN 5MLS RESIDUAL NOTED FROM PEG. GAVE PT 30 MLS WITH MEDS AND A 30 ML FLUSH. WILL CTM.
[2017-08-16 08:46] VITALS: BP 160/78
--- NOTE | 2017-08-16 09:00 | NUR ---
CURRENT STAT LOCK BROKEN, APPLIED NEW STAT LOCK TO LEG. WILL CTM.
--- NOTE | 2017-08-16 10:16 | NUR ---
Nutrition Follow Up: Pt's reported that pt is tolerating TF well. Noted per chart pt with only <5 ml residual. TF of Glucerna 1.0 @ 50 ml/hr at this time. +BM 08/16/17. Wt continues to trend up. Labs reviewed - glucose continues elevated. Meds noted including Procalamine @ 75 ml/hr. Rec continue advancing TF 10 ml every 6-8 hours as tolerated to goal of 75 ml/hr. Rec d/c Procalamine. RD following.
--- NOTE | 2017-08-16 11:15 | NUR ---
CHECKED RESIDUAL IN PEG TUBE. 15 MLS RESIDUAL NOTED, INCREASED FEED TO 60 MLS/HR. WILL CTM FEEDING TOLERANCE.
[2017-08-16 11:59] VITALS: BP 147/67
[2017-08-16 16:20] VITALS: BP 152/63
--- NOTE | 2017-08-16 18:30 | NUR ---
PT RESTING QUIELTY, RR EVEN AND UNLABORED. RESIDUAL CHECKED, LESS THAN 1 ML NOTED. WILL GIVE REPORT ON PT CONDITION FOR THE DAY.
[2017-08-16 19:00] VITALS: BP 142/67
--- NOTE | 2017-08-16 22:50 | NUR ---
PT RESTING WITH EYES CLOSED. RESP EVEN AND REGULAR. SR UP X2,CALL LIGHT WITHIN REACH.
[2017-08-17] VITALS: BP 155/68
[2017-08-17 04:00] VITALS: BP 147/71
--- NOTE | 2017-08-17 07:30 | NUR ---
ASSESSMENT COMPLETED. DENIES ANY NEEDS. PT VIPIN A DNR. CESPEDES CATH PATENT. SCDS ON. FIRST STEP MATTRESS ON. . FAMILY AT BEDSIDE. PEG TUBE WITH GLUCERNIA AT 70. IV TO LEFT AC AND LEFT WRIST. WILL MONITOR
[2017-08-17 08:00] VITALS: BP 147/68
[2017-08-17 12:20] VITALS: BP 109/55
--- NOTE | 2017-08-17 16:36 | NUR ---
RESTING QUIETLY RESP UNLABORED NAD NOTED
--- NOTE | 2017-08-17 18:17 | NUR ---
LYING QUIETLY. REPOSITIONED FOR COMFORT.NO NEEDS VOICED. ON 1ST STEP BED. GLUCERNIA 1.0 AT 70 TO ABD G TUBE. CESPEDES DRANING WELL . WILL MONITOR. SR UP WITH BED ALARM ON
--- NOTE | 2017-08-17 19:44 | NUR ---
RESUMED CARE OF PT, LYING IN BED WITH EYES CLOSED RESPIRATIONS EVEN AND UNLABORED ON ROOM AIR. LEFT WRIST INFUSING PROCALAMINE @ 75 AND LEFT AC INFUSING D5W @ 50. PEG TUBE INFUSING GLUCERNA 1.0 @ 70. CESPEDES TO GRAVITY. 1ST STEP OVERLAY INFLATED. NO NEEDS NOTED AT THIS TIME, CALL LIGHT IN REACH. WILL CONTINUE TO MONITOR. SEE NURSE ASSESSMENT.
[2017-08-17 22:22] VITALS: BP 135/79
--- NOTE | 2017-08-18 00:21 | NUR ---
24 GAUGE TO LEFT WRIST PULLED OUT BY PT, TIP INTACT.
--- NOTE | 2017-08-18 01:22 | NUR ---
LYING IN BED WITH EYES CLOSED, CALL LIGHT IN REACH. BED ALARM ON.
[2017-08-18 01:33] VITALS: BP 166/79
--- NOTE | 2017-08-18 02:25 | NUR ---
BED BATH AND LINENS CHAGNED. REPOSITIONED FOR COMFORT
[2017-08-18 05:47] VITALS: BP 153/78
--- NOTE | 2017-08-18 07:30 | NUR ---
RESTING QUIETLY EYES CLOSED RESP UNLABORED NAD NOTED
--- NOTE | 2017-08-18 07:30 | NUR ---
ASSESSMENT COMPLETED. ALERT, SPEAKS AT TIMES.ABLE TO HELP TURN HIMSELF. PEG TUBE EITH GLURICENA AT1.0 AT 75. CESPEDES CATH PATENT TO GRAVITY BAG. PT IS ON A 1ST STEP OVER LAY. REPOSITIONED FOR COMFORT
[2017-08-18 08:00] VITALS: BP 153/69
[2017-08-18 12:00] VITALS: BP 126/54
[2017-08-18 16:00] VITALS: BP 159/76
--- NOTE | 2017-08-18 19:53 | NUR ---
RESUMED CARE OF PT, LYING IN BED RESPIRATIONS EVEN AND UNLABORED ON ROOM AIR. LEFT AC INFUSING D5W @ 50. 1ST STEP OVERLAY INFLATED AND CESPEDES CATHETER TO GRAVITY. PEG TUBE INFUSING GLUCERNA 1.0 @ 75. BED ALARM IS ON. CALL LIGHT IN REACH. NO NEEDS NOTED AT THIS TIME, WILL CONTINUE TO MONITOR. SEE NURSE ASSESSMENT.
[2017-08-18 20:25] VITALS: BP 149/95
[2017-08-19 00:51] VITALS: BP 142/66
[2017-08-19 05:19] VITALS: BP 133/64
[2017-08-19 06:25] LABS: BASOPHILS 0.2 % (0-2); EOSINOPHILS 0.2 % (0-7); HEMATOCRIT 30.7 % (42.0-54.0); HEMOGLOBIN 10.1 g/dL (13.5-17.5); IMMATURE GRANULOCYTES 4.7 % (0-5); LYMPHOCYTES 12.6 % (15-50); MCH 28.1 pg (26.0-34.0); MCHC 32.9 g/dL (31.0-37.0); MCV 85.5 fL (80.0-100.0); MEAN PLATELET VOLUME 9.8 fL (7.4-10.4); MONOCYTES 7.1 % (2-11); NEUTROPHILS 75.2 % (40-80); PLATELET COUNT 105 10x3/uL (130-400); RBC 3.59 10x6/uL (4.20-6.10); RDW 15.6 % (11.5-14.5); WBC 10.4 10x3/uL (4.8-10.8)
[2017-08-19 06:56] LABS: CALC OSMOLALITY 277 mosm/kg (275-300); CALCIUM 8.2 mg/dL (8.5-10.1); CARBON DIOXIDE 25.5 mmol/L (21.0-32.0); CHLORIDE - SERUM 104 mmol/L (98-107); CREATININE - SERUM 0.8 mg/dL (0.6-1.3); POTASSIUM - SERUM 4.2 mmol/L (3.5-5.1); SODIUM 134 mmol/L (136-145); UREA NITROGEN 19 mg/dL (7-18); eGFR NON AFRICAN AMERICAN > 90 mL/min (90-120)
[2017-08-19 06:57] LABS: GLUCOSE 246 mg/dL (74-106)
[2017-08-19 08:21] VITALS: BP 121/69
--- NOTE | 2017-08-19 08:56 | NUR ---
ASSESSMENT DONE, DENIES NEEDS,
--- NOTE | 2017-08-19 10:32 | NUR ---
IV PATENT. AT BS. CALL LIGHT IN REACH. WILL CONT. PLAN OF CARE.
[2017-08-19 12:26] VITALS: BP 109/49
--- NOTE | 2017-08-19 13:54 | NUR ---
Nutrition Follow Up: Pt was asleep at the time of RD visit. Spoke with pt's about changing TF to bolus soon. Pt is tolerating current TF regimen of Glucerna 1.0 @ 75 ml/hr which is goal rate. Noted Procalamine has been d/c. Wt gain noted. +BM 08/17/17. Labs noted - Glucose elevated. Rec continue current TF regimen. Will change to bolus soon if tolerated. RD following.
--- NOTE | 2017-08-19 17:38 | NUR ---
WITHOUT CHANGES OR DISTRESS NOTED AT THIS TIME.
[2017-08-19 19:32] VITALS: BP 136/67
--- NOTE | 2017-08-19 19:34 | NUR ---
PAGE OUT TO DR LEE PER DR ORONA TO ASK ABOUT UAMS.
--- NOTE | 2017-08-19 22:50 | NUR ---
ANSWERED CALL FROM DR LEE, EXPLAINED THAT DR ORONA HAD PUT IN ANOTHER CONSULT AND ASKING IF THERE WAS ANY NEW INFORMATION REGUARDING UAMS AND THE PT RECIEVING STENTS, AND THAT I DIDNT SEE ANY DOCUMENTATION THAT HE HAD BEEN NOTIFIED YET AND WANTED TO MAKE HIM AWARE OF SECOND CONSULT. DR LEE STATED THAT HE HAD SPOKE WITH SOMEONE FROM DR ORONA OFFICE EARLIER IN THE DAY AND THAT THERE IS NO NEW INFORMATION REGUARDING UAMS.
[2017-08-20] VITALS: BP 122/59
--- NOTE | 2017-08-20 02:52 | NUR ---
RESTING WITH EYES CLOSED, NO S/S DISTRESS NOTED.
[2017-08-20 04:04] VITALS: BP 127/58
[2017-08-20 04:22] LABS: BASOPHILS 0.2 % (0-2); EOSINOPHILS 0.2 % (0-7); HEMATOCRIT 28.1 % (42.0-54.0); HEMOGLOBIN 9.3 g/dL (13.5-17.5); LYMPHOCYTES 13.9 % (15-50); MCH 28.2 pg (26.0-34.0); MCHC 33.1 g/dL (31.0-37.0); MCV 85.2 fL (80.0-100.0); MEAN PLATELET VOLUME 9.8 fL (7.4-10.4); MONOCYTES 6.6 % (2-11); NEUTROPHILS 75.1 % (40-80); PLATELET COUNT 119 10x3/uL (130-400); RDW 15.9 % (11.5-14.5); WBC 9.8 10x3/uL (4.8-10.8)
--- NOTE | 2017-08-20 04:31 | NUR ---
FEEDING PUMP TUBING CHANGED OUT, GLUCERNA 1.0 AMITA INFUSING AT 50 CC/HR.
[2017-08-20 04:48] LABS: CALC OSMOLALITY 279 mosm/kg (275-300); CALCIUM 8.1 mg/dL (8.5-10.1); CARBON DIOXIDE 24.9 mmol/L (21.0-32.0); CHLORIDE - SERUM 104 mmol/L (98-107); CREATININE - SERUM 0.8 mg/dL (0.6-1.3); POTASSIUM - SERUM 3.9 mmol/L (3.5-5.1); SODIUM 136 mmol/L (136-145); UREA NITROGEN 20 mg/dL (7-18); eGFR NON AFRICAN AMERICAN > 90 mL/min (90-120)
[2017-08-20 04:50] LABS: GLUCOSE 180 mg/dL (74-106)
--- NOTE | 2017-08-20 05:00 | NUR ---
PT RESTING IN BED WITH NO DISTRESS. NO NEEDS VOICED. CPOC.
--- NOTE | 2017-08-20 07:41 | NUR ---
ASSESSMENT DONE. PATIENT RESTING IN BED WITH EYES CLOSED. NO SIGNS/SYMPTOMS OF PAIN OR DISCOMFORT.
[2017-08-20 07:42] VITALS: BP 123/63
[2017-08-20 11:23] VITALS: BP 115/51
--- NOTE | 2017-08-20 12:56 | NUR ---
Patient Name: FAITH MONTANO Encounter No: [id number] : 1930 Primary Insurance: [employer] CHOICE PPO MCR ADVANT Anticipated DC Date: Planned Disposition: Long Term Facility External Planned Provider: [facility], PER [facility] NURSE CARE BED DCP follow-up note: CM RECEIVED REQUEST FROM BEDSIDE NURSE TO SPEAK TO PT'S SPOUSE IN PT'S ROOM. CM SPOKE TO PT'S SPOUSE IN ROOM WHO REPORTS SHE HAS SPOKEN TO SOMEONE AT [facility] REGARDING [facility] AND SHE WAS ADVISED TO HAVE CM CALL [facility] DISTILLERY MILLER XU[facility] THOMAS TO SEE ABOUT HAVING PT TRANSFERRED FOR [facility] REHAB SERVICES IN [place]. PT'S SPOUSE HAS NOT HEARD ANYTHING FROM [facility] BUT WOULD STILL BE WILLING FOR REHAB THERE IF POSSIBLE. CM EXPLAINED POSSIBILITY OF SKILLED NURSING CARE IN NURSING FACILITY AND ABILITY TO RESUBMIT TO INSURANCE FOR REHAB SERVICES AT A LATER DATE IF PT BECOMES ABLE TO PARTICIPATE IN THERAPY. PT'S SPOUSE DOES NOT WANT TO PLACE PT INTO PER DIEM NURSE CARE, ONLY FOR REHAB. IMPORTANT MESSAGE FROM MEDICARE PROVIDED AND EXPLAINED. CM CALLED MAYLIN, CLINICAL LIAISON FOR [facility], , WHO ADVISED THAT PT'S INSURANCE IS DENYING REHAB SERVICES, [facility] MAY ACCEPT FOR PER DIEM NURSE CARE AND [facility] IS CONTACTING THE VA REQUESTED BY PT'S SPOUSE TO DETERMINE IF PT HAS ANY VA BENEFITS TO ASSIST WITH PAYMENT FOR NURSING FACILITY CARE AND REHAB SERVICES. CM CALLED XUAN THOMAS [facility] DISTILLERY MILLER AT [facility], , LEFT DETAILED MESSAGE REQUESTING VA REHAB PLACEMENT REQEUSTED BY PT'S SPOUSE. CM WAITING CALL BACK FROM [facility] DISTILLERY MILLER. Brian Templeton, CASE MANAGEMENT
--- NOTE | 2017-08-20 13:57 | NUR ---
CONFUSED. LAYING IN BED. PEG FEEDING SET AT 50mL/HR CONTINUOUS. ORDERED AT 75mL/HR NOT TOLERATED. CESPEDES DRAINING AT BEDSIDE SECURED TO INNER THIGH WITH SAT LOCK. TOTAL ASSIST WITH PHYSICAL THERAPY TO CHAIR. NO IV PER DOCTOR. FIRST STEP OVERLAY BED FUNCTIONING. BED LOCKED AND LOW. CALL LIGHT IN REACH. THREE SIDERAILS UP. RESUME PLAN OF CARE INITIATED BY LATRELL SU.
--- NOTE | 2017-08-20 15:05 | NUR ---
Wound care consult: Blanchable redness noted on coccyx and 2cm x 2cm excoriated area noted on right buttock (blanchable). Zinc paste is being applied with personal care. Bilateral heels are soft and tiffany slowly. He is currently on an air overlay mattress and requires q2h turning/repositioning. PT gets him up to chair daily, so while in chair he requires repositioning hourly if he sits up longer than an hour. Recommend changing to calmoseptine cream for protection of skin on coccyx and heels need to be continuously bridged while in bed. Wound care will continue monitoring.
[2017-08-20 16:03] VITALS: BP 121/66
--- NOTE | 2017-08-20 17:08 | NUR ---
Patient Name: FAITH MONTANO Encounter No: [id number] : 1930 Primary Insurance: HUMANA CHOICE PPO MCR ADVANT Anticipated DC Date: Planned Disposition: Penitentiary Facility External Planned Provider: [facility], CORPORATE COMMUNICATIONS INTERN CARE MEDICAID BED DCP follow-up note: CM RECEIVED MESSAGE FROM MAYLIN, CLINICAL LIAISON FOR THE [facility] WHO INFORMED CM THAT THE [facility] HAS CHECKED WITH THE HI AND WAS NOTIFIED THAT THE HI WILL NOT PAY FOR REHAB AT THE HI NOR AT THE [facility] FOR THE PT; FUTHER, HI WILL NOT PAY FOR PT'S RETIREMENT CARE NEEDS. CM NOTIFIED PT'S SPOUSE IN ROOM, WHO REPORTS CONTINUED INTEREST IN PLACEMENT AT THE [facility] IF PT IS NOT ACCEPTED BY THE [facility] FOR REHAB SERVICES, INSISTING THAT THE [facility] CLINIC IN [place] TOLD HER THAT THE [facility] WOULD TAKE PT FOR REHAB. CM CONTINUES TO WAIT RETURN CALL FROM XUAN THOMAS, [place] PROFESSIONAL BASS FISHER AT [facility], , REGARDING POSSIBILTY OF REHAB SERVICES AT [facility]. CM FAXED UPDATED REFERRAL TO THE [facility] VIA MAYLIN AT [phone]. CM WAITING ADMISSION DETERMINATION FROM THE [facility] ALSO. Brian Templeton, CASE MANAGEMENT
--- NOTE | 2017-08-20 18:02 | NUR ---
PATIENT RESTING IN BED WITH EYES CLOSED. NO CHANGES NOTED. NO SIGNS OR SYMPTOMS OF PAIN OR DISCOMFORT.
[2017-08-20 19:00] VITALS: BP 124/72
--- NOTE | 2017-08-20 19:20 | NUR ---
PT RESTING IN BED. NAME AND DATE PLACED ON BOARD. PT LAYING ON RIGHT SIDE. PT HAD A MODERATE BM. SOFT, BROWN. CLEANED PT UP. CHANGED GOWN AND LINEN. ORAL CARE DONE. REPOSISTONED PT. PT BED LOW AND CALL LIGHT IN REACH. WILL CPOC
--- NOTE | 2017-08-20 23:26 | NUR ---
PT INCONT A SMALL BM. PT DID ASK FOR A BEDPAN BUT IT WAS TO LATE. CLEANED PT UP. CHANGED LINEN AND GOWN. ROBINSON APPLIED TO BUTTOCK AND SCROTUM. PT HAS EDEMA ON PENIS. WILL REPORT AND CONTINUE TO MONITOR. ORAL CARE GIVEN AND PT TURNED TO LEFT SIDE. PT STATES HE IS COMFORTABLE. BED LOW AND CALL LIGHT IN REACH. WILL CPOC
[2017-08-21] VITALS: BP 124/63
--- NOTE | 2017-08-21 01:13 | NUR ---
GAVE PT A BATH, ORAL CARE DONE. REPOSITONED PT . PT ON 1ST STEP OVERLAY. DENIES ANY NEEDS. NO S/S OF DISTRESS. WILL CPOC
[2017-08-21 04:00] VITALS: BP 118/66
[2017-08-21 05:47] LABS: BASOPHILS 0.1 % (0-2); EOSINOPHILS 0.2 % (0-7); HEMATOCRIT 28.4 % (42.0-54.0); HEMOGLOBIN 9.3 g/dL (13.5-17.5); IMMATURE GRANULOCYTES 5.5 % (0-5); LYMPHOCYTES 18.8 % (15-50); MCH 28.2 pg (26.0-34.0); MCHC 32.7 g/dL (31.0-37.0); MCV 86.1 fL (80.0-100.0); MEAN PLATELET VOLUME 9.6 fL (7.4-10.4); MONOCYTES 6.7 % (2-11); NEUTROPHILS 68.7 % (40-80); PLATELET COUNT 137 10x3/uL (130-400); RDW 16.1 % (11.5-14.5); WBC 8.9 10x3/uL (4.8-10.8)
[2017-08-21 05:59] LABS: CALC OSMOLALITY 277 mosm/kg (275-300); CALCIUM 8.4 mg/dL (8.5-10.1); CARBON DIOXIDE 26.7 mmol/L (21.0-32.0); CHLORIDE - SERUM 104 mmol/L (98-107); CREATININE - SERUM 0.7 mg/dL (0.6-1.3); POTASSIUM - SERUM 3.8 mmol/L (3.5-5.1); SODIUM 138 mmol/L (136-145); UREA NITROGEN 18 mg/dL (7-18); eGFR NON AFRICAN AMERICAN > 90 mL/min (90-120)
[2017-08-21 06:17] LABS: GLUCOSE 100 mg/dL (74-106)
--- NOTE | 2017-08-21 06:17 | NUR ---
FSBS 108 NO COVERAGE NEEDED. PT LAYING ON LEFT SIDE. PILLOW BETWEEN LEGS. PT DENIES ANY NEEDS AT THIS TIME. NO S/S OF DISTRESS.WILL CPOC
[2017-08-21 07:43] VITALS: BP 129/65
--- NOTE | 2017-08-21 09:41 | NUR ---
Patient Name: FAITH MONTANO Encounter No: [id number] : 1930 Primary Insurance: HU[employer]NA CHOICE PPO MCR ADVANT Anticipated DC Date: Planned Disposition: Fpc Facility External Planned Provider: [facility], LONG TERM CARE MEDICAID BED DCP follow-up note: CM CALLED SANDI THOMAS [place] CLINICAL OPERATIONS MANAGER, , LEFT DETAILED MESSAGE ASKING FOR RETURN CALL SOON POSSIBLE SO THAT CM WILL KNOW IF PT HAS ANY POSSIBILITY OR EVEN QUALIFIES FOR [place] REHAB SERVICES. CM CONTINUES TO WAIT RETURN CALL FROM UXAN THOMAS [place] CLINICAL OPERATIONS MANAGER AT [facility], , REGARDING POSSIBILTY OF REHAB SERVICES AT [place]. CM WAITING ADMISSION DETERMINATION FROM [facility] ALSO. Brian Templeton, CASE MANAGEMENT
[2017-08-21 11:36] VITALS: BP 100/51
--- NOTE | 2017-08-21 11:47 | NUR ---
FSBS 192. PT REC'D 8 UNITS PER SS INSULIN. PT SITTING UP IN BED RESTING QUIETLY. ORAL CARE PROVIDED FOR DRY MOUTH. TURNED PT TO HIS L.SIDE PT C/O ABDOMINAL PAIN, RELEASE BINDER AND PT VOICED IMMEDIATE RELIEF. WILL CONTINUE TO LEAVE BINDER UNWRAPPED FOR COMFORT. PT VERBALIZED UNDERSTANDING NOT TO PULL ON SITE. WILL CTM.
--- NOTE | 2017-08-21 13:05 | NUR ---
APPLIED ROBINSON TO PTS BOTTOM FOR REDDNESS AND DISCOMFORT. PULLED PT UP IN BED AND REPOSITIONED HIM TO HIS R.SIDE TO RELIEVE PRESSURE. PT VOICED THANKS AND IS RESTING WITH HIS AT BEDSIDE. CL IN REACH, WILL CPOC.
[2017-08-21 15:09] VITALS: BP 110/54
[2017-08-21 19:00] VITALS: BP 135/68
--- NOTE | 2017-08-21 19:26 | NUR ---
PT ASLEEP. LAYING ON HIS LEFT SIDE. RESPIRATIONS EVEN AND UNLABORED. NO S/S OF DISTRESS. BEDLOW AND CALL LIGHT IN REACH. WILL CPOC
[2017-08-22] VITALS: BP 135/67
--- NOTE | 2017-08-22 | NUR ---
PT REPOSITIONED, ORAL CARE DONE. ROBINSON APPLIED TO BUTTOCKS. PT BED LOW AND CALL LIGHT IN REACH. WILL CPOC
--- NOTE | 2017-08-22 03:20 | NUR ---
REPOSITIONED PT. ORAL CARE DONE. PT DENIES ANY NEEDS AT THIS TIME. NO S/S OF DISTRESS. WILL CPOC
[2017-08-22 05:24] VITALS: BP 144/64
[2017-08-22 05:40] LABS: BASOPHILS 0.1 % (0-2); EOSINOPHILS 0.1 % (0-7); HEMATOCRIT 28.5 % (42.0-54.0); HEMOGLOBIN 9.3 g/dL (13.5-17.5); MCH 28.1 pg (26.0-34.0); MCHC 32.6 g/dL (31.0-37.0); MCV 86.1 fL (80.0-100.0); MEAN PLATELET VOLUME 9.9 fL (7.4-10.4); MONOCYTES 7.4 % (2-11); NEUTROPHILS 67.4 % (40-80); PLATELET COUNT 151 10x3/uL (130-400); RBC 3.31 10x6/uL (4.20-6.10); RDW 16.2 % (11.5-14.5); WBC 7.4 10x3/uL (4.8-10.8)
[2017-08-22 05:53] LABS: CALCIUM 8.3 mg/dL (8.5-10.1); CARBON DIOXIDE 28.2 mmol/L (21.0-32.0); CHLORIDE - SERUM 104 mmol/L (98-107); CREATININE - SERUM 0.8 mg/dL (0.6-1.3); SODIUM 138 mmol/L (136-145); UREA NITROGEN 15 mg/dL (7-18); eGFR NON AFRICAN AMERICAN > 90 mL/min (90-120)
[2017-08-22 06:10] LABS: CALC OSMOLALITY 279 mosm/kg (275-300); GLUCOSE 149 mg/dL (74-106); POTASSIUM - SERUM 4.4 mmol/L (3.5-5.1)
--- NOTE | 2017-08-22 06:32 | NUR ---
PT REPOSTITIONED TO RIGHT SIDE., CLEANED PT UP. PT PENIS STILL HAS EDEMA ON PENIS. PT C/O PAIN AND TYLENOL WAS GIVEN. PT DENIES ANY OTHER NEEDS. NO S/S OF DISTRESS. WILL CPOC
[2017-08-22 08:07] VITALS: BP 134/59
--- NOTE | 2017-08-22 09:44 | NUR ---
RESTING QUIETLY EYES CLOSED RESP UNLABORED AT BEDSIDE DENIES ANY NEEDS
--- NOTE | 2017-08-22 09:57 | NUR ---
Nutrition Follow Up: TF of Glucerna 1.0 has been decreased to 50 ml/hr due to pt having some diarrhea. Residuals <50 ml. Wt stable. +BM 08/22/17. Labs reviewed. Meds noted including Miralax, Colace. Spoke with nursing regarding TF rate. Will increase rate 10 ml every 8-12 hours as tolerated to goal of 75 ml/hr. Water flushes 15 ml/hr. Rec consider decreasing Miralax, Colace. RD following.
[2017-08-22 11:53] VITALS: BP 102/60
--- NOTE | 2017-08-22 16:16 | NUR ---
Patient Name: FAITH MONTANO Encounter No: [id number] : 1930 Primary Insurance: HU[employer] CHOICE PPO MCR ADVANT Anticipated DC Date: 08-23-2017 Planned Disposition: Assisted Facility External Planned Provider: [facility], CUSTODIAL CARE MEDICAID BED DCP follow-up note: CM MET WITH PT'S SPOUSE IN ROOM TO DISCUSS DISCHARGE PLANNING AND NEEDS. SPOUSE REPORTS THAT SHE HAS DISCUSSED CUSTODIAL CARE WITH THE [facility] AND HAS TO PROVIDE THEM SOME FINANCIAL INFORMATION TOMORROW TO MAKE THE ARRANGEMENTS. CM FAXED UPDATE TO THE [facility] VIA MAYLIN, CLINICAL LIAISON, . CM CONTINUES TO WAIT RETURN CALL FROM XUAN THOMAS, [place] SPECIAL EDUCATION ADMINISTRATOR AT [facility], , REGARDING POSSIBILTY OF REHAB SERVICES AT [place]. CM WAITING ADMISSION DETERMINATION FROM THE [facility] ALSO. CM WAITING ADMISSION DETERMINATION FROM THE [facility] Brian Templeton, CASE MANAGEMENT
--- NOTE | 2017-08-22 18:42 | NUR ---
REPOSITIONED FOR COMFORT. PEG TUBE WITH GLUCERNIA 1.0 AT 60. TOLORATED WELL. CESPEDES CATH TO BEDSIDE DRAINAGE
--- NOTE | 2017-08-22 20:17 | NUR ---
RESUMED CARE OF PT, LYING IN BED WITH EYES CLOSED RESPIRATIONS EVEN AND UNLABORED ON ROOM AIR. 1ST STEP OVERLAY INFLATED AND CESPEDES TO GRAVITY. GLUCERNA 1.0 INFUSING TO G TUBE @ 60. NO NEEDS NOTED AT THIS TIME, CALL LIGHT IN REACH. WILL CONTINUE TO MONITOR. SEE NURSE ASSESSMENT.
[2017-08-22 20:24] VITALS: BP 138/68
--- NOTE | 2017-08-22 22:28 | NUR ---
BED BATH AND LINENS CHANGED, REPOSITIONED FOR COMFORT
[2017-08-23 00:12] VITALS: BP 137/65
--- NOTE | 2017-08-23 02:30 | NUR ---
LYING IN BED WITH EYES CLOSED, CALL LIGHT IN REACH. WILL CONTINUE TO MONITOR.
--- NOTE | 2017-08-23 03:58 | NUR ---
KANGAROO BAGS EXCHANGED, GLUCERNA 1.0 @ 75
[2017-08-23 05:17] VITALS: BP 160/85
--- NOTE | 2017-08-23 06:42 | NUR ---
NO CHANGES FROM PREVIOUS ASSESSMENT, CALL LIGHT IN REACH. WILL CONTINUE TO MONITOR.
[2017-08-23 06:43] LABS: BASOPHILS 0.1 % (0-2); EOSINOPHILS 0.3 % (0-7); HEMATOCRIT 28.7 % (42.0-54.0); HEMOGLOBIN 9.3 g/dL (13.5-17.5); IMMATURE GRANULOCYTES 4.3 % (0-5); LYMPHOCYTES 22.7 % (15-50); MCHC 32.4 g/dL (31.0-37.0); MCV 86.4 fL (80.0-100.0); MEAN PLATELET VOLUME 9.3 fL (7.4-10.4); MONOCYTES 6.5 % (2-11); NEUTROPHILS 66.1 % (40-80); PLATELET COUNT 141 10x3/uL (130-400); RBC 3.32 10x6/uL (4.20-6.10); RDW 16.1 % (11.5-14.5)
[2017-08-23 06:56] LABS: CALC OSMOLALITY 277 mosm/kg (275-300); CALCIUM 8.2 mg/dL (8.5-10.1); CARBON DIOXIDE 27.8 mmol/L (21.0-32.0); CHLORIDE - SERUM 103 mmol/L (98-107); CREATININE - SERUM 0.8 mg/dL (0.6-1.3); GLUCOSE 183 mg/dL (74-106); POTASSIUM - SERUM 4.3 mmol/L (3.5-5.1); SODIUM 136 mmol/L (136-145); UREA NITROGEN 15 mg/dL (7-18); eGFR NON AFRICAN AMERICAN > 90 mL/min (90-120)
--- NOTE | 2017-08-23 07:15 | NUR ---
REPORT RECEIVED. RR EVEN AND UNLABORED. PT IS ALERT AND ORIENTED TO PERSON, PLACE, AND SITUATION. ASSESSMENT PERFORMED. PT TURNED. DENIES FURTHER NEEDS, WILL CTM.
[2017-08-23 08:22] VITALS: BP 120/60
--- NOTE | 2017-08-23 09:40 | NUR ---
CHECKED RESIDUAL LESS THAN 5MLS NOTED. PT IS COMPLAINING OF ABD PAIN AND KEBEDE, TYLENOL GIVEN. BS ACTIVE X4, PT HAD SMALL BM THIS MORNING. GAVE MORNING MEDS. WILL CTM.
--- NOTE | 2017-08-23 12:30 | NUR ---
CHECKED RESIDUAL. LESS THAN 2 MLS NOTED. GAVE NOON MEDS. PT RESTING QUIETLY, WILL CTM.
[2017-08-23 12:39] VITALS: BP 140/59
--- NOTE | 2017-08-23 18:15 | NUR ---
PT RESTING QUIELTY, INCONTINENT LARGE AMT STOOL. CHANGED PTS LINENS AND PROVIDED JENNIFER CARE X2 ASSIST. PT TURNED. WILL GIVE REPORT ON PT CONDTION FOR THE DAY.
--- NOTE | 2017-08-23 19:55 | NUR ---
PT IN BED RESTING QUIETLY. BREATHING EVEN AND UNLABORED. BED IN LOW POSITION, CALL LIGHT WITHIN REACH.
[2017-08-23 20:00] VITALS: BP 133/63
[2017-08-24] VITALS: BP 129/64
[2017-08-24 04:00] VITALS: BP 130/61
--- NOTE | 2017-08-24 04:12 | NUR ---
PEG TUBE FEEDING TUBES CHANGED. BREATHING EVEN AND UNLABORED. DENIES ANY PAIN OR NEEDS AT THIS TIME. BED IN LOW POSITOIN, CALL LIGHT WITHIN REACH.
--- NOTE | 2017-08-24 07:45 | NUR ---
REPORT RECEIVED. PT RESTING QUIETLY RR EVEN AND UNLABORED. TUBE FEEDING RUNNING AT 75MLS PER HR. SCDS ON PT, WILL CTM.
[2017-08-24 07:47] LABS: BASOPHILS 0.3 % (0-2); EOSINOPHILS 0.4 % (0-7); HEMATOCRIT 28.5 % (42.0-54.0); HEMOGLOBIN 9.2 g/dL (13.5-17.5); IMMATURE GRANULOCYTES 3.5 % (0-5); LYMPHOCYTES 23.4 % (15-50); MCHC 32.3 g/dL (31.0-37.0); MCV 86.9 fL (80.0-100.0); MEAN PLATELET VOLUME 9.1 fL (7.4-10.4); MONOCYTES 5.1 % (2-11); NEUTROPHILS 67.3 % (40-80); PLATELET COUNT 147 10x3/uL (130-400); RBC 3.28 10x6/uL (4.20-6.10); RDW 16.1 % (11.5-14.5); WBC 6.8 10x3/uL (4.8-10.8)
[2017-08-24 08:00] LABS: CALC OSMOLALITY 278 mosm/kg (275-300); CALCIUM 8.5 mg/dL (8.5-10.1); CARBON DIOXIDE 28.6 mmol/L (21.0-32.0); CHLORIDE - SERUM 103 mmol/L (98-107); CREATININE - SERUM 0.8 mg/dL (0.6-1.3); POTASSIUM - SERUM 4.2 mmol/L (3.5-5.1); SODIUM 139 mmol/L (136-145); UREA NITROGEN 13 mg/dL (7-18); eGFR NON AFRICAN AMERICAN > 90 mL/min (90-120)
[2017-08-24 08:03] LABS: GLUCOSE 113 mg/dL (74-106)
[2017-08-24 08:39] VITALS: BP 153/67
--- NOTE | 2017-08-24 10:45 | NUR ---
CHECKED RESIUDAL. LESS THAN 2 MLS NOTED. WILL CONTINUE FEEDING AND CTM.
[2017-08-24 12:00] VITALS: BP 135/63
[2017-08-24 16:00] VITALS: BP 124/55
--- NOTE | 2017-08-24 17:30 | NUR ---
PT RESTING QUILETY, RR EVEN AND UNLABORED. CHECKED RESIDUAL, NO RESIDUAL NOTED. TUBE FEEDING BAG EMPTY, ADDED 500MLS OF GLUCERNA 1.0 TO BAG. PT DENIES NEEDS AT THIS TIME. WILL GIVE REPORT ON PT CONDTION FOR THE DAY.
--- NOTE | 2017-08-24 19:32 | NUR ---
INITIAL ROUNDS COMPLETED. PT RESTING WITH EYES CLOSED. RESP EVEN AND REGULAR. SR UP X2, CALL LIGHT WITHIN REACH.
[2017-08-24 20:00] VITALS: BP 124/64
--- NOTE | 2017-08-24 20:46 | NUR ---
PT INCONTINENT OF STOOL. INCONTINENT CARE DONE. CALOSEPTIMINE PLACED ON STAGE 1 OF R BUTTOCKS. REPOSITIONED IN BED FOR COMFORT. WILL CONTINUE TO MONITOR.
--- NOTE | 2017-08-24 22:22 | NUR ---
OPM MEDS GVEN VIA PEG. RESIDUAL CHECKED WITH 10CC NOTED. PT INCONTINENT OF STOOL. INCONTINENT CARE DONE. PT REPOSITIONED IN BED FOR CONFORT. WILL CONTINUE TO MONITOR. SR UP X2, CALL LIGHT WITHIN REACH AND BED ALARM ON WITH DOOR OPEN.
[2017-08-25] VITALS: BP 144/65
--- NOTE | 2017-08-25 00:40 | NUR ---
2400 FSBS 152. 8 UNITS HUMALOG GIVEN SUB-Q TO UPPER R ARM PER S/S. REPOSITIONED IN BED FRO COMFORT. SR UP X3, CALL LIGHT WITHIN REACH AND BED ALARM ON.
--- NOTE | 2017-08-25 01:11 | NUR ---
NEW KANGAROO FEEDING BAG AND FLUSH UP WITH GLUCERNA AT 75CC/HR AND 25CC OF H20 FLUSH Q1HR. NEW DRAIN SPONGE APPLIED TO PEG TUBE INSERTION SITE. BED BATH IN PROGRESS.
--- NOTE | 2017-08-25 02:11 | NUR ---
REPOSITIONED IN BEDF OR COMFORT. WILL CONTINUE TO MONITOR.
[2017-08-25 04:00] VITALS: BP 136/64
--- NOTE | 2017-08-25 04:26 | NUR ---
PT REPOSITIONED IN BED FOR COMFORT. WILL CONTINUE TO MONITOR.
[2017-08-25 05:03] LABS: BASOPHILS 0.1 % (0-2); EOSINOPHILS 0.3 % (0-7); HEMATOCRIT 30.2 % (42.0-54.0); HEMOGLOBIN 9.6 g/dL (13.5-17.5); LYMPHOCYTES 18.4 % (15-50); MCH 27.8 pg (26.0-34.0); MCHC 31.8 g/dL (31.0-37.0); MCV 87.5 fL (80.0-100.0); MEAN PLATELET VOLUME 8.9 fL (7.4-10.4); MONOCYTES 6.9 % (2-11); NEUTROPHILS 70.3 % (40-80); PLATELET COUNT 150 10x3/uL (130-400); RBC 3.45 10x6/uL (4.20-6.10); WBC 7.5 10x3/uL (4.8-10.8)
[2017-08-25 05:20] LABS: CALC OSMOLALITY 275 mosm/kg (275-300); CALCIUM 8.3 mg/dL (8.5-10.1); CARBON DIOXIDE 29.6 mmol/L (21.0-32.0); CHLORIDE - SERUM 102 mmol/L (98-107); CREATININE - SERUM 0.8 mg/dL (0.6-1.3); GLUCOSE 114 mg/dL (74-106); POTASSIUM - SERUM 4.4 mmol/L (3.5-5.1); SODIUM 137 mmol/L (136-145); UREA NITROGEN 16 mg/dL (7-18); eGFR NON AFRICAN AMERICAN > 90 mL/min (90-120)
--- NOTE | 2017-08-25 06:07 | NUR ---
VSS THROUGHOUT NIGHT. PT DENIES ANY DISCOMFORT. AM FSBS 114. NO COVERAGE NEEDED. NEEDS MET;WILL CONTINUE TO MONITOR.
--- NOTE | 2017-08-25 07:15 | NUR ---
REPORT RECEIVED. PT RESTING QUIELTY, RR EVEN AND UNLABORED. ASKED PT IF HE HAD A GOOD NIGHT LAST NIGHT AND HE SAID "ALRIGHT." FAMILY AT BEDSIDE. SCDS ON PT, FEEDING TUBE RUNNING GLUCERNA AT 75MLS/HR. WILL CTM.
[2017-08-25 08:00] VITALS: BP 131/64
--- NOTE | 2017-08-25 11:18 | NUR ---
MEDS GIVEN. CHECKED RESIDAUL PRIOR TO ADMINISTERING MEDS. LESS THAN 5MLS NOTED FOR RESIDUAL. RR EVEN AND UNLABORED. PT DENIES NEEDS AT THIS TIME. WILL CTM.
[2017-08-25 12:00] VITALS: BP 126/62
[2017-08-25 16:00] VITALS: BP 125/53
--- NOTE | 2017-08-25 17:45 | NUR ---
PT INCONTINENT LARGE AMT SOFT STOOL. PROVIDED FULL BED BATH X2 ASSIST. CHANGED DRESSING AROUND PEG TUBE. CHANGED LINENS. WILL CTM.
--- NOTE | 2017-08-25 18:47 | NUR ---
PT RESTING QUIELTY, RR EVEN AND UNLABORED. PT REQUEST PRN PAIN MED, GIVEN. CHECKED RESIDUAL ON PEG TUBE LESS THAN 2MLS NOTED. PT DENIES FURTHER NEEDS AT THS TIME, WILL CTM.
--- NOTE | 2017-08-25 19:58 | NUR ---
RESUMED CARE OF PT, LYING IN BED WITH EYES CLOSED RESPIRATIONS EVEN AND UNLABORED ON ROOM AIR. CESPEDES TO GRAVITY AND FIRST STEP OVERLAY INFLATED. GLUCERNA 1.0 @ 75 TO G TUBE. NO NEEDS AT THIS TIME, CALL LIGHT IN REACH. BED ALARM ON. WILL CONTINUE TO MONITOR. SEE NURSE ASSESSMENT.
[2017-08-25 20:00] VITALS: BP 138/64
[2017-08-26] VITALS: BP 109/52
--- NOTE | 2017-08-26 01:21 | NUR ---
BED BATH AND LINENS CHANGED, INCONTINENT EPISODE CLEANED UP. REPOSITIONED FOR COMFORT. CALL LIGHT IN REACH. WILL CONTINUE TO MONITOR.
[2017-08-26 04:00] VITALS: BP 129/63
--- NOTE | 2017-08-26 05:42 | NUR ---
KANGAROO TUBING EXCHANGED, MORNING MEDS GIVEN THROUGH G TUBE. COMPLAINS OF PAIN TO HIS STOMACH, WILL HOLD TUBE FEEDINGS FOR NOW. CALL LIGHT IN REACH. WILL CONTINUE TO MONITOR.
[2017-08-26 06:12] LABS: BASOPHILS 0.2 % (0-2); EOSINOPHILS 0.2 % (0-7); HEMATOCRIT 30.6 % (42.0-54.0); HEMOGLOBIN 9.7 g/dL (13.5-17.5); IMMATURE GRANULOCYTES 3.7 % (0-5); LYMPHOCYTES 28.3 % (15-50); MCH 27.6 pg (26.0-34.0); MCHC 31.7 g/dL (31.0-37.0); MCV 86.9 fL (80.0-100.0); MEAN PLATELET VOLUME 9.4 fL (7.4-10.4); MONOCYTES 7.8 % (2-11); NEUTROPHILS 59.8 % (40-80); PLATELET COUNT 167 10x3/uL (130-400); RBC 3.52 10x6/uL (4.20-6.10)
[2017-08-26 06:39] LABS: CALC OSMOLALITY 276 mosm/kg (275-300); CALCIUM 8.4 mg/dL (8.5-10.1); CARBON DIOXIDE 27.6 mmol/L (21.0-32.0); CHLORIDE - SERUM 102 mmol/L (98-107); CREATININE - SERUM 0.8 mg/dL (0.6-1.3); GLUCOSE 117 mg/dL (74-106); POTASSIUM - SERUM 4.3 mmol/L (3.5-5.1); SODIUM 137 mmol/L (136-145); UREA NITROGEN 17 mg/dL (7-18); eGFR NON AFRICAN AMERICAN > 90 mL/min (90-120)
[2017-08-26 07:23] LABS: MAGNESIUM - SERUM 1.9 mg/dL (1.8-2.4); PHOSPHOROUS 3.2 mg/dL (2.5-4.9)
--- NOTE | 2017-08-26 07:38 | NUR ---
PT SITTING UP IN BED WATCHING TV DENIES ANY NEEDS. AT BEDSIDE. TUBE FEEDING IS UNHOOKED FROM PT AT THIS TIME? RESIDUAL CHECK SHOWS LESS THAN 5 CC. PT DENIES ANY ABDOMINAL PAIN. ORDERS SAY FOR PT TO BE ON TUBE FEEDING AT 50 CC/HR TUBE FLUSES 15 CC/HR. PROGRAMMED KANGAROO PUMP AND APPLIED TO PT PEG TUBE. WILL CONT TO MONITOR
[2017-08-26 08:34] VITALS: BP 119/63
--- NOTE | 2017-08-26 08:56 | NUR ---
Patient Name: FAITH MONTANO Encounter No: [id number] : 1930 Primary Insurance: HUMANA CHOICE PPO MCR ADVANT Anticipated DC Date: 08-23-2017 Planned Disposition: Senior Living Facility External Planned Provider: [facility], LONG TERM CARE MEDICAID BED DCP follow-up note: CM FAXED UPDATE TO MAYLIN, CLINICAL LIAISON FOR THE [facility], AT [phone]. MAYLIN REPORTS THAT SHE EXPECTS ARRANGEMENTS TO BE COMPLETED TODAY, 08-26-17. CM WAITING PT'S SPOUSE TO COMPLETE FINANCIAL ARRANGEMENTS FOR ADMISSION TO THE [facility] FOR [facility] CARE. YOLI TORRES, CASE MANAGEMENT
--- NOTE | 2017-08-26 09:55 | NUR ---
CALLED TO PT ROOM BY [facility]. ZACHERY REPORTS THAT HE HAD GOTTEN PT UP ON SIDE OF BED, PT NEEDED TO USE BED AWAD. ZACHERY PLACED BED AWAD UNDER PT. PT THEN PROCEEDED TO HAVE A BM. ZACHERY SAID THAT PT STOPPED BREATHING FOR ABOUT 20 SECONDS, THEN HE GASPED LOUDLY. UPON ENTERING THE ROOM PT WAS BREATHING, RR ARE 24 PER MINUTE. PULSE OX IS 96% ON RA, BP IS 159/83 HR IS 86 BPM. PT CALMED DOWN AND EXPLAINED TO PT THAT HE MOST LIKELY HAS VAGAL DOWNED. PT RR ARE NOW 18. PT STATES HE FEELS BETTER NOW. PT IS STABLE. AT BEDSIDE. WILL NOTIFY
[2017-08-26 12:23] VITALS: BP 116/65
--- NOTE | 2017-08-26 14:41 | NUR ---
CALLED GILBERT WITH DIETARY TO VERIFY ORDER WITH TUBE FEEDINGS. ANOTHER NURSE HAD SAID THAT THEY LOWERED THE TUBE FEEDING TO 50 CC/HR BECAUSE PT WAS HAVING DIARRHEA. BUT THAT THEY WERE SUPPOSED TO START INCREASING IT TOLERATED UP TO GOAL RATE OF 75. THERE IS NO CURRENT ORDER THAT STATES THAT. GILBERT SAID SHE WOULD PUT AN ORDER IN SINCE PT IS NOT HAVING ANY MORE DIARRHEA OF NOW. WILL START INCREASING SOON ORDER IS IN
--- NOTE | 2017-08-26 14:48 | NUR ---
Nutrition follow-up: Glucerna had been decreased to 50 ml/hr due to pt with diarrhea. Pt not meeting estimated energy needs at this time. Glucerna 1.0 carole now increasing to goal rate of 75 ml/hr with 15 ml H2O flush every hour. Strongly recommend discontinuing Colace and Miralax due to pt with continued loose stools. RDN following.
[2017-08-26 16:43] VITALS: BP 118/59
--- NOTE | 2017-08-26 16:58 | NUR ---
PT LAYING TO LEFT SIDE SLEEPING NO S/S DISTRESS NOTED RR EVEN AND UNLABORED WILL CONT TO MONITOR
[2017-08-26 20:30] VITALS: BP 131/57
[2017-08-27 01:44] VITALS: BP 132/56
[2017-08-27 04:40] VITALS: BP 149/74
[2017-08-27 06:00] LABS: BASOPHILS 0.2 % (0-2); EOSINOPHILS 0.3 % (0-7); HEMATOCRIT 29.8 % (42.0-54.0); HEMOGLOBIN 9.5 g/dL (13.5-17.5); LYMPHOCYTES 22.2 % (15-50); MCHC 31.9 g/dL (31.0-37.0); MCV 87.9 fL (80.0-100.0); MEAN PLATELET VOLUME 9.2 fL (7.4-10.4); MONOCYTES 7.6 % (2-11); NEUTROPHILS 65.7 % (40-80); PLATELET COUNT 171 10x3/uL (130-400); RBC 3.39 10x6/uL (4.20-6.10); RDW 16.1 % (11.5-14.5); WBC 8.7 10x3/uL (4.8-10.8)
[2017-08-27 06:21] LABS: CALC OSMOLALITY 281 mosm/kg (275-300); CALCIUM 8.5 mg/dL (8.5-10.1); CARBON DIOXIDE 27.9 mmol/L (21.0-32.0); CHLORIDE - SERUM 101 mmol/L (98-107); CREATININE - SERUM 0.8 mg/dL (0.6-1.3); POTASSIUM - SERUM 4.2 mmol/L (3.5-5.1); SODIUM 137 mmol/L (136-145); UREA NITROGEN 20 mg/dL (7-18); eGFR NON AFRICAN AMERICAN > 90 mL/min (90-120)
[2017-08-27 06:22] LABS: GLUCOSE 190 mg/dL (74-106)
[2017-08-27 07:13] VITALS: BP 130/65
--- NOTE | 2017-08-27 08:34 | NUR ---
RESTLESS AT TIMES. PT ON BACK. AT BEDSIDE.
[2017-08-27 12:57] VITALS: BP 114/59
[2017-08-27 16:00] VITALS: BP 133/71
--- NOTE | 2017-08-27 19:30 | NUR ---
ASSESSMENT COMPLETE. PT BEDFAST. CONFUSED; AROUSES TO VOICE. PEG TUBE; GLUCERNA @ 60CC / 15CC FLUSH/HR. RR CRACKLES BILATERALLY IN UPPER AND MID LOBES; DIMINISHED BILATERALLY IN LOWER LOBES. MOANS; SPEECH UNCLEAR; GARBLED. PERRLA. WEAKNESS NOTED TO ALL EXREMITIES. EDEMA NOTED TO PERINEAL AREA. BUTTOCKS/COCCYX REDDENED. R/L HEELS REDDENED; BRIDGED. ROTATE PT Q2H
[2017-08-27 20:00] VITALS: BP 115/56
--- NOTE | 2017-08-27 21:30 | NUR ---
ROTATED PT FOR COMFORT; RIGHT SIDE. WILL CONTINUE TO MONITOR.
--- NOTE | 2017-08-27 23:30 | NUR ---
ROTATE PT FOR COMFORT; BACK. PT AROUSES TO VOICE.
[2017-08-28] VITALS: BP 109/60
--- NOTE | 2017-08-28 01:42 | NUR ---
REPOSITIONED IN BED FOR COMFORT.
--- NOTE | 2017-08-28 03:02 | NUR ---
RESTING WITH EYES CLOSED, RESPERATIONS SHALLOW, NO S/S DISTRESS NOTED.
[2017-08-28 04:00] VITALS: BP 106/60
--- NOTE | 2017-08-28 05:09 | NUR ---
FEEDING PUMP TUBING CHANGED OUT. GLUCERNA 1.0 AMITA INFUSING AT 60 CC/HR WITH 15 CC/HR WATER FLUSH.
[2017-08-28 05:37] LABS: BASOPHILS 0.1 % (0-2); EOSINOPHILS 0.6 % (0-7); HEMATOCRIT 31.8 % (42.0-54.0); IMMATURE GRANULOCYTES 4.6 % (0-5); LYMPHOCYTES 23.9 % (15-50); MCH 27.5 pg (26.0-34.0); MCHC 31.4 g/dL (31.0-37.0); MCV 87.4 fL (80.0-100.0); MEAN PLATELET VOLUME 8.9 fL (7.4-10.4); MONOCYTES 9.2 % (2-11); NEUTROPHILS 61.6 % (40-80); PLATELET COUNT 161 10x3/uL (130-400); RBC 3.64 10x6/uL (4.20-6.10); RDW 16.1 % (11.5-14.5); WBC 8.3 10x3/uL (4.8-10.8)
[2017-08-28 06:02] LABS: CALC OSMOLALITY 279 mosm/kg (275-300); CALCIUM 8.5 mg/dL (8.5-10.1); CARBON DIOXIDE 29.2 mmol/L (21.0-32.0); CHLORIDE - SERUM 101 mmol/L (98-107); CREATININE - SERUM 0.7 mg/dL (0.6-1.3); GLUCOSE 160 mg/dL (74-106); POTASSIUM - SERUM 4.2 mmol/L (3.5-5.1); SODIUM 137 mmol/L (136-145); UREA NITROGEN 20 mg/dL (7-18); eGFR NON AFRICAN AMERICAN > 90 mL/min (90-120)
--- NOTE | 2017-08-28 07:37 | NUR ---
ASSESSMENT DONE. DENIES NEEDS.
[2017-08-28 08:35] VITALS: BP 136/69
--- NOTE | 2017-08-28 10:21 | NUR ---
UP TO CHAIR WITH CALL LIGHT IN REACH. TF INFUSING. STUDENTS AT BS CHANGING LINENS. WILL CONT. PLAN OF CARE.
[2017-08-28 12:40] VITALS: BP 142/64
[2017-08-28 16:44] VITALS: BP 146/62
--- NOTE | 2017-08-28 17:12 | NUR ---
WITHOUT CHANGES OR DISTRESS NOTED AT THIS TIME. AT SIDE.
--- NOTE | 2017-08-28 18:07 | NUR ---
OT NOTE: PT COMPLETED RUE AAROM EXS AND MURRAYE PROM EXS FOR NEURAL RE EDUCATION. PT REQUIRED MOD A WITH HYGIENE TASK. THANK YOU, LAZ LANGFORD/Gonzalez
[2017-08-28 19:00] VITALS: BP 128/56
--- NOTE | 2017-08-29 00:57 | NUR ---
PATIENT RESTING WELL IN BED, RR, TURNED Q 2 HOURS. CALL LIGHT IN REACH
--- NOTE | 2017-08-29 02:25 | NUR ---
CALL LIGHT IN REACH. WILL CONTINUE WITH PLAN OF CARE. 86 SR ON TELEMETRY
--- NOTE | 2017-08-29 04:29 | NUR ---
PATIENT TURNED TO LEFT SIDE, CALL LIGHT IN REACH.
--- NOTE | 2017-08-29 07:06 | NUR ---
AM ROUNDS- PT'S FEEDING PUMP GOING OFF. FIXED PUMP AT THIS TIME. PT IN BED, WITH EYES CLOSED, AROUSES EASILY TO VOICE. RESP EVEN AND UNLABORED. CESPEDES DRAINING YELLOW URINE TO GRAVITY. NO IV ACCESS NOTED. BED LOW AND WHEELS LOCKED, BEDSIDE RAILS X2, AT BEDSIDE, CALL LIGHT IN REACH, NAD NOTED, WILL CONTINUE PLAN OF CARE.
--- NOTE | 2017-08-29 09:36 | NUR ---
AM MEDS CRUSHED AND GIVEN VIA PEG TUBE. PT UP TO CHAIR, AT THIS TIME. C/O OF HIS BOTTOM HURTING. REDNESS NOTED TO BOTTOM. NO RISIDUAL AT THIS TIME. INFOMRED PT THAT HE NEEDS TO SIT UP FOR A LITTLE WHILE. AT BEDSIDE, NAD NOTED, WILL CONTINUE TO MONITOR.
--- NOTE | 2017-08-29 09:40 | NUR ---
Patient Name: FAITH MONTANO Encounter No: [id number] : 1930 Primary Insurance: HUMANA CHOICE PPO MCR ADVANT Anticipated DC Date: 08-29-2017 Planned Disposition: Fpc Facility External Planned Provider: [facility], LONG TERM CARE MEDICAID BED DCP follow-up note: CM CALLED MAYLIN, , LEFT MESSAGE ASKING FOR UPDATE ON PLACEMENT EFFORTS; CM FAXED UPDATE TO MAYLIN, CLINICAL LIAISON FOR THE [facility], AT [phone], REQUESTED RESUBMISSION TO INSURANCE FOR REHAB AUTHORIZATION PT IS PARTICIPATING WITH SPEECH AND PHYSICAL THERAPY. CM MET WITH PT'S SPOUSE IN ROOM, WHO REPORTS THAT SHE HAS NOT PROVIDED LIFE INSURANCE INFORMAITON TO THE [facility] SHE HAS A POLICY ON HERSELF, NOT THE PATIENT; SHE HAS SCHEDULED A MEETING WITH THE [facility] SENIOR SSIS DEVELOPER FOR NEXT WEEK. SPOUSE REPORTS NOT HEARING FROM THE [facility] AT ALL. CM INFORMED SPOUSE THAT PT HAS BEEN READY FOR DISCHARGE FOR THE PAST WEEK AND ARRANGEMENTS NEED TO BE COMPLETED THE CARE BEING PROVIDED NOW CAN BE DONE AT THE [facility]. SPOUSE REPORTS SHE IS STILL HOPEFUL THAT THE PA WILL PROVIDE REHAB BENEFITS TO PT AND HAS CONTACTED A [place] HYDROELECTRIC PRODUCTION MANAGER AT THE [facility] TO ASSIST. CM ASKED THAT PT'S SPOUSE CHECK WITH THE [facility] REGARDING PLACEMENT, SHE STATES SHE WILL TRY TO CONTACT CHANDAN AT THE [facility]. CM INFORMED SPOUSE THAT CM IS WAITING A CALL BACK ALSO FROM THE [facility] CLINICAL LIAISON WHO HAS PREVIOUSLY INFORMED THAT THE [facility] WILL NOT ACCEPT PT UNTIL THE [facility] HAS BEEN ARRANGED TO PAY FOR PT'S CARE. SPOUSE REPORTS UNDERSTANDING. CM WAITING PT'S SPOUSE TO COMPLETE FINANCIAL ARRANGEMENTS FOR ADMISSION TO THE [facility] FOR HALF-WAY CARE. YOLI TORRES, CASE MANAGEMENT
[2017-08-29 10:22] VITALS: BP 122/58
--- NOTE | 2017-08-29 11:44 | NUR ---
BLOOD SUGAR OF 265, 16UNITS OF HUMALOG GIVEN PER S/S. PT IN BED, DENIES ANY NEEDS AT THIS TIME. NO FAMILY AT BEDSDIE, NAD NOTED, CALL LIGHT IN REACH, WILL CONTINUE TO MONITOR.
[2017-08-29 12:08] VITALS: BP 112/59
--- NOTE | 2017-08-29 13:36 | NUR ---
FEEDING TUBE TUBING CHANGED, 2 CANS OF GLUCERNA 1.0 ADDED AT THIS TIME. REPOSITONED PT TO LEFT SIDE, PT DENIES ANY NEEDS AT THIS TIME. NO FAMILY AT BEDSIDE, CALL LIGHT IN REACH, NAD NOTED, WILL CONTINUE TO MONITOR.
[2017-08-29 15:26] VITALS: BP 115/54
--- NOTE | 2017-08-29 17:06 | NUR ---
NEW 22G IV STARTED BY CARY MUÑOZ X1 STICK. PT TOLERATED PROCEDURE WELL. RECIEVED CALL BACK FROM DR. GREGG, WHO STATED TO TRY TO GET AN IV ON PT AND PUT IN CONSULT FOR PICC LINE FOR RESIDENTIAL ANTIBIOTICS.
--- NOTE | 2017-08-29 17:22 | NUR ---
IVBP LEVAQUIN HUNG AT THIS TIME TO INFUSE TO RT AC. PT RESPOSTIONED IN BED. DENIES ANY NEEDS AT THIS TIME. CALL LIGHT IN REACH, NAD NOTED, WILL CONTINUE TO MONITOR.
--- NOTE | 2017-08-29 17:35 | NUR ---
BLOOD SUGAR OF 100, NO COVERAGE NEEDED PER S/S. 5CC RESIDUAL AT THIS TIME. PT DENIES ANY NEEDS AT THIS TIME. CALL LIGHT IN REACH, NAD NOTED.
--- NOTE | 2017-08-29 19:13 | NUR ---
PATIENT IS SLEEPING IN BED, RR, SR ON MONITOR, CALL LIGHT IN REACH. LYING ON LEFT SIDE AT THIS TIME, WILL TURN Q 2 HOURS.
[2017-08-29 20:00] VITALS: BP 114/73
--- NOTE | 2017-08-29 23:52 | NUR ---
PATIENT RESTING WELL IN BED, TURNED TO RIGHT SIDE AT THIS TIME. DENIES NEEDS OR PAIN AT THIS TIME. ORAL CARE DONE. CALL LIGHT IN REACH.
--- NOTE | 2017-08-30 02:15 | NUR ---
PATIENT TURNED ONTO LEFT SIDE, RESTING WELL. CALL LIGHT IN REACH
[2017-08-30 04:00] VITALS: BP 135/64
--- NOTE | 2017-08-30 05:40 | NUR ---
LYING IN BED WITH CALL LIGHT IN REACH. WILL CONTINUE WITH PLAN OF CARE.
[2017-08-30 05:54] LABS: BASOPHILS 0.1 % (0-2); EOSINOPHILS 0.2 % (0-7); HEMATOCRIT 28.3 % (42.0-54.0); HEMOGLOBIN 9.3 g/dL (13.5-17.5); IMMATURE GRANULOCYTES 4.3 % (0-5); LYMPHOCYTES 22.8 % (15-50); MCH 28.4 pg (26.0-34.0); MCHC 32.9 g/dL (31.0-37.0); MCV 86.3 fL (80.0-100.0); MEAN PLATELET VOLUME 8.8 fL (7.4-10.4); MONOCYTES 9.8 % (2-11); NEUTROPHILS 62.8 % (40-80); PLATELET COUNT 162 10x3/uL (130-400); RBC 3.28 10x6/uL (4.20-6.10); RDW 15.9 % (11.5-14.5); WBC 8.5 10x3/uL (4.8-10.8)
[2017-08-30 06:17] LABS: CALC OSMOLALITY 275 mosm/kg (275-300); CALCIUM 8.4 mg/dL (8.5-10.1); CARBON DIOXIDE 28.2 mmol/L (21.0-32.0); CHLORIDE - SERUM 101 mmol/L (98-107); CREATININE - SERUM 0.8 mg/dL (0.6-1.3); GLUCOSE 176 mg/dL (74-106); MAGNESIUM - SERUM 1.9 mg/dL (1.8-2.4); POTASSIUM - SERUM 4.2 mmol/L (3.5-5.1); SODIUM 135 mmol/L (136-145); UREA NITROGEN 19 mg/dL (7-18); eGFR NON AFRICAN AMERICAN > 90 mL/min (90-120)
[2017-08-30 08:00] VITALS: BP 136/63
--- NOTE | 2017-08-30 08:02 | NUR ---
ASSESSMENT DONE. DENIES NEEDS
--- NOTE | 2017-08-30 08:52 | NUR ---
RESTS IN BED. TF INFUSING. AT BS. CALL LIGHT IN REACH. WILL CONT. PLAN OF CARE.
--- NOTE | 2017-08-30 10:35 | CN ---
PATIENT NAME:FAITH DUBOIS MEDICAL RECORD: [id number] : 34 LOCATION:.[facility].2128 ADMIT DATE: 08/09/17 ACCOUNT: [id number] CONSULTING PHYSICIAN: FLASH GREGG MD REFERRING PHYSICIAN: MILY OLIVER MD DATE OF CONSULTATION: 08/29/2017 CONSULT REQUESTING PHYSICIAN: Demi Lee DO REASON FOR CONSULTATION: Bilateral pneumonia. HISTORY OF PRESENT ILLNESS: Mr. Dubois is an 87-year-old gentleman who has a history of aspiration pneumonia and dysphagia, now he is status post PEG tube placement. He is n.p.o. The patient had a chest radiograph on 08/27/17, which showed worsening pneumonia and some improvement on the other side. The patient is a very poor historian. The history was taken by talking to the patient's as well as reviewing the patient's notes. REVIEW OF SYSTEMS: As in history of present illness. PAST MEDICAL HISTORY: 1. History of cerebrovascular accident. 2. History of dysphagia. 3. History of skin cancer. 4. Gastroesophageal reflux disease. PAST SURGICAL HISTORY: 1. Appendectomy. 2. Status post PEG tube placement. 3. Back surgery. 4. Tonsillectomy. 5. Ear reconstruction surgery. ALLERGIES: He is allergic to CODEINE. MEDICATIONS: Yo que Vos was reviewed. PERSONAL AND SOCIAL HISTORY: The patient is . He lives with his . FAMILY HISTORY: Unknown. PHYSICAL EXAMINATION: GENERAL: Now, the patient is lying comfortably in bed. He is not in acute distress. VITAL SIGNS: The blood pressure is 112/59, pulse is 74, respirations 16, temperature 97.7, and SPO2 is 97% on room air. HEENT: Conjunctivae are pink. Sclerae nonicteric. NECK: Neck is supple. No JVD. CHEST: There are basal crackles. No wheezing. HEART: Rhythm regular, normal sound, no murmur. ABDOMEN: Abdomen is soft. Bowel sounds present. No hepatosplenomegaly. The PEG tube is in place. RECTAL: Deferred. EXTREMITIES: No cyanosis, no clubbing, no pedal edema. CENTRAL NERVOUS SYSTEM: The patient is awake, but he is poorly communicative. CONSULT REPORT [id number] [facility]AT[facility] DATA AND DIAGNOSTIC STUDIES: Chest radiograph on 08/27/17, there is a slight worsening of the right lower lobe pneumonia and there is improvement of the left lower lobe pneumonia. There are stable dense in the superior to the right hilum. There is stable small bilateral pleural effusion. OTHER LABORATORY DATA: CBC: The WBC is 8.3, hemoglobin 10, hematocrit 31.8, and platelet count 161. Chemistry: Sodium is 137, potassium is 4.2, BUN is 20, and creatinine is 0.7. IMPRESSION: 1. Bilateral pneumonia, most likely hospital-acquired pneumonia. 2. Dysphagia, status post PEG tube placement. Doubt aspiration. 3. Gastroesophageal reflux disease. 4. Bilateral small pleural effusion. 5. History of aspiration pneumonia. 6. History of cerebrovascular accident. RECOMMENDATION: I will start him on Levaquin, cefepime, and vancomycin to cover for the hospital-acquired pneumonia. Followup labs and chest radiograph. Continue the PEG tube feedings. Dr. Lee, thank you for involving me in the care of Mr. Dubois. TRANSINT:[id number] Voice Confirmation ID: [id number] DOCUMENT ID: [id number] FLASH GREGG MD at 1035 CC: DEMI LEE DO [id number] DICTATION DATE: 08/29/17 1508 DECISION SCIENCE ANALYST: 08/29/17 1529 ADM IN [facility] [address] [place] [address]
[2017-08-30 12:00] VITALS: BP 123/50
--- NOTE | 2017-08-30 13:29 | NUR ---
Nutrition Follow Up: Pt undergoing procedure at the time of RD visit. Spoke with nursing who reported that TF was @ 60 ml/hr. Asked nursing to increase TF to goal rate of 75 ml/hr. Nursing agreed and stated pt is tolerating TF. +BM 08/29/17. Wt stable. Meds and labs reviewed. Nursing to increase TF to goal rate. H2O flushes 15 ml/hr. RD following.
--- NOTE | 2017-08-30 16:47 | NUR ---
Patient Name: FAITH MONTANO Encounter No: [id number] : 1930 Primary Insurance: [employer] CHOICE PPO MCR ADVANT Anticipated DC Date: 08-29-2017 Planned Disposition: Custodial Facility External Planned Provider: [facility], MEDICARE REHAB BED DCP follow-up note: CM RECEIVED CALL FROM MAY[facility], [facility]IN[facility]. [facility] CANNOT MEET MRS. MONTANO'S NEEDS AND CM WAS ADVISED TO SEEK PT'S PLACEMENT ELSEWHERE. CM MET WITH PT'S SPOUSE IN ROOM, ADVISED OF ABOVE. OPTIONS DISCUSSED. SPOUSE REPORTS SHE MAY TAKE PT HOME, CM PROVIDED HOME ASSISTANCE AGENCIES THAT SHE MAY HIRE PRIVATELY. SPOUSE THEN REPORTS SHE WANTS TO THINK ABOUT OTHER NURSING FACILITIES; NOT AN OPTION WERE [facility], [employer] OR [facility]. LISTING DISCUSSED, SHE DID NOT WANT TO MAKE A DECISION NOW AND WILL CONSIDER OPTIONS. CM CALLED HAN AT [facility], , EXT 114; HAN DEALS WITH Mobile Location, IP ACCOUNTS AND REPORTS THAT THE [facility], ONCE ESTABLISHED, IS NOT REVOKABLE. IF PT DID GO HOME, THE ACCOUNT COULD BE USED FOR PT'S CARE EXPENSES AND THE SPOUSE MAY GET A LIVING ALLOWANCE BASED ON PT'S INCOME, THE SPOUSES INCOME AND THEIR EXPENSES. CM NOTIFIED PT'S SPOUSE WHO REPORTS SHE IS NOT SIGNING FOR A [employer] [facility]. CM NOTIFIED HER THAT MEDICAID IS NOT AN OPTION WITHOUT THE [facility]. SPOUSE REPORTED UNDERSTANDING. PT'S SPOUSE ASKED FOR REFERRAL TO BE SENT TO [facility] FOR REHAB SERVICES; SPOUSE CONTINUES TO REPORT THAT SHE IS HOPEFUL THE MA WILL FIND PT TO BE 100% DISABLED AND PROVIDE SOME TYPE OF REHAB SERVICES. CM DISCUSSED NEED FOR OTHER CHOICES OF SENIOR LIVING IN EVENT [facility] DECLINES PT, SPOUSE WANTS TO WAIT AND SEE WHAT [facility] SAYS. CM PROVIDED PT'S SPOUSE WITH CARD TO [facility] THAT PROVIDES FREE FIRST LEGAL CONSULTATION. CM CALLED [facility], , SPOKE TO RONAL AND PROVIDED REFERRAL INFORMATION; RONAL REPORTS NO BED AVAILABLE FOR PT. CM CALLED PT'S SPOUSE SHE WAS NOT IN ROOM. CM NOTIFIED THAT [facility] DECLINED, DISCUSSED AVAILABILITY OF OTHER SENIOR LIVING FACLITIES; SPOUSE DOES NOT WANT FURTHER SENIOR LIVING FACILITY REFERRALS SENT OUT. PT'S SPOUSE REPORTS SHE NOW IS THINKING OF TAKING PT HOME, IS CHECKING WITH [facility] REGARDING HAVING HELP WITH PT AT HOME; SHE HAS THE PERSONAL CARE AGENCY LISTING PROVIDED BY CM. SPOUSE REPORTS SHE CAN PROVIDE MORE REHAB TO PT AT HOME THAN IN ASSISTED CARE AT THE [facility]. CM DISCUSSED HOME HEALTH SERVICES, SPOUSE ASKED CM TO LEAVE LISTING IN ROOM. CM LEFT HOME HEALTH LISTING IN ROOM REQUESTED. MYKE ENRIQUEZ NOTIFIED. PT'S SPOUSE REPORTS PLAN TO TAKE PT HOME, POSSIBLY WITH HOME HEALTH SERVICES. CM TO ARRANGE HOME SERVICES ORDERED, WILL FOLLOW AND ASSIST NEEDED. Brian Templeton, CASE MANAGEMENT
[2017-08-30 18:02] VITALS: BP 149/67
--- NOTE | 2017-08-30 18:23 | NUR ---
WITHOUT CHANGES OR DISTRESS NOTED AT THIS TIME. AT SIDE
[2017-08-30 20:00] VITALS: BP 155/73
--- NOTE | 2017-08-30 21:54 | NUR ---
PT RESTING WITH EYES CLOSED. RESP EVEN AND REGULAR. SR UP X2, CALL LIGHT WITHIN REACH.
[2017-08-31] VITALS: BP 137/64
[2017-08-31 04:00] VITALS: BP 142/61
[2017-08-31 05:21] LABS: BASOPHILS 0.1 % (0-2); EOSINOPHILS 0.2 % (0-7); HEMATOCRIT 28.1 % (42.0-54.0); HEMOGLOBIN 9.1 g/dL (13.5-17.5); IMMATURE GRANULOCYTES 3.8 % (0-5); LYMPHOCYTES 23.4 % (15-50); MCH 27.7 pg (26.0-34.0); MCHC 32.4 g/dL (31.0-37.0); MCV 85.7 fL (80.0-100.0); MEAN PLATELET VOLUME 8.6 fL (7.4-10.4); MONOCYTES 11.2 % (2-11); NEUTROPHILS 61.3 % (40-80); PLATELET COUNT 144 10x3/uL (130-400); RBC 3.28 10x6/uL (4.20-6.10); WBC 8.8 10x3/uL (4.8-10.8)
[2017-08-31 05:37] LABS: CALC OSMOLALITY 277 mosm/kg (275-300); CALCIUM 8.8 mg/dL (8.5-10.1); CARBON DIOXIDE 27.8 mmol/L (21.0-32.0); CHLORIDE - SERUM 102 mmol/L (98-107); CREATININE - SERUM 0.7 mg/dL (0.6-1.3); GLUCOSE 177 mg/dL (74-106); POTASSIUM - SERUM 4.2 mmol/L (3.5-5.1); SODIUM 136 mmol/L (136-145); UREA NITROGEN 19 mg/dL (7-18); VANCOMYCIN - TROUGH 15.3 ug/mL (10.0-20.0); eGFR NON AFRICAN AMERICAN > 90 mL/min (90-120)
--- NOTE | 2017-08-31 07:15 | NUR ---
REPORT RECEIVED. RR EVEN AND UNLABORED, FAMILY AT BEDSIDE. TURNED PT X2 ASSIST, PTS SPEECH IS DIFFICULT TO UNDERSTAND AT TIMES. I ASK HIM YES AND NO QUESTIONS TO WHICH HE NODS HIS HEAD OR SHAKES HIS HEAD. PT IS ALERT AND ORIENTED X3. CAN UNDERSTAND CERTAIN ASPECTS OF SPEECH. I ATTEMPTED TO PLACE SCDS ON PT TO WHICH HE SAID "NO!" I ASKED HIM IF I COULD PLACE THEM ON HIM AFTER BREAKFAST TO WHICH HE AGREED. PT DENIES FURTHER NEEDS, WILL CTM.
[2017-08-31 08:16] VITALS: BP 160/52
[2017-08-31 11:23] VITALS: BP 147/68
--- NOTE | 2017-08-31 11:25 | NUR ---
CHECK RESIDUAL ON PTS PEG TUBE. LESS THAN 1ML NOTED UPON ASPIRATION. GAVE PTS MEDS, WILL CTM.
--- NOTE | 2017-08-31 15:41 | NUR ---
RESIDUAL CHECKED, 0 MLS NOTED. CHANGED FEEDING TUBING, TIMED AND DATED, WILL CTM.
[2017-08-31 15:46] VITALS: BP 126/50
--- NOTE | 2017-08-31 18:13 | NUR ---
PT RESTING QUIETLY, RR EVEN AND UNLABORED. PT REPOSITIONED X2 ASSIST. PT DENIES FURTHER NEEDS AT THIS TIME. WILL GIVE REPORT ON PT CONDTION FOR THE DAY.
[2017-09-01] VITALS: BP 137/63
[2017-09-01 06:37] LABS: BASOPHILS 0.1 % (0-2); EOSINOPHILS 0.7 % (0-7); HEMATOCRIT 27.8 % (42.0-54.0); HEMOGLOBIN 9.1 g/dL (13.5-17.5); IMMATURE GRANULOCYTES 4.5 % (0-5); LYMPHOCYTES 18.4 % (15-50); MCH 27.8 pg (26.0-34.0); MCHC 32.7 g/dL (31.0-37.0); MONOCYTES 10.8 % (2-11); NEUTROPHILS 65.5 % (40-80); PLATELET COUNT 156 10x3/uL (130-400); RBC 3.27 10x6/uL (4.20-6.10); RDW 15.8 % (11.5-14.5); WBC 7.5 10x3/uL (4.8-10.8)
[2017-09-01 07:01] LABS: CALC OSMOLALITY 276 mosm/kg (275-300); CALCIUM 8.7 mg/dL (8.5-10.1); CARBON DIOXIDE 26.9 mmol/L (21.0-32.0); CHLORIDE - SERUM 101 mmol/L (98-107); CREATININE - SERUM 0.8 mg/dL (0.6-1.3); GLUCOSE 160 mg/dL (74-106); MAGNESIUM - SERUM 1.9 mg/dL (1.8-2.4); POTASSIUM - SERUM 3.9 mmol/L (3.5-5.1); SODIUM 136 mmol/L (136-145); UREA NITROGEN 18 mg/dL (7-18); eGFR NON AFRICAN AMERICAN > 90 mL/min (90-120)
--- NOTE | 2017-09-01 07:34 | NUR ---
AM ROUNDING- RECEIVED REPORT FROM HASHER OPERATOR NURSE ADRI. PT IS CURRENTLY LAYING IN BED ON BACK ON FIRST STEP OVERLAY MATTRESS WITH EYES OPEN. PT HAS GARBLED SPEECH THAT IS HARD TO UNDERSTAND. IS NOW AT BEDSIDE. ON ROOM AIR. ON MONITOR SHOWING ST, HR 101 WITH FIRST DEGREE BLOCK (PER KRISTOPHER IN TELEMETRY). IV SEEN TO LEFT MIDLINE WITH NS RUNNING AT KVO. CESPEDES CATHETER SEEN. PEG TUBE WITH TUBE FEEDINGS SEEN WITH GLUCERNA RUNNING AT 75CC/HR WITH WATER FLUSHES AT 15CC/HR. NO NEED AT THIS CURRENT TIME. WILL CONTINUE TO MONITOR AND CONTINUE WITH PLAN OF CARE.
--- NOTE | 2017-09-01 07:37 | NUR ---
RECEIVED CALL FROM JAEL IN XRAY. JAEL STATES THAT SHE IS WONDERING IF PT IS HAVING THORACENTESIS TODAY. I INFORMED JAEL THAT I DO NOT HAVE ORDERS FOR THORACENTESIS. JAEL STATES THEY CALLED DR. STARKS YESTERDAY REGARDING THORACENTESIS (PER JAEL STARKS WOULD BE THE DOCTOR DOING PROCEDURE) AND DR. STARKS STATES HE WOULD HAVE TO LOOK INTO IT.
[2017-09-01 08:00] VITALS: BP 147/69
[2017-09-01 12:00] VITALS: BP 135/63
--- NOTE | 2017-09-01 14:12 | NUR ---
CALLED XRAY TO SPEAK WITH JAEL. LEFT MESSAGE FOR HER REGARDING ORDER/CONSENTS FOR PTS CT THORACENTESIS TOMORROW DUE TO JAEL BEING THE PERSON WHO SPOKE WITH REGARDING PROCEDURE. WILL AWAIT CALLBACK.
--- NOTE | 2017-09-01 14:48 | NUR ---
PER NIA CASE, [facility] TO OBTAIN CONSENT FOR CT GUIDED THORACENTESIS WITH POSSIBLE MODERATE SEDATION PER DR. ODOM.
--- NOTE | 2017-09-01 15:03 | NUR ---
CALLED DIEGO IN RADIOLOGY TO CLARIFY WHAT SIDE THE THORACETHESIS IS TO BE PLACED ON THE CONSENT. SHE SAID THAT SHE DIDNT KNOW, SHE CHECKED AND REPORTED BACK TO ME "RIGHT SIDE". I TOLD HER THAT I WOULD RE-WRITE THE ORDER FOR THE CONSENT TO INCLUDE THIS.
[2017-09-01 16:00] VITALS: BP 121/53
--- NOTE | 2017-09-01 16:02 | NUR ---
PTS SIGNED CONSENTS FOR PTS PROCEDURE TOMORROW (PT UNABLE TO SIGN AT THIS TIME). PT DID MOUTH CARE BY HIMSELF. LIP MOISTURIZER APPLIED TO LIPS. PT GIVEN MYLICON FOR STOMACH PAIN. RESIDUALS TO TUBE FEEDING CHECKED PRIOR TO GIVING MEDICATIONS WHICH IS 5CC. NO FURTHER NEED AT THIS TIME. WILL CONTINUE TO MONITOR.
--- NOTE | 2017-09-01 17:49 | NUR ---
PT IS CURRENTLY SITTING UP IN BED WITH EYES OPEN RESTING. ANDRIY ONEIL AND I PULLED PT UP IN BED. ANDRIY ONEIL PERFORMED CESPEDES CARE ON PT. CESPEDES CATHETER EMPTIED. NO NEED AT THIS CURRENT TIME. WILL CONTINUE TO MONITOR.
[2017-09-01 20:00] VITALS: BP 136/63
[2017-09-02] VITALS (7 sets, daily range): BP systolic 114–155; BP diastolic 58–75
[2017-09-02 06:05] LABS: BASOPHILS 0.2 % (0-2); EOSINOPHILS 0.4 % (0-7); HEMATOCRIT 29.2 % (42.0-54.0); HEMOGLOBIN 9.3 g/dL (13.5-17.5); IMMATURE GRANULOCYTES 4.2 % (0-5); LYMPHOCYTES 24.8 % (15-50); MCHC 31.8 g/dL (31.0-37.0); MCV 84.9 fL (80.0-100.0); MEAN PLATELET VOLUME 9.1 fL (7.4-10.4); MONOCYTES 10.1 % (2-11); NEUTROPHILS 60.3 % (40-80); PLATELET COUNT 170 10x3/uL (130-400); RBC 3.44 10x6/uL (4.20-6.10); RDW 15.8 % (11.5-14.5); WBC 9.3 10x3/uL (4.8-10.8)
[2017-09-02 06:20] LABS: CALC OSMOLALITY 272 mosm/kg (275-300); CALCIUM 8.6 mg/dL (8.5-10.1); CARBON DIOXIDE 27.5 mmol/L (21.0-32.0); CHLORIDE - SERUM 100 mmol/L (98-107); CREATININE - SERUM 0.8 mg/dL (0.6-1.3); GLUCOSE 141 mg/dL (74-106); MAGNESIUM - SERUM 1.7 mg/dL (1.8-2.4); POTASSIUM - SERUM 4.1 mmol/L (3.5-5.1); SODIUM 135 mmol/L (136-145); UREA NITROGEN 16 mg/dL (7-18); eGFR NON AFRICAN AMERICAN > 90 mL/min (90-120)
[2017-09-02 06:38] LABS: INR 1.19 (0.85-1.17); PROTIME 14.9 SECONDS (11.6-15.0)
--- NOTE | 2017-09-02 09:22 | NUR ---
[address] FOR THORACENSTIS.
--- NOTE | 2017-09-02 10:36 | NUR ---
Patient Name: FAITH MONTANO Encounter No: [id number] : 1930 Primary Insurance: HU[employer]NA CHOICE PPO MCR ADVANT Anticipated DC Date: 08-29-2017 Planned Disposition: Home with Home Health External Planned Provider: [facility] DCP follow-up note: CM RECEIVED HOME HEALTH CHOICE LETTER SIGNED BY MRS. MONTANO INDICTING [facility] PROVIDER OF CHOICE. CM SPOKE TO MRS. MONTANO WHO REPORTS SHE WILL BE ABLE TO CARE FOR PT AT HOME, HAS OBTAINED A BEDSIDE COMMODE AND WALKER FROM THE [facility] AND NEEDS A HOSPITAL BED AND TUBE FEEDING SUPPLIES / FOOD ARRANGED AND SHE WILL BE READY TO TAKE PT HOME. CM EXPLAINED THAT HOME HEALTH WOULD HAVE TO BE WILLING TO ACCEPT AND INSURANCE HAS TO AGREE TO PAY FOR THE SERVICES; ALSO, THE DOCTOR HAS TO AGREE WITH DISCHARGE PLAN, MRS. MONTANO ASKED WHAT DOCTOR, CM EXPLAINED THAT DR. ESCOTO WILL BE SEEING PT THIS WEEK IN HOSPITAL. PT'S SPOUSE AGAIN REPORTS PLAN TO TAKE PT HOME AT DISCHARGE AND CAN TAKE HIM ONCE SHE HAS FEEDING EQUIPMENT / SUPPLIES [facility] BED DELIVERED TO HER HOME. CM WILL ARRANGE HOME HEALTH, HOSPITAL BED, TUBE FEEDING EQUIPMENT AND SUPPLIES WITH PHYSICIAN AGREEMENT AND ORDERS. Brian Templeton, CASE MANAGEMENT
[2017-09-02 11:58] LABS: PROTEIN - BODY FLUID 1.4 G/DL
[2017-09-02 13:15] LABS: MACROPHAGES BF 1 %; NEUT - BF 92 %
--- NOTE | 2017-09-02 16:18 | NUR ---
PT HAS BEEN TO CT FOR THORACENTISIS. ONLY 20 CC OBTAINED. PT HAS BEEN ASLEEP ALL DAY AND BEEN TURNED Q2. PEG FEEDS RESUMED. SITE OF THORACENTISIS CLEAN AND DRY.
--- NOTE | 2017-09-02 16:20 | NUR ---
Patient Name: FAITH MONTANO Encounter No: [id number] : 1930 Primary Insurance: HUMANA CHOICE PPO MCR ADVANT Anticipated DC Date: 08-29-2017 Planned Disposition: Home with Home Health External Planned Provider: [facility] DCP follow-up note: CM RECEIVED ORDERS TO ASSIST WITH ARRANGING HOSPITAL BED AND TUBE FEEDINGS FOR PT AT HOME. CM SPOKE TO PT'S SPOUSE WHO HAS NO PREFERENCE ON PROVIDER FOR THE EQUIPMENT; CM CALLED [facility], , SPOKE TO SANJANA WHO REPORTS ABILITY TO PROVIDE HOSPITAL BED AND TUBE FEEDING SUPPLIES; SANJANA REPORTS PT WILL NEED HOME HEALTH TO MANAGE TUBE FEEDINGS [facility] WILL NOT. CM FAXED REFERRAL TO [facility], . CM CALLED [facility], , SPOKE TO YOSEF WHO REPORTS NURSING AVAILABILITY OF SATURDAY OR SATURDAY FOR ADMIT AT HOME, ASKED CM TO FAX REFERRAL TO [facility] AND ADVISED THAT IF SOONER ADMIT IS NEEDED, TO SPEAK TO PT'S SPOUSE REGARDING ALTERATIVE COMPANY. CM FAXED REFERRAL TO [facility] AT [phone]. CM CALLED PT'S SPOUSE AT HOME, SPOKE TO DOROTEO, DISCUSSED ABOVE; DOROTEO WOULD LIKE TO STAY WITH [facility] IF POSSIBLE, BUT IF THEY ARE NOT ABLE TO PROVIDE SERVICE REQUESTED, SHE WOULD CHOSE [facility]. CHOICE LETTER COMPLETED VIA PHONE. CM WAITING ARRANGMENT OF TUBE FEEDING SUPPLIES AND EQUIPMENT [facility] BED IN PT'S HOME BY [facility]. [facility] PLANS TO ACCEPT PT FOR HOME HEALTH SERVICES. CM WILL COMPLETE HOME HEALTH ARRANGEMENTS WITH HOME HEALTH ORDERS FROM PHYSICIAN. Brian Templeton, CASE MANAGEMENT
--- NOTE | 2017-09-02 19:00 | NUR ---
ROUNDING NOTE: AT THE CHANGE OF SHIFT, PT IS LAYING IN BED W/ HOB AT 30 DEGREES. TUBE FEED VIA PEG TUBE RUNNING AT 75CC/HR W/ 15CC/HR WATER FLUSH. PT HAD A RIGHT THORACENTESIS TODAY W/ 20CC OF FLUID REMOVED. SITE C/D/I. PT REMAINS ON TELE, NSR. LEFT MIDLINE W/ NS RUNNING AT KVO. PT IS AWAKE AND ALERT, BUT UNABLE TO ASSESS ORIENTATION DUE TO APHASIA AND GARBLED SPEECH. WILL CONT TO MONITOR.
[2017-09-03 02:50] VITALS: BP 140/65
[2017-09-03 05:33] LABS: BASOPHILS 0.2 % (0-2); EOSINOPHILS 0.5 % (0-7); HEMATOCRIT 28.7 % (42.0-54.0); HEMOGLOBIN 9.2 g/dL (13.5-17.5); IMMATURE GRANULOCYTES 4.5 % (0-5); LYMPHOCYTES 14.7 % (15-50); MCH 27.1 pg (26.0-34.0); MCHC 32.1 g/dL (31.0-37.0); MCV 84.7 fL (80.0-100.0); MEAN PLATELET VOLUME 8.9 fL (7.4-10.4); MONOCYTES 10.3 % (2-11); NEUTROPHILS 69.8 % (40-80); PLATELET COUNT 178 10x3/uL (130-400); RBC 3.39 10x6/uL (4.20-6.10); RDW 15.7 % (11.5-14.5); WBC 8.6 10x3/uL (4.8-10.8)
[2017-09-03 05:35] VITALS: BP 141/66
[2017-09-03 05:44] LABS: CALC OSMOLALITY 274 mosm/kg (275-300); CALCIUM 8.4 mg/dL (8.5-10.1); CARBON DIOXIDE 26.9 mmol/L (21.0-32.0); CHLORIDE - SERUM 103 mmol/L (98-107); CREATININE - SERUM 0.7 mg/dL (0.6-1.3); MAGNESIUM - SERUM 1.8 mg/dL (1.8-2.4); POTASSIUM - SERUM 3.9 mmol/L (3.5-5.1); SODIUM 137 mmol/L (136-145); UREA NITROGEN 17 mg/dL (7-18); VANCOMYCIN - RANDOM 23.5 ug/mL (10.0-20.0); eGFR NON AFRICAN AMERICAN > 90 mL/min (90-120)
[2017-09-03 05:49] LABS: GLUCOSE 83 mg/dL (74-106)
--- NOTE | 2017-09-03 07:00 | NUR ---
AM ROUNDING DONE WITH NIGHT NURSE. PATIENT IS ON 1ST STEP OVERLAY MATTRESS, PULLED PATIENT UP IN THE BED AGAIN. BOTTOM IS SLIGHTLY RED. ON ROOM AIR. PATIENT IS DNR CODE STATUS. ON HEART MONITOR SHOWING SR, HR 73. LEFT ARM MIDLINE SEEN WITH NS INFUSING AT 10 CC/HR. PEG TUBE SEEN WITH GLUCERNA 1.0 INFUSING PER FOOD PUMP AT 75 CC/HR. CESPEDES CATH PATENT WITH YELLOW URINE. ON EP, LAB VALUES ARE NORMAL. PATIENT HAS ON BILATERAL SCD'S ORDERED. HOB UP AT 30 DEGREES. WILL MONITOR.
[2017-09-03 08:32] VITALS: BP 125/64
--- NOTE | 2017-09-03 09:51 | NUR ---
Patient Name: FAITH MONTANO Encounter No: [id number] : 1930 Primary Insurance: HUMANA CHOICE PPO MCR ADVANT Anticipated DC Date: 08-29-2017 Planned Disposition: Home with Home Health External Planned Provider: [facility] DCP follow-up note: CM RECEIVED CALL FROM [facility], , SPOKE TO YOSEF WHO REPORTS THEY DID NOT RECEIVE REFERRAL; CM LOCATED FAX CONFIRMATION, YOSEF ASKED CM TO FAX REFERRAL TO [facility] AND ADVISED THAT HE WILL LET CM KNOW TODAY IF THEY ARE ABLE TO ACCEPT PT. CM FAXED REFERRAL TO [facility] AT [phone]. CM CALLED PT'S SPOUSE AT HOME, SPOKE TO DOROTEO, OBTAINED CELL NUMBER OF [phone] FOR PROVIDERS TO CONTACT DOROTEO TO ARRANGE EQUIPMENT HOME DELIVERY AND SERVICES. CM RECEIVED CALL FROM SANJANA OF [facility], WHO REPORTS THEY DID NOT RECEIVE ORDER FOR HOSPTIAL BED. CM REFAXED ORDER WITH PTS' SPOUSE CELL NUMBER TO ARRANGE HOME DELIVERY OF HOSPITAL BED TODAY. CM RECEIVED CALL FROM [facility], , WHO REPORTS [facility] IS OUT OF NETWORK FOR PT'S SPECIFIC MANAGED MEDICARE POLICY. CM CALLED HUGO AT [facility], , WHO REPORT TO BE IN NETWORK AND CAN PROVIDE FEEDING EQUIPMENT AND SUPPLIES. CM FAXED REFERRAL TO [facility] AT [phone]. CM CALLED [facility] AT [phone], SPOKE TO RADHA WHO REPORTS THAT IT MAY TAKE UP TO 40 MINUTES ONCE THE FAX IS RECEIVED FOR A PROFILE CREATION; ONCE THIS IS DONE, THEY WILL BEGIN ORDER PROCESSING. CM NOTIFIED PT'S SPOUSE WHO HAS ARRIVED TO PT'S ROOM. CM ASKED PT'S SPOUSE IF SHE WAS INTERESTED IN HOSPICE CARE FOR PT AT HOME, SHE IS NOT. PT'S SPOUSE IS STILL WANTING HOME ARRANGEMENT OF HOME HEALTH FOR HOME REHAB SERVICES. IMPORTANT MESSAGE FROM MEDICARE PROVIDED AND EXPLAINED. CM WAITING ARRANGMENT OF TUBE FEEDING SUPPLIES AND EQUIPMENT BY [employer] AND HOSPITAL BED IN PT'S HOME BY [facility]. [facility] PLANS TO ACCEPT PT FOR HOME HEALTH SERVICES. CM WILL COMPLETE HOME HEALTH ARRANGEMENTS WITH HOME HEALTH ORDERS FROM PHYSICIAN. Brian Templeton, CASE MANAGEMENT
[2017-09-03 12:34] VITALS: BP 111/53
--- NOTE | 2017-09-03 13:20 | NUR ---
Nutrition follow-up: Pt was NPO for thoracentesis TF of Glucerna 1.0 @ 75 cc/hr is back on and at goal rate. Labs reviewed Wt: 170# Pt tolerating TF at goal rate. RDN following.
[2017-09-03 14:21] LABS: AFB SPECIMEN PROCESSING Concentration (())
[2017-09-03 16:31] VITALS: BP 126/62
--- NOTE | 2017-09-03 17:10 | NUR ---
POC GLUCOSE IS 120. NO COVERAGE WITH INSULIN PER SLIDING SCALE.
--- NOTE | 2017-09-03 17:52 | NUR ---
Patient Name: FAITH MONTANO Encounter No: [id number] : 1930 Primary Insurance: HUMANA CHOICE PPO MCR ADVANT Anticipated DC Date: 08-29-2017 Planned Disposition: Home with Home Health External Planned Provider: [facility] DCP follow-up note: CM RECEIVED CALL FROM [facility], SPOKE TO YOSEF WHO REPORTS THEY CAN ACCEPT PT FOR HOME HEALTH AND CAN ADMIT PT ON SATURDAY AT THE EARLIEST. [facility] WILL NEED HOME HEALTH ORDERS. AIMEE RECEIVED CALL FROM PT'S SPOUSE WHO REPORTED DELIVERY OF HOSPITAL BED AND IS WAITING ON PUMP DELIVERY OF 4:15PM. PT'S SPOUSE DOES NOT WANT TO USE A DIFFERENT HOME HEALTH COMPANY AND IS WILLING TO WAIT FOR SATURDAY FOR ADMISSION. PT'S SPOUSE WANTS PT TO DISCHARGE HOME TOMORROW. [facility] CALLED , LEFT MESSAGE REPORTING THEY WILL HAVE PUMP FOR FEEDING DELIVERED TODAY AND WILL HAVE GLUCERNA OVERNIGHTED FOR DELIVERY TOMORROW TO PT'S HOME. WILL NEED TO SEND ONE DAY SUPPLY OF GLUCERNA TO ENSURE TRANSITION. [facility] CONTACT NUMBER IS [phone]. PT'S SPOUSE REPORTS BEING READY TO ACCEPT PT AT HOME ON 09-04-17. REQUIRES DETAILED HOME HEALTH ORDERS TO FAX TO [facility] AT [phone], NOTIFY [facility] OF DISCHARGE AT [phone], HOME HEALTH TO ADMIT ON SATURDAY OF THIS WEEK. SEND ONE DAY SUPPLY OF GLUCERNA HOME WITH PT TO ALLOW TIME FOR FOOD TO ARRIVE. Brian Templeton, CASE MANAGEMENT
--- NOTE | 2017-09-03 18:22 | NUR ---
FAMILY MEMBERS AT BEDSIDE. PATIENT HAS A HEADACHE AND TYLENOL WAS GIVEN. WILL CONTINUE TO MONITOR.
--- NOTE | 2017-09-03 19:10 | NUR ---
ROUNDING NOTE: PT IS LAYING IN BED, AWAKE AND ALERT, BUT NONVERBAL W/ GARBLED SPEECH. PT HAS LEFT MIDLINE W/ NS @ KVO. BED ALARM ON. PT IS ON 1ST STEP OVERLAY MATTRESS. PEG TUBE FEEDING, GLUCERNA 1.0 @ 75CC/HR AND H20 FLUSH AT 15CC/HR. WILL CONT TO MONITOR.
[2017-09-03 20:00] VITALS: BP 123/58
[2017-09-04 04:00] VITALS: BP 123/58
--- NOTE | 2017-09-04 07:30 | NUR ---
PT'S AT THE BEDSIDE THIS MORNING. PLAN IS FOR PT TO GO HOME TODAY WITH AND HOME HEALTH CARE. HAS HOSPITAL BED AND TUBE FEED SUPPLIES AT HOME. DAY SHIFT NURSE WILL HELP TO COORDINATE THE D/C.
--- NOTE | 2017-09-04 07:45 | NUR ---
AM ROUNDS COMPLETED. INTRODUCED MYSELF TO PT PRIMARY RN FOR TODAYS SHIFT. SHIFT ASSESSMENT COMPLETED. PT RESTING QUIETLY IN BED WITH AT BEDSIDE. RR NONLABORED ON RA. L.UPPER ARM MIDLINE CATH IN PLACE WITH DRSG CDI, BIOPATCH IN PLACE AND NS RUNNING KVO WITH SWAB CAPS IN USE. CESPEDES DRAINING TO GRAVITY OFF R.SIDE OF BED, STAT LOCK SECURED TO R.INNER THIGH, PATENT DRAINING CLEAR YELLOW URINE. PT ON OVERLAY AIR MATTRESS AND DENIES ANY DISCOMFORT AT THIS TIME. TUBE FEED IN PLACE GLUCERNA 1.0 @75ML/HR WITHOUT ANY ISSUES NOTED AT SITE. CL IN REACH, BED IN LOWEST, SIDE RAILS X2 AND SCDS IN PLACE BILAT. WILL CPOC.
[2017-09-04 08:00] VITALS: BP 129/63
--- NOTE | 2017-09-04 10:50 | NUR ---
THERAPY JUST ASSISTED PT INTO BEDSIDE CHAIR. PT SITTING UP WITH FAMILY AT BEDSIDE. DISCONNECTED PT FROM HIS FEEDING REQUESTED PT FAMILY R/T PT C/O GAS/ABDOMINAL PAINS. PROVIDED PT WITH PRN GAS MEDICATION WELL. NO CURRENT NEEDS AT THIS TIME. PT AND FAMILY HOPING TO TAKE HIM HOME TODAY. CL IN REACH. WILL CPOC.
[2017-09-04 11:51] VITALS: BP 115/56
[2017-09-04] MEDS ORDERED: MUCINEX DM ER1 EAC1 PO (13:45)
--- NOTE | 2017-09-04 14:08 | NUR ---
PT RESTING QUIETLY IN BED WITH EYES CLOSED. WAITING AT BEDSIDE AND INQUIRING ABOUT D/C STILL NO ORDERS. WILL DISCUSS WITH PRIMARY AND CPOC.
--- NOTE | 2017-09-04 14:42 | NUR ---
DISCHARGE ORDERS ARE NOW IN. DISCUSSED WITH FAMILY AND HE WILL BE AN AMBULANCE TRANSPORT HE IS UNABLE TO SIT UP FOR THE DURATION OF TRANSPORT. PT HAS HOME EQUIPMENT BUT WILL NEED SOME GLUCERNA 1.0 UNTIL HOME HEALTH BRINGS IT OUT. WILL SEND HOME WITH 10 CANS TO LAST UNTIL THEY ARE ABLE TO GET IT. WILL BEGIN DISCHARGE PAPERS NO FURTHER NEEDS AT THIS TIME.
[2017-09-04 15:25] LABS: FUNGUS STAIN Final report (())
--- NOTE | 2017-09-04 17:23 | NUR ---
D/C PTS L.UPPER ARM MIDLINE IV WITH CATHETER TIP FULLY INTACT. PTS BELONGINGS COLLECTED AND IS LEAVING TO MEET HIM AT THE HOUSE. CALLED [facility] FOR TRANSPORTATION AND SPOKE TO ASIA AND THEY ESTIMATED ABOUT AN HOUR WAIT. NO CURRENT NEEDS AT THIS TIME. DISCHARGE TEACHING PROVIDED AND PAPERS SIGNED. WILL CTM.
--- NOTE | 2017-09-04 17:25 | NUR ---
PTS REFUSED FLU AND PNUEMONIA VACC.
--- NOTE | 2017-09-04 17:52 | NUR ---
[facility] HERE FOR PT NOW. ASSISTED PT ON TO STRETCHER. NO FURTHER NEEDS, PT LEAVING AT THIS TIME.
[2017-09-29 15:08] LABS: FUNGUS MYCOLOGY CULTURE Final report (())
[2017-10-25 12:13] LABS: ACID FAST CULTURE Negative (()); ACID FAST SMEAR Negative (())
[2017-11-13] MEDS ORDERED: GLIPIZIDE10 MG PO (14:24)
[2017-11-13] MEDS ORDERED: GLUCOTROL 5 MG T5 MG PO (14:25)
[2017-11-13] MEDS ORDERED: TIROSINT50 MCG PO (14:27)
[2017-11-22] MEDS ORDERED: COZAAR25 MG PO (11:59)
== END 2017-09-04 17:56 | disposition home health service (06) | DRG 177 ==
LOC: D.ER 14:08 → D.M2 17:31
PROVIDERS: Emergency Medicine; Family Medicine; Internal Medicine Pulmonary Disease; Radiology Diagnostic Radiology; Surgery; ADMIT Family Medicine Adult Medicine
PROC: 0DH63UZ Insertion of Feeding Device into Stomach, Percutaneous Approach (ICD-10-PCS; principal; 2017-08-14 08:30)
DX: J69.0 Pneumonitis due to inhalation of food and vomit (principal); G93.41 Metabolic encephalopathy; G93.6 Cerebral edema; R53.2 Functional quadriplegia; J44.1 Chronic obstructive pulmonary disease with (acute) exacerbation; E87.0 Hyperosmolality and hypernatremia; E11.22 Type 2 diabetes mellitus with diabetic chronic kidney disease; I12.9 Hypertensive chronic kidney disease with stage 1 through stage 4 chronic kidney disease, or unspecified chronic kidney disease; N18.9 Chronic kidney disease, unspecified; I25.10 Atherosclerotic heart disease of native coronary artery without angina pectoris; I34.0 Nonrheumatic mitral (valve) insufficiency; D69.6 Thrombocytopenia, unspecified; E86.0 Dehydration; R00.0 Tachycardia, unspecified; K21.9 Gastro-esophageal reflux disease without esophagitis; R82.71 Bacteriuria; Z95.5 Presence of coronary angioplasty implant and graft; Z87.891 Personal history of nicotine dependence; Z86.73 Personal history of transient ischemic attack (TIA), and cerebral infarction without residual deficits

== ENCOUNTER 2017-09-11 12:35 | Emergency (ER) | payer MEDICARE ==
[2017-08-10 12:41] VITALS: BMI 21.7
[~2017-09-11 12:35] MED LIST changes: +CELEXA10 MG PO; +FLOMAX0.4 MG PO; +GAS-X80 MG PO; +LANTUS SOL100 UNIT/1 SC; +MUCINEX DM ER1 EAC1 PO
[2017-11-13] MEDS ORDERED: GLIPIZIDE10 MG PO (14:24)
[2017-11-13] MEDS ORDERED: GLUCOTROL 5 MG T5 MG PO (14:25)
[2017-11-13] MEDS ORDERED: TIROSINT50 MCG PO (14:27)
[2017-11-22] MEDS ORDERED: COZAAR25 MG PO (11:59)
== END 2017-09-11 15:00 | disposition home or self-care (01) ==
LOC: D.ER 12:35
DX: T17.908A Unspecified foreign body in respiratory tract, part unspecified causing other injury, initial encounter (principal); X58.XXXA Exposure to other specified factors, initial encounter; Y93.89 Activity, other specified; Y92.029 Unspecified place in mobile home as the place of occurrence of the external cause; E11.9 Type 2 diabetes mellitus without complications

== ENCOUNTER 2017-10-16 15:00 | Inpatient (IN) | payer OTHER, MEDICARE ==
[~2017-10-16] VITALS: Ht 177.8 cm; Wt 69.6 kg
[2017-10-16 17:43] LABS: BASOPHILS 0.1 % (0-2); EOSINOPHILS 0.1 % (0-7); HEMATOCRIT 33.9 % (42.0-54.0); HEMOGLOBIN 10.9 g/dL (13.5-17.5); IMMATURE GRANULOCYTES 1.7 % (0-5); LYMPHOCYTES 12.5 % (15-50); MCHC 32.2 g/dL (31.0-37.0); MCV 80.9 fL (80.0-100.0); MEAN PLATELET VOLUME 9.4 fL (7.4-10.4); MONOCYTES 9.9 % (2-11); NEUTROPHILS 75.7 % (40-80); PLATELET COUNT 178 10x3/uL (130-400); RBC 4.19 10x6/uL (4.20-6.10); RDW 16.4 % (11.5-14.5); WBC 14.4 10x3/uL (4.8-10.8)
[2017-10-16 17:54] LABS: ALBUMIN 2.4 g/dL (3.4-5.0); ALKALINE PHOSPHATASE 273 U/L (46-116); ALT (SGPT) 37 U/L (10-68); BILIRUBIN - TOTAL 0.45 mg/dL (0.2-1.3); CALC OSMOLALITY 283 mosm/kg (275-300); CALCIUM 9.8 mg/dL (8.5-10.1); CARBON DIOXIDE 28.3 mmol/L (21.0-32.0); CHLORIDE - SERUM 97 mmol/L (98-107); POTASSIUM - SERUM 4.4 mmol/L (3.5-5.1); PROTEIN - SERUM 7.2 g/dL (6.4-8.2); SODIUM 133 mmol/L (136-145); UREA NITROGEN 34 mg/dL (7-18); eGFR NON AFRICAN AMERICAN 75 mL/min (90-120)
[2017-10-16 17:57] LABS: GLUCOSE 277 mg/dL (74-106)
--- NOTE | 2017-10-16 18:43 | NUR ---
[facility] called, spoke to Shaniqua, who stated they don't have a bed for patient to transfer too. Patient placed on the list for transfer. Angella Nicole RN, CCM
--- NOTE | 2017-10-16 20:30 | NUR ---
PT ARRIVED TO MEDICAL SURGICAL II UNIT AT 2029, PT ALERT AND ORIENTED X 3.
[2017-10-16 21:35] VITALS: BP 145/64
--- NOTE | 2017-10-16 22:05 | NUR ---
COLLECTED URINE SAMPLE AND SENT IT TO LAB.
[2017-10-16 22:42] LABS: APPEARANCE HAZY (CLEAR); COLOR YELLOW (YELLOW); NITRITE NEGATIVE (NEGATIVE); SPECIFIC GRAVITY 1.025 (1.005-1.020)
[2017-10-16 22:43] LABS: BACTERIA MODERATE /hpf (NONE SEEN); BILIRUBIN NEGATIVE (NEGATIVE); GLUCOSE 500 mg/dL (NEGATIVE); KETONE NEGATIVE (NEGATIVE); PROTEIN TRACE mg/dL (NEGATIVE); UROBILINOGEN NORMAL (NORMAL); WHITE CELLS - URINE >50 /hpf (0-5); YEAST >1+ WITH HYPHAE /hpf (NONE SEEN)
--- NOTE | 2017-10-17 01:13 | NUR ---
PT HAS BEEN SCREAMING, AND ATIVAN GIVEN BY AINSLEY MUÑOZ.
[2017-10-17 01:16] VITALS: BP 141/68
[2017-10-17 05:39] VITALS: BP 134/64
[2017-10-17 06:23] LABS: CALC OSMOLALITY 277 mosm/kg (275-300); CALCIUM 9.6 mg/dL (8.5-10.1); CARBON DIOXIDE 26.8 mmol/L (21.0-32.0); CHLORIDE - SERUM 101 mmol/L (98-107); CREATININE - SERUM 0.8 mg/dL (0.6-1.3); POTASSIUM - SERUM 4.3 mmol/L (3.5-5.1); SODIUM 135 mmol/L (136-145); UREA NITROGEN 31 mg/dL (7-18); eGFR NON AFRICAN AMERICAN > 90 mL/min (90-120)
[2017-10-17 06:30] LABS: GLUCOSE 115 mg/dL (74-106)
[2017-10-17 06:33] LABS: BASOPHILS 0 % (0-2); EOSINOPHILS 0.1 % (0-7); HEMATOCRIT 29.2 % (42.0-54.0); HEMOGLOBIN 9.3 g/dL (13.5-17.5); IMMATURE GRANULOCYTES 1.2 % (0-5); LYMPHOCYTES 16.8 % (15-50); MCH 25.5 pg (26.0-34.0); MCHC 31.8 g/dL (31.0-37.0); MCV 80.2 fL (80.0-100.0); MEAN PLATELET VOLUME 9.4 fL (7.4-10.4); MONOCYTES 9.2 % (2-11); NEUTROPHILS 72.7 % (40-80); PLATELET COUNT 180 10x3/uL (130-400); RBC 3.64 10x6/uL (4.20-6.10); RDW 16.5 % (11.5-14.5); WBC 12.3 10x3/uL (4.8-10.8)
[2017-10-17 07:49] VITALS: BP 144/61
--- NOTE | 2017-10-17 08:00 | NUR ---
ASSESSMENT COMPLETED. DENIES ANY NEEDS. SR UP WITH CALL LIGHT IN REACH.LEFT AC WITH NS AT 75. PEG TUBE NOTED. CESPEDES CATH TO GRAVITY BAG. . WILL MONITOR
--- NOTE | 2017-10-17 08:43 | NUR ---
RESTS WITH EYES CLOSED. IV PATENT. AT BS. WILL CONT. PLAN OF CARE.
[2017-10-17 12:05] VITALS: BP 139/57
[2017-10-17 12:34] VITALS: Ht 177.8 cm; Wt 69.6 kg
[2017-10-17 15:45] VITALS: BP 122/66
--- NOTE | 2017-10-17 16:57 | NUR ---
ASSISTED KRISTOPHER RN WITH [employer] PUMP AND FEEDING. COMPLAINING ABOUT BEING HERE AND STATES AT HOME WITH HOME HEALTH HE WAS SWALLOWING APPLESAUCE AND WAITING ON A BARIUM SWALLOW EVALUATION, READ SPL NOTES AND THEY RECOMMENDED PT TO REMAIN NPO AND THEY WILL FOLLOW. NOT HAPPY AND WANTS ME TO [facility]. PAGED ANDREAS ENRIQUEZ AND WILL REQUEST TEST. NO FURTHER NEEDS.
--- NOTE | 2017-10-17 18:28 | NUR ---
LAYING QUIETLY. DOES YELL AT TIMES. PEG TUBE WITH GLUERSERNA 1.0 AT 75. NODISTRESS NOTED
--- NOTE | 2017-10-17 19:37 | NUR ---
PT YELLING OUT FOR HELP. WHEN I SPOKE WITH PT HE SAID HE WANTS TO GO HOME. I TALKED WITH PT AND HE HAS CALMED DOWN A BIT. HAS NS INFUSING AT 75 TO LEFT AC AND HAS GLUCERNA 1.0 FEEDING TO PEG TUBE. PT DENIES ANY NEEDS. ALARM ON AND ACTIVE. BED LOW AND CALL LIGHT IN REACH. WILL CPOC
--- NOTE | 2017-10-17 19:48 | NUR ---
REPOSTIONED PT. NS AT 75, FEEDING PUMP AT 75. PT DENIES ANY NEEDS. NO S/S OF DISTRESS. WILL CPOC
[2017-10-17 20:21] VITALS: BP 150/72
--- NOTE | 2017-10-17 21:45 | NUR ---
MEDS GIVEN VIA PEG TUBE.RESIDUAL 0ML PRIOR TO MEDS. PT REPOSTIONED. C/O BOTTOM. TYLENOL GIVEN PT DENIES ANY NEEDS. NO S/S OF DISTRESS WILL CPOC
--- NOTE | 2017-10-17 23:20 | NUR ---
REPOSITONED PT. DENIES ANY NEEDS. NO S/S OF DISTRESS. BED LOW AND CALL LIGHT IN REACH. ALARM ON AND ACTIVE WILL CPOC
--- NOTE | 2017-10-18 00:20 | NUR ---
PT TURNED AND REPOSITONED. NS INFUSING AT 75 TO LEFT AC. FEEDING PUMP INFUSING AT 75ML/HR WITH 15ML/HR FLUSH. PT DENIES ANY NEEDS. SCDS ON BILATERAL LOWER EXTREM. NO S/S OF DISTRESS. BED LOW AND CALL LIGHT IN REACH. ALARM ON AND ACTIVE. WILL CPOC
[2017-10-18 00:41] VITALS: BP 140/66
--- NOTE | 2017-10-18 02:00 | NUR ---
PT REPOSITIONED. DENIES ANY NEEDS. NO S/S OF DISTRESS. BED LOW AND CALL LIGHT IN REACH. ALARM ON AND ACTIVE. WILL CPOC
--- NOTE | 2017-10-18 03:37 | NUR ---
PT REPOSTIONED. DENIES NEEDS. NO S/S OF DISTRESS. WILL CPOC
[2017-10-18 04:29] VITALS: BP 143/64
[2017-10-18 06:01] LABS: BASOPHILS 0 % (0-2); EOSINOPHILS 0.2 % (0-7); HEMOGLOBIN 8.9 g/dL (13.5-17.5); IMMATURE GRANULOCYTES 1.7 % (0-5); LYMPHOCYTES 17.5 % (15-50); MCH 25.2 pg (26.0-34.0); MCHC 30.7 g/dL (31.0-37.0); MEAN PLATELET VOLUME 9.3 fL (7.4-10.4); MONOCYTES 9.1 % (2-11); NEUTROPHILS 71.5 % (40-80); PLATELET COUNT 159 10x3/uL (130-400); RBC 3.53 10x6/uL (4.20-6.10); RDW 16.4 % (11.5-14.5)
[2017-10-18 06:03] LABS: WBC 8.4 10x3/uL (4.8-10.8)
[2017-10-18 06:04] LABS: MCV 82.2 fL (80.0-100.0)
[2017-10-18 06:13] LABS: CALC OSMOLALITY 284 mosm/kg (275-300); CALCIUM 9.3 mg/dL (8.5-10.1); CARBON DIOXIDE 26.7 mmol/L (21.0-32.0); CHLORIDE - SERUM 102 mmol/L (98-107); CREATININE - SERUM 0.9 mg/dL (0.6-1.3); SODIUM 137 mmol/L (136-145); UREA NITROGEN 29 mg/dL (7-18); eGFR NON AFRICAN AMERICAN 85 mL/min (90-120)
[2017-10-18 06:20] LABS: GLUCOSE 180 mg/dL (74-106)
--- NOTE | 2017-10-18 07:15 | NUR ---
RESTING QUIETLY EYES CLOSED RESP UNLABORED NAD NOTED
--- NOTE | 2017-10-18 07:40 | NUR ---
ASSESSMENT COMPLETED. LEFT AC WITH NS AT 75. PEG TUBE WITH GLUCERNA 1.0 AT 75. CESPEDES CATH TO BED SIDE GRAVITY BAG. NPO. WILL MONITOR
[2017-10-18 08:43] VITALS: BP 140/62
[2017-10-18 13:05] VITALS: BP 114/59
[2017-10-18] MEDS ORDERED: LEVAQUIN750 MG PO (14:38)
--- NOTE | 2017-10-18 16:17 | NUR ---
Patient Name: FIATH MONTANO Admission Status: ER Accout number: [id number] Admission Date: 10-16-2017 : 1930 Admission Diagnosis:URINARY TRACT INFECTION, SITE NOT SPECIFIED Attending: LILLIAM HARRIS Current LOS: 2 Anticipated DC Date: 10-18-2017 Planned Disposition: Home with Home Health Primary Insurance: [employer] ADMINISTRATION PLANNED EXTERNAL PROVIDER: [facility] Discharge Planning Comments: * Is the patient Alert and Oriented? Yes 0 * How many steps to enter\exit or inside your home? 1 0 * PCP DR. OLIVER 0 * Pharmacy [facility] 0 * Preadmission Environment Home with Family 0 * ADLs Total Dependent 0 * Equipment Enteral Feeding and Supplies Hospital Bed [facility] 0 * Other Equipment [employer] - MEDICAL EQUIPMENT PROVIDER PREFERENCE 0 * List name and contact numbers for known caregivers / representatives who currently or will assist patient after discharge: DOROTEO MONTANO, SPOUSE, 0 * Community resources currently utilized Home Health 0 * Please name any agencies selected above. [facility], 0 * Additional services required to return to the preadmission environment? No 0 * Can the patient safely return to the preadmission environment? Yes 0 * Has this patient been hospitalized within the prior 30 days at any hospital? No 0 CM MET WITH PT IN ROOM TO DISCUSS DISCHARGE PLANNING AND NEEDS. PT GRUNTING AND YELLING OUT. PT'S SPOUSE REPORTS LIVING AT HOME DEPENDENTLY WITH HER AT HOME. PT HAS HOSPITAL BED WITH [employer] AND FEEDING SUPPLIES FROM [employer]. PT HAS [facility] AT HOME FOR NURSING AND PHYSICAL THERAPY. PT'S SPOUSE ASKED IF PT COULD STAY IN THE HOSPITAL UNTIL NEXT WEEK WHEN PT'S SON'S ARRIVE IN [place]OWN. CM EXPLAINED THAT PT IS STABLE FOR DISCHARGE HOME. PT'S SPOUSE ASKED ABOUT [facility]; CM EXPLAINED THAT SINCE PT IS STABLE FOR DISCHARGE, [facility] PT IS NO LONGER IN NEED OF ACUTE HOSPITAL CARE. PT'S SPOUSE WOULD LIKE PT TO STAY ONE MORE NIGHT TO HAVE THREE MIDNIGHTS TO GO TO REHAB IN [place]-TER[place]. CM EXPLAINED THAT PT IS MEDICALLY STABLE WITH DISCHARGE ORDER, ANOTHER NIGHT IN THE HOSPITAL IS NOT AN OPTION. SPOUSE ASKED IF SHE TOOK PT TO THE [facility] RO[facility], WOULD THEY ADMIT THE PT; CM EXPLAINED THAT [facility] IS HE NEEDED ACUTE STAY IN HOSPITAL, IF NOT, HE WOULD BE DISCHARGED FROM THE EMERGENCY ROOM BACK HOME. CM DISCUSSED AVAILABILITY OF HOME HEALTH, REHAB SERVICES AND MEDICAL EQUIPMENT. PT'S SPOUSE WOULD LIKE PT'S HOME HEALTH RESUMED, SPOUSE WANTS PT TO COME HOME VIA AMBULANCE. SPOUSE WANTS TO SEE THE DOCTOR. CM NOTIFIED MYKE ENRIQUEZ. IMPORTANT MESSAGE FROM MEDICARE PROVIDED AND EXPLAINED. Break Out Worker: Brian Templeton
--- NOTE | 2017-10-18 19:00 | NUR ---
DISCHARGED. AWAITING AMBULANCE FOR TRANSFER. TO AMBULANCE PER STRETCHER
[2017-11-13] MEDS ORDERED: GLIPIZIDE10 MG PO (14:24)
[2017-11-13] MEDS ORDERED: GLUCOTROL 5 MG T5 MG PO (14:25)
[2017-11-13] MEDS ORDERED: TIROSINT50 MCG PO (14:27)
[2017-11-22] MEDS ORDERED: COZAAR25 MG PO (11:59)
== END 2017-10-18 19:08 | disposition home or self-care (01) | DRG 640 ==
LOC: D.ER 15:00 → D.M2 19:05
PROVIDERS: Emergency Medicine; ADMIT Emergency Medicine
PROC: 0T9B70Z Drainage of Bladder with Drainage Device, Via Natural or Artificial Opening (ICD-10-PCS; principal; 2017-10-16)
DX: E87.1 Hypo-osmolality and hyponatremia (principal); R53.2 Functional quadriplegia; N39.0 Urinary tract infection, site not specified; E86.0 Dehydration; I10 Essential (primary) hypertension; I25.10 Atherosclerotic heart disease of native coronary artery without angina pectoris; Z95.5 Presence of coronary angioplasty implant and graft; Z86.73 Personal history of transient ischemic attack (TIA), and cerebral infarction without residual deficits

== ENCOUNTER 2018-03-19 15:31 | Emergency (ER) | payer MEDICARE ==
[2017-11-14 13:57] VITALS: BMI 20.8
[~2018-03-19 15:31] MED LIST changes: +GLIPIZIDE10 MG PO
== END 2018-03-19 22:14 | disposition home or self-care (01) ==
LOC: D.ER 15:31
DX: K94.29 Other complications of gastrostomy (principal); E11.9 Type 2 diabetes mellitus without complications

== ENCOUNTER 2018-03-31 17:54 | Emergency (ER) | payer MEDICARE ==
[2017-11-14 13:57] VITALS: Ht 182.9 cm; Wt 79.4 kg
[~2018-03-31] VITALS: Ht 182.9 cm; Wt 79.4 kg
[2018-03-31 18:35] LABS: BASOPHILS 0 % (0-2); EOSINOPHILS 0.6 % (0-7); HEMATOCRIT 33.3 % (42.0-54.0); HEMOGLOBIN 11.3 g/dL (13.5-17.5); IMMATURE GRANULOCYTES 0.8 % (0-5); LYMPHOCYTES 18.2 % (15-50); MCH 27.7 pg (26.0-34.0); MCHC 33.9 g/dL (31.0-37.0); MCV 81.6 fL (80.0-100.0); MEAN PLATELET VOLUME 9.8 fL (7.4-10.4); NEUTROPHILS 71.4 % (40-80); RBC 4.08 10x6/uL (4.20-6.10); RDW 17.6 % (11.5-14.5); WBC 9.9 10x3/uL (4.8-10.8)
[2018-03-31 18:46] LABS: PLATELET COUNT 105 10x3/uL (130-400)
[2018-03-31 19:56] LABS: CHLORIDE - SERUM 99 mmol/L (98-107); POTASSIUM - SERUM 4.3 mmol/L (3.5-5.1); SODIUM 135 mmol/L (136-145)
[2018-03-31 20:00] LABS: ALBUMIN 3.1 g/dL (3.4-5.0); ALKALINE PHOSPHATASE 132 U/L (46-116); ALT (SGPT) 35 U/L (10-68); BILIRUBIN - TOTAL 0.72 mg/dL (0.2-1.3); CALC OSMOLALITY 279 mosm/kg (275-300); CALCIUM 9.6 mg/dL (8.5-10.1); CARBON DIOXIDE 27.1 mmol/L (21.0-32.0); CREATININE - SERUM 0.9 mg/dL (0.6-1.3); GLUCOSE 154 mg/dL (74-106); PROTEIN - SERUM 7.1 g/dL (6.4-8.2); UREA NITROGEN 31 mg/dL (7-18); eGFR NON AFRICAN AMERICAN 85 mL/min (90-120)
[2018-03-31 23:24] VITALS: BP 142/74
== END 2018-03-31 23:22 | disposition home or self-care (01) ==
LOC: D.ER 17:54
PROVIDERS: Emergency Medicine
DX: R41.82 Altered mental status, unspecified (principal); F03.90 Unspecified dementia, unspecified severity, without behavioral disturbance, psychotic disturbance, mood disturbance, and anxiety; Z86.73 Personal history of transient ischemic attack (TIA), and cerebral infarction without residual deficits; I10 Essential (primary) hypertension; R41.0 Disorientation, unspecified; E11.9 Type 2 diabetes mellitus without complications

== ENCOUNTER 2018-10-23 04:42 | Inpatient (IN) | payer MEDICARE, MEDICAID ==
[~2018-10-23] VITALS: Ht 177.8 cm; Wt 74.1 kg
--- NOTE | ~2018-10-23 | CN ---
PATIENT NAME:FAITH DUBOIS MEDICAL RECORD: [id number] : 34 LOCATION:[facility] D.2113 ADMIT DATE: 10/23/18 ACCOUNT: [id number] CONSULTING PHYSICIAN: FLASH GREGG MD REFERRING PHYSICIAN: SAM CROWE MD DATE OF CONSULTATION: 10/25/2018 CONSULT REQUESTING PHYSICIAN: Sam Crowe MD REASON FOR CONSULTATION: Pneumonia and hemoptysis. HISTORY OF PRESENT ILLNESS: Mr. Dubois is an 88-year-old gentleman who was admitted on the 23 of October with aspiration pneumonia. One day before his admission, he aspirated, witnessed aspiration. He was coughing and shortness of breath. Today, he has some blood-tinged sputum. There is no significant hemoptysis or blood clots. The patient had dementia. The history was taken mainly by reviewing the patient's note and talking to the nursing staff. PAST MEDICAL HISTORY: 1. Dementia. 2. History of CVA. 3. Essential hypertension. 4. Arthritis. 5. Shortness of breath. 6. History of skin cancer. ALLERGIES: HE IS ALLERGIC TO CODEINE, GABAPENTIN, AND TERAZOSIN. MEDICATIONS: The [employer] was reviewed. PERSONAL AND SOCIAL HISTORY: The patient is a long term resident. He is nonsmoker and nondrinker. FAMILY HISTORY: Noncontributory. PHYSICAL EXAMINATION: GENERAL: Now, the patient is lying comfortably in bed. He is not in acute distress. VITAL SIGNS: The blood pressure is 146/58, pulse is 83, respiration is 18, temperature 97.5, and SpO2 is 97% on 2 liters nasal cannula. HEENT: Conjunctivae are pink. Sclerae are not icteric. NECK: Neck is supple. No JVD. CHEST: There are crackles at the left base. No wheezing. HEART: Rhythm regular. Normal sound. No murmur. ABDOMEN: Abdomen is soft. Bowel sounds present. No hepatosplenomegaly. RECTAL: Deferred. EXTREMITIES: No cyanosis. No clubbing. No pedal edema. CENTRAL NERVOUS SYSTEM: The patient is awake and alert, but he is very confused. DIAGNOSTIC DATA: Chest radiograph; there is infiltrate in left lower lobe. LABORATORY DATA: CBC; WBC on admission was 13.5, hemoglobin 12.2, hematocrit 37, and platelet count 102. Chemistry; sodium 136, potassium 4.5, BUN is 31, and creatinine 1.3. ABG; the pH is 7.43, pCO2 is 31, pO2 is 71. This was done CONSULT REPORT [id number] FAITH DUBOIS JIMOB on 3 liters nasal cannula. IMPRESSION: 1. Acute hypoxic respiratory failure. 2. Pneumonia, left lower, most likely aspiration pneumonia as the patient was witnessed. 3. Hemoptysis. 4. Leukocytosis, improving. 5. Dysphagia. 6. Dementia. RECOMMENDATION: 1. Continue Levaquin IV and cefepime IV. 2. Racemic epi. 3. I doubt any vasculitis. The hemoptysis is just blood-tinged sputum, most likely secondary to pneumonia-associated bronchitis. If the hemoptysis continues, the patient will need bronchoscopy. Dr. Crowe, thank you for involving me in the care of Ms. Dubois. TRANSINT:[id number] Voice Confirmation ID: [id number] DOCUMENT ID: [id number] FLASH GREGG MD CC: [id number] DICTATION DATE: 10/25/18 160 LUMP ROLLER: 10/25/182156 ADM IN [facility] [address] [place] [address]
[2018-10-23 05:43] LABS: BASOPHILS 0.1 % (0-2); EOSINOPHILS 0.1 % (0-7); HEMATOCRIT 37.1 % (42.0-54.0); HEMOGLOBIN 12.2 g/dL (13.5-17.5); IMMATURE GRANULOCYTES 0.4 % (0-5); LYMPHOCYTES 5.3 % (15-50); MCH 27.7 pg (26.0-34.0); MCHC 32.9 g/dL (31.0-37.0); MCV 84.1 fL (80.0-100.0); MEAN PLATELET VOLUME 10.2 fL (7.4-10.4); MONOCYTES 4.9 % (2-11); NEUTROPHILS 89.2 % (40-80); PLATELET COUNT 102 10x3/uL (130-400); RBC 4.41 10x6/uL (4.20-6.10); RDW 14.1 % (11.5-14.5); WBC 13.5 10x3/uL (4.8-10.8)
[2018-10-23 05:44] LABS: ALBUMIN 3.2 g/dL (3.4-5.0); ANION GAP 18.8 mmol/L (8-16); BILIRUBIN - TOTAL 0.95 mg/dL (0.2-1.3); CALCIUM 8.4 mg/dL (8.5-10.1); CARBON DIOXIDE 18.1 mmol/L (21.0-32.0); CREATININE - SERUM 1.3 mg/dL (0.6-1.3); POTASSIUM - SERUM 3.9 mmol/L (3.5-5.1); PROTEIN - SERUM 6.6 g/dL (6.4-8.2)
[2018-10-23 07:20] VITALS: BP 123/48; BMI 17.3
[2018-10-23 07:43] VITALS: BP 140/53
[2018-10-23 10:52] VITALS: Ht 177.8 cm; Wt 74.1 kg
[2018-10-23 11:44] VITALS: BP 99/53
[2018-10-23] MEDS ORDERED: ACETAMINOPHEN325 MG PO (13:17)
[2018-10-23] MEDS ORDERED: CARDURA1 MG PO (13:21)
[2018-10-23] MEDS ORDERED: MELATONIN 3 MG1 TAB PO (13:23)
[2018-10-23] MEDS ORDERED: MIRALAX17 GM PO (13:23)
[2018-10-23] MEDS ORDERED: IPRAT-ALBUT 0.5-3 ML UPD (13:25)
[2018-10-23 15:21] VITALS: BP 128/54
--- NOTE | 2018-10-23 18:04 | MORECARE ---
CASE MANAGEMENT DISCHARGE SUMMARY PATIENT: FAITH MONTANO JIMBO UNIT: [id number] ADM DATE: 10/23/18 AGE: 88 : 32 SEX: M ROOM/BED: D.2113 AUTHOR: FLORINA GUADALUPE PHYSICIAN: REFERRING PHYSICIAN: SAM CROWE MD DATE OF SERVICE: 10/23/18 Discharge Plan Patient Name: FAITH MONTANO Facility: [facility]:[place] : 1930 Planned Disposition: Half-Way Facility Anticipated Discharge Date: Discharge Date: Expected LOS: Initial Reviewer: [id number] Initial Review Date: 10/23/2018 Generated: 10/23/18 7:04 pm DCPIA - Discharge Planning Initial Assessment Updated by [id number]: Brian Templeton on 10/23/18 6:01 pm * Is the patient Alert and Oriented? Yes * How many steps to enter\exit or inside your home? NONE * [facility] * Preadmission Environment [facility] * Facility Name [facility] * ADLs Partial Dependent * Partial ADLs (Assistance needed) Ambulation Bathing Dressing Medication Management Toileting Transfers * Equipment Other Rolling Walker * Other Equipment ALL MEDICAL EQUIPMENT PROVIDED BY FACILITY * List name and contact numbers for known caregivers / representatives who currently or will assist patient after discharge: DOROTEO MONTANO, SPOUSE, * Verbal permission to speak to the caregivers and representatives has been obtained from the patient. Yes * Community resources currently utilized None * Please name any agencies selected above. NONE * Additional services required to return to the preadmission environment? No * Can the patient safely return to the preadmission environment? Yes * Has this patient been hospitalized within the prior 30 days at any hospital? No External Providers [facility] [facility] Next Contact Date: 10/24/2018 Service Request Date: Service Type: Resolution: Reviewer: Comments: Patient Name: FAITH MONTANO Page 30350 at 1804 All edits/amendments must be made on the electronic document DICTATION DATE: 10/23/181803 DIETARY SERVICES DIRECTOR: DM 10/23/18 1804 RPT#: [id number] DC DATE: STATUS: ADM IN [facility] [address] [place] [address] END OF REPORT
--- NOTE | 2018-10-23 18:11 | MORECARE ---
CASE MANAGEMENT DISCHARGE SUMMARY PATIENT: FAITH MONTANO JIMBO UNIT: [id number] ADM DATE: 10/23/18 AGE: 88 : 32 SEX: M ROOM/BED: D.3893 AUTHOR: ANAYELI,DOC PHYSICIAN: REFERRING PHYSICIAN: SAM CROWE MD DATE OF SERVICE: 10/23/18 Discharge Plan Patient Name: FAITH MONTANO Facility: [facility]:[place] : 1930 Planned Disposition: [facility]ci Facility Anticipated Discharge Date: Discharge Date: Expected LOS: Initial Reviewer: [email or web address] Initial Review Date: 10/23/2018 Generated: 10/23/18 7:11 pm Comments DCP- Discharge Planning Updated by [email or web address]: Brian Templeton on 10/23/18 5:[address] Patient Name: FAITH MONTANO Admission Status: ER Accout number: [id number] Admission Date: 10-23-2018 : 1930 Admission Diagnosis: Attending: SAM MORALES Current LOS: 1 Anticipated DC Date: Planned Disposition: Fci Facility Primary Insurance: [employer] CHOICE PPO MCR ADVANT PLANNED EXTERNAL PROVIDER: [facility] REHAB BED Discharge Planning Comments: CM MET WITH PT IN ROOM TO DISCUSS DISCHARGE PLANNING AND NEEDS. PT REPORTS HE HAS BEEN LIVING AT [facility] AND WILL RETURN THERE AT DISCHARGE. PT REPORTS HE RECEIVES THERAPY THERE ON Saturday AND SATURDAY. PT REPORTS IT IS OK TO DISCUSS HIS CARE AND TREATMENT WITH HIS , WHO MAKES DECISIONS FOR HIM. CM LATER MET WITH DOROTEO MONTANO IN ROOM WHO REPORTS PLAN FOR PT TO RETURN [facility] AND WILL BE RECEIVING REHAB AFTER HIS RETURN. CM FAXED UPDATE TO [facility] AT [phone]. FOR DISCHARGE, NURSE REPORT TO BE CALLED TO [facility] AT [phone]. FAX DISCHARGE INFORMATION TO [facility] AT [phone]. [facility] TO ARRANGE VAN TRANSPORT. Specialist Icu: Brian Templeton DCPIA - Discharge Planning Initial Assessment Updated by [id number]: Brian Templeton on 10/23/18 6:01 pm * Is the patient Alert and Oriented? Yes * How many steps to enter\exit or inside your home? NONE * [facility] * [facility] * Preadmission Environment Liaison Officer Assisted * Facility Name [facility] * ADLs Partial Dependent * Partial ADLs (Assistance needed) Ambulation Bathing Dressing Medication Management Toileting Transfers * Equipment Other Rolling Walker * Other Equipment ALL MEDICAL EQUIPMENT PROVIDED BY FACILITY * List name and contact numbers for known caregivers / representatives who currently or will assist patient after discharge: DOROTEO MONTANO, SPOUSE, * Verbal permission to speak to the caregivers and representatives has been obtained from the patient. Yes * Community resources currently utilized None * Please name any agencies selected above. NONE * Additional services required to return to the preadmission environment? No * Can the patient safely return to the preadmission environment? Yes * Has this patient been hospitalized within the prior 30 days at any hospital? No Last DP export: 10/23/18 5:04 Patient Name: FAITH MONTANO Page 11799 at 1811 All edits/amendments must be made on the electronic document DICTATION DATE: 10/23/181809 SUPERVISOR TRANSFERRING AND BOXING: SARAH 10/23/181809 RPT#: [id number] [place] DATE: STATUS: ADM IN [facility] [address] [place] [address] END OF REPORT
[2018-10-23 20:00] VITALS: BP 123/83
[2018-10-24] VITALS: BP 135/54
[2018-10-24 04:00] VITALS: BP 130/60
[2018-10-24 04:24] LABS: BASOPHILS 0.1 % (0-2); EOSINOPHILS 0.1 % (0-7); HEMATOCRIT 31.1 % (42.0-54.0); HEMOGLOBIN 10.1 g/dL (13.5-17.5); IMMATURE GRANULOCYTES 0.1 % (0-5); LYMPHOCYTES 13.8 % (15-50); MCH 27.4 pg (26.0-34.0); MCHC 32.5 g/dL (31.0-37.0); MCV 84.5 fL (80.0-100.0); MEAN PLATELET VOLUME 10.3 fL (7.4-10.4); MONOCYTES 7.3 % (2-11); NEUTROPHILS 78.6 % (40-80); RBC 3.68 10x6/uL (4.20-6.10); RDW 14.5 % (11.5-14.5); WBC 10.3 10x3/uL (4.8-10.8)
[2018-10-24 04:29] LABS: PLATELET COUNT 102 10x3/uL (130-400)
[2018-10-24 04:42] LABS: ALBUMIN 2.6 g/dL (3.4-5.0); BILIRUBIN - TOTAL 1.14 mg/dL (0.2-1.3); CALCIUM 8.9 mg/dL (8.5-10.1); CREATININE - SERUM 1.4 mg/dL (0.6-1.3)
[2018-10-24 04:43] LABS: ANION GAP 13.7 mmol/L (8-16); CARBON DIOXIDE 23.8 mmol/L (21.0-32.0); POTASSIUM - SERUM 4.5 mmol/L (3.5-5.1)
[2018-10-24 07:00] VITALS: BP 130/57
[2018-10-24 13:57] VITALS: BP 109/50
[2018-10-24 16:11] VITALS: BP 129/59
[2018-10-24 20:00] VITALS: BP 131/59
[2018-10-25 04:00] VITALS: BP 130/60
[2018-10-25 05:41] LABS: BASOPHILS 0 % (0-2); EOSINOPHILS 0.4 % (0-7); HEMATOCRIT 32.6 % (42.0-54.0); HEMOGLOBIN 10.5 g/dL (13.5-17.5); IMMATURE GRANULOCYTES 0.3 % (0-5); LYMPHOCYTES 17.9 % (15-50); MCH 27.6 pg (26.0-34.0); MCHC 32.2 g/dL (31.0-37.0); MCV 85.8 fL (80.0-100.0); MEAN PLATELET VOLUME 10.6 fL (7.4-10.4); MONOCYTES 5.7 % (2-11); NEUTROPHILS 75.7 % (40-80); RDW 14.8 % (11.5-14.5); WBC 10.4 10x3/uL (4.8-10.8)
[2018-10-25 05:44] LABS: PLATELET COUNT 105 10x3/uL (130-400)
[2018-10-25 05:52] LABS: ALBUMIN 2.6 g/dL (3.4-5.0); ANION GAP 14.2 mmol/L (8-16); BILIRUBIN - TOTAL 1.07 mg/dL (0.2-1.3); CALCIUM 9.4 mg/dL (8.5-10.1); CARBON DIOXIDE 21.2 mmol/L (21.0-32.0); CREATININE - SERUM 1.3 mg/dL (0.6-1.3); POTASSIUM - SERUM 4.4 mmol/L (3.5-5.1); PROTEIN - SERUM 6.3 g/dL (6.4-8.2)
[2018-10-25 10:19] VITALS: BP 146/58
[2018-10-25 17:31] VITALS: BP 130/55
[2018-10-26 07:00] LABS: BASOPHILS 0.1 % (0-2); HEMATOCRIT 31.3 % (42.0-54.0); HEMOGLOBIN 10.3 g/dL (13.5-17.5); IMMATURE GRANULOCYTES 0.6 % (0-5); LYMPHOCYTES 17.3 % (15-50); MCH 27.9 pg (26.0-34.0); MCHC 32.9 g/dL (31.0-37.0); MCV 84.8 fL (80.0-100.0); MONOCYTES 6.8 % (2-11); NEUTROPHILS 74.2 % (40-80); PLATELET COUNT 104 10x3/uL (130-400); RBC 3.69 10x6/uL (4.20-6.10); RDW 14.4 % (11.5-14.5); WBC 8.7 10x3/uL (4.8-10.8)
[2018-10-26 07:08] LABS: ALBUMIN 2.5 g/dL (3.4-5.0); ANION GAP 13.6 mmol/L (8-16); BILIRUBIN - TOTAL 0.92 mg/dL (0.2-1.3); CARBON DIOXIDE 23.8 mmol/L (21.0-32.0); CREATININE - SERUM 1.3 mg/dL (0.6-1.3); POTASSIUM - SERUM 4.4 mmol/L (3.5-5.1); PROTEIN - SERUM 6.2 g/dL (6.4-8.2)
[2018-10-26 08:17] VITALS: BP 141/60
[2018-10-26 12:19] VITALS: BP 149/72
[2018-10-26 16:31] VITALS: BP 136/58
--- NOTE | 2018-10-26 18:22 | MORECARE ---
CASE MANAGEMENT DISCHARGE SUMMARY PATIENT: FAITH MONTANO JIMBO UNIT: [id number] ADM DATE: 10/23/18 AGE: 88 : 32 SEX: M ROOM/BED: D.3793 AUTHOR: FLORINA GUADALUPE PHYSICIAN: REFERRING PHYSICIAN: SAM CROWE MD DATE OF SERVICE: 10/26/18 Discharge Plan Patient Name: FAITH MONTANO Facility: [facility]:[place] : 1930 Planned Disposition: Senior Living Facility Anticipated Discharge Date: Discharge Date: Expected LOS: Initial Reviewer: [id number] Initial Review Date: 10/23/2018 Generated: 10/26/18 7:22 pm Comments DCP- Discharge Planning Updated by [email or web address]: Karley Barksdale on 10/26/18 5:[address] LATE ENTRY 1600 DR GREGG STATED PATENT'S WANTED HIM TRANSFERED BACK TO [facility] TO NIGHT. TC TO [facility]. SPOKE WITH DIOGENES. THEN TRANSFERED TO ANOTHER PERSON. SPOKE WITH LAILA. SHE STATED THE PATIENT COULD NOT RETURN TONIGHT. HIS PAPERWORK WILL HAVE TO BE REVIEWED. 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 CM FAXED THE CLINICAL UPDATE THIS PM TO [phone]. WILL AWAIT REVIEW IN THE AM. CM SPOKE WITH PRIMARY NURSE TO ADVISE SPOUSE. DCP- Discharge Planning Updated by [id number]: Brian Templeton on 10/23/18 5:[address] Patient Name: FAITH MONTANO Admission Status: ER Accout number: [id number] Admission Date: 10-23-2018 : 1930 Admission Diagnosis: Attending: SAM MORALES Current LOS: 1 Anticipated DC Date: Planned Disposition: Senior Living Facility Primary Insurance: [employer] CHOICE PPO MCR ADVANT PLANNED EXTERNAL PROVIDER: [facility], MEDICARE REHAB BED Discharge Planning Comments: CM MET WITH PT IN ROOM TO DISCUSS DISCHARGE PLANNING AND NEEDS. PT REPORTS HE HAS BEEN LIVING AT [facility] AND WILL RETURN THERE AT DISCHARGE. PT REPORTS HE RECEIVES THERAPY THERE ON Saturday AND SATURDAY. PT REPORTS IT IS OK TO DISCUSS HIS CARE AND TREATMENT WITH HIS , WHO MAKES DECISIONS FOR HIM. CM LATER MET WITH DOROTEO MONTANO IN ROOM WHO REPORTS PLAN FOR PT TO RETURN TO SNF CARE AT [facility] AND WILL BE RECEIVING REHAB AFTER HIS RETURN. CM FAXED UPDATE TO [facility] AT [phone]. FOR DISCHARGE, NURSE REPORT TO BE CALLED TO [facility] AT [phone]. FAX DISCHARGE INFORMATION TO [facility] AT [phone]. [facility] TO ARRANGE VAN TRANSPORT. Gambreler Helper: Brian Templeton DCPIA - Discharge Planning Initial Assessment Updated by [email or web address]: Brian Templeton on 10/23/18 6:01 pm * Is the patient Alert and Oriented? Yes * How many steps to enter\exit or inside your home? NONE * PCP [facility] * Pharmacy [facility] * Preadmission Environment [facility] * Facility Name [facility] * ADLs Partial Dependent * Partial ADLs (Assistance needed) Ambulation Bathing Dressing Medication Management Toileting Transfers * Equipment Other Rolling Walker * Other Equipment ALL MEDICAL EQUIPMENT PROVIDED BY FACILITY * List name and contact numbers for known caregivers / representatives who currently or will assist patient after discharge: DOROTEO MONTANO, SPOUSE, * Verbal permission to speak to the caregivers and representatives has been obtained from the patient. Yes * Community resources currently utilized None * Please name any agencies selected above. NONE * Additional services required to return to the preadmission environment? No * Can the patient safely return to the preadmission environment? Yes * Has this patient been hospitalized within the prior 30 days at any hospital? No Last DP export: 10/23/18 5:11 Patient Name: FAITH MONTANO Page 95231 at 1822 All edits/amendments must be made on the electronic document DICTATION DATE: 10/26/181821 AIRCRAFT ENGINE MECHANIC: SARAH 10/26/181821 RPT#: [id number] [place] DATE: STATUS: ADM IN [facility] [address] [place] [address] END OF REPORT
[2018-10-26 19:55] VITALS: BP 132/63
[2018-10-26 23:50] VITALS: BP 133/60
[2018-10-27 03:45] VITALS: BP 149/71
[2018-10-27 06:00] LABS: BASOPHILS 0.1 % (0-2); HEMATOCRIT 31.3 % (42.0-54.0); HEMOGLOBIN 10.2 g/dL (13.5-17.5); IMMATURE GRANULOCYTES 1.2 % (0-5); LYMPHOCYTES 16.5 % (15-50); MCHC 32.6 g/dL (31.0-37.0); MCV 82.8 fL (80.0-100.0); MEAN PLATELET VOLUME 10.4 fL (7.4-10.4); MONOCYTES 8.6 % (2-11); NEUTROPHILS 71.6 % (40-80); PLATELET COUNT 99 10x3/uL (130-400); RBC 3.78 10x6/uL (4.20-6.10); RDW 14.2 % (11.5-14.5); WBC 6.8 10x3/uL (4.8-10.8)
[2018-10-27 06:11] LABS: ALBUMIN 2.4 g/dL (3.4-5.0); ANION GAP 14.8 mmol/L (8-16); BILIRUBIN - TOTAL 0.76 mg/dL (0.2-1.3); CALCIUM 8.4 mg/dL (8.5-10.1); CARBON DIOXIDE 22.8 mmol/L (21.0-32.0); CREATININE - SERUM 1.1 mg/dL (0.6-1.3); PROTEIN - SERUM 6.2 g/dL (6.4-8.2)
[2018-10-27 06:17] LABS: POTASSIUM - SERUM 3.6 mmol/L (3.5-5.1)
[2018-10-27 07:16] LABS: PLATELET ESTIMATE DECREASED
[2018-10-27 08:13] VITALS: BP 152/70
--- NOTE | 2018-10-27 09:59 | MORECARE ---
CASE MANAGEMENT DISCHARGE SUMMARY PATIENT: FAITH MONTANO JIMBO UNIT: [id number] ADM DATE: 10/23/18 AGE: 88 : 32 SEX: M ROOM/BED: D.8773 AUTHOR: FLORINA GUADALUPE PHYSICIAN: REFERRING PHYSICIAN: SAM CROWE MD DATE OF SERVICE: 10/27/18 Discharge Plan Patient Name: FAITH MONTANO Facility: [facility]:[place] : 1930 Planned Disposition: Fdc Facility Anticipated Discharge Date: 10/27/18 Discharge Date: Expected LOS: 4 Initial Reviewer: [id number] Initial Review Date: 10/23/2018 Generated: 10/27/18 10:58 am Comments DCP- Discharge Planning Updated by [email or web address]: Karley Barksdale on 10/26/18 5:[address] LATE ENTRY [address] DR GREGG STATED PATENT'S WANTED HIM TRANSFERED BACK TO [facility] TO NIGHT. TC TO [facility]. SPOKE WITH DIOGENES. THEN TRANSFERED TO ANOTHER PERSON. SPOKE WITH LAILA. SHE STATED THE PATIENT COULD NOT RETURN TONIGHT. HIS PAPERWORK WILL HAVE TO BE REVIEWED. PATIENT IS ALSO [employer] SUBSCRIBER. CM FAXED THE CLINICAL UPDATE THIS PM TO [phone]. WILL AWAIT REVIEW IN THE AM. CM SPOKE WITH PRIMARY NURSE TO ADVISE SPOUSE. DCP- Discharge Planning Updated by [email or web address]: Brian Templeton on 10/23/18 5:[address] Patient Name: FAITH MONTANO Admission Status: ER Accout number: [id number] Admission Date: 10-23-2018 : 1930 Admission Diagnosis: Attending: SAM MORALES Current LOS: 1 Anticipated DC Date: Planned Disposition: Fdc Facility Primary Insurance: [employer] CHOICE PPO MCR ADVANT PLANNED EXTERNAL PROVIDER: [facility], MEDICARE REHAB BED Discharge Planning Comments: CM MET WITH PT IN ROOM TO DISCUSS DISCHARGE PLANNING AND NEEDS. PT REPORTS HE HAS BEEN LIVING AT [facility] AND WILL RETURN THERE AT DISCHARGE. PT REPORTS HE RECEIVES THERAPY THERE ON Saturday AND SATURDAY. PT REPORTS IT IS OK TO DISCUSS HIS CARE AND TREATMENT WITH HIS , WHO MAKES DECISIONS FOR HIM. CM LATER MET WITH DOROTEO MONTANO IN ROOM WHO REPORTS PLAN FOR PT TO RETURN TO PRISON CARE AT [facility] AND WILL BE RECEIVING REHAB AFTER HIS RETURN. CM FAXED UPDATE TO [facility] AT [phone]. FOR DISCHARGE, NURSE REPORT TO BE CALLED TO [facility] AT [phone]. FAX DISCHARGE INFORMATION TO [facility] AT [phone]. [facility] TO ARRANGE VAN TRANSPORT. Property Field Inspector: Brian Templeton DCPIA - Discharge Planning Initial Assessment Updated by [email or web address]: Brian Templeotn on 10/23/18 6:01 pm * Is the patient Alert and Oriented? Yes * How many steps to enter\exit or inside your home? NONE * PCP [facility] * Pharmacy [facility] * [facility] * Facility Name [facility] * ADLs Partial Dependent * Partial ADLs (Assistance needed) Ambulation Bathing Dressing Medication Management Toileting Transfers * Equipment Other Rolling Walker * Other Equipment ALL MEDICAL EQUIPMENT PROVIDED BY FACILITY * List name and contact numbers for known caregivers / representatives who currently or will assist patient after discharge: DOROTEO MONTANO, SPOUSE, * Verbal permission to speak to the caregivers and representatives has been obtained from the patient. Yes * Community resources currently utilized None * Please name any agencies selected above. NONE * Additional services required to return to the preadmission environment? No * Can the patient safely return to the preadmission environment? Yes * Has this patient been hospitalized within the prior 30 days at any hospital? No Coverage Notice Reviewer: [id number] - Brian Templeton Notice Issued Date-Time: 10/27/2018 9:50 Notice Type: IM Discharge Notice Notice Delivered To: Patient Relationship to Patient: Audiologist Name: Delivery Method: HAND - Hand Delivered Concha Days: Prior Verbal Notification: Recipient Understood Notice: Yes Recipient Signature: Yes Med Rec Note Co-signed by Attending: Coverage Notice Comment: Last DP export: 10/26/18 5:22 Patient Name: FAITH MONTANO Page 82002 at 0959 All edits/amendments must be made on the electronic document DICTATION DATE: 10/27/18 0958 CONFECTIONERY DROPS MACHINE OPERATOR: SARAH 10/27/1858 RPT#: [id number] DC DATE: STATUS: ADM IN [facility] [address] [place] [address] END OF REPORT
--- NOTE | 2018-10-27 10:05 | MORECARE ---
CASE MANAGEMENT DISCHARGE SUMMARY PATIENT: FAITH MONTANO JIMBO UNIT: [id number] ADM DATE: 10/23/18 AGE: 88 : 32 SEX: M ROOM/BED: D.2113 AUTHOR: ANAYELI,DOC PHYSICIAN: REFERRING PHYSICIAN: SAM CROWE MD DATE OF SERVICE: 10/27/18 Discharge Plan Patient Name: FAITH MONTANO Facility: [facility]:[place] : 1930 Planned Disposition: Prison Facility Anticipated Discharge Date: 10/27/18 Discharge Date: Expected LOS: 4 Initial Reviewer: [id number] Initial Review Date: 10/23/2018 Generated: 10/27/18 11:05 am Comments DCP- Discharge Planning Updated by [id number]: Brian Templeton on 10/27/18 9:[address] Patient Name: FAITH MONTANO Encounter No: [id number] : 1930 Primary Insurance: [employer] CHOICE PPO MCR ADVANT Anticipated DC Date: 10-27-2018 Planned Disposition: Prison Facility External Planned Provider: [facility] DCP follow-up note: CM SPOKE TO PT AND SPOUSE IN ROOM, BOTH WANT TO DISCHARGE BACK TO [facility] SOON POSSIBLE. IMPORTANT MESSAGE FROM MEDICARE PROVIDED AND EXPLAINED. CM CALLED AND SPOKE TO HARMONY AT [facility], , WHO INFORMED CM THEY CAN ACCEPT PT TODAY INTO SKILLED BED. CM NOTIFIED PT, SPOUSE AND JOSE L WATERS. FOR DISCHARGE, NURSE REPORT TO BE CALLED TO [facility] AT [phone]. FAX DISCHARGE INFORMATION TO [facility] AT [phone]. [facility] TO ARRANGE VAN TRANSPORT. Brian Templeton, CASE MANAGEMENT DCP- Discharge Planning Updated by [id number]: Karley Barksdale on 10/26/18 5:[address] LATE ENTRY [address] GREGG STATED PATENT'S WANTED HIM TRANSFERED BACK TO [facility] TO NIGHT. TC TO [facility]. SPOKE WITH DIOGENES. THEN TRANSFERED TO ANOTHER PERSON. SPOKE WITH LAILA. SHE STATED THE PATIENT COULD NOT RETURN TONIGHT. HIS PAPERWORK WILL HAVE TO BE REVIEWED. 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 CM FAXED THE CLINICAL UPDATE THIS PM TO [phone]. WILL AWAIT REVIEW IN THE AM. CM SPOKE WITH PRIMARY NURSE TO ADVISE SPOUSE. DCP- Discharge Planning Updated by [id number]: Brian Templeton on 10/23/18 5:[address] Patient Name: FAITH MONTANO Admission Status: ER Accout number: [id number] Admission Date: 10-23-2018 : 1930 Admission Diagnosis: Attending: SAM MORALES Current LOS: 1 Anticipated DC Date: Planned Disposition: Prison Facility Primary Insurance: [employer] PPO MCR ADVANT PLANNED EXTERNAL PROVIDER: [facility] Discharge Planning Comments: CM MET WITH PT IN ROOM TO DISCUSS DISCHARGE PLANNING AND NEEDS. PT REPORTS HE HAS BEEN LIVING AT [facility] AND WILL RETURN THERE AT DISCHARGE. PT REPORTS HE RECEIVES THERAPY THERE ON Saturday AND SATURDAY. PT REPORTS IT IS OK TO DISCUSS HIS CARE AND TREATMENT WITH HIS , WHO MAKES DECISIONS FOR HIM. AIMEE LATER MET WITH DOROTEO MONTANO IN ROOM WHO REPORTS PLAN FOR PT TO RETURN TO [facility] AT [facility] AND WILL BE RECEIVING REHAB AFTER HIS RETURN. CM FAXED UPDATE TO HARMONY OF [facility] AT [phone]. FOR DISCHARGE, NURSE REPORT TO BE CALLED TO [facility] AT [phone]. FAX DISCHARGE INFORMATION TO [facility] AT [phone]. [facility] TO ARRANGE VAN TRANSPORT. Algebra Teacher: Brian Templeton DCPIA - Discharge Planning Initial Assessment Updated by [id number]: Brian Templeton on 10/23/18 6:01 pm * Is the patient Alert and Oriented? Yes * How many steps to enter\exit or inside your home? NONE * PCP [facility] * Pharmacy [facility] * Preadmission Environment [employer] [facility] * Facility Name [facility] * ADLs Partial Dependent * Partial ADLs (Assistance needed) Ambulation Bathing Dressing Medication Management Toileting Transfers * Equipment Other Rolling Walker * Other Equipment ALL MEDICAL EQUIPMENT PROVIDED BY FACILITY * List name and contact numbers for known caregivers / representatives who currently or will assist patient after discharge: DOROTEO MONTANO, SPOUSE, * Verbal permission to speak to the caregivers and representatives has been obtained from the patient. Yes * Community resources currently utilized None * Please name any agencies selected above. NONE * Additional services required to return to the preadmission environment? No * Can the patient safely return to the preadmission environment? Yes * Has this patient been hospitalized within the prior 30 days at any hospital? No Coverage Notice Reviewer: [id number] Ellie Templeton Notice Issued Date-Time: 10/27/2018 9:50 Notice Type: IM Discharge Notice Notice Delivered To: Patient Relationship to Patient: Emergency Nurse Name: Delivery Method: HAND - Hand Delivered Concha Days: Prior Verbal Notification: Recipient Understood Notice: Yes Recipient Signature: Yes Med Rec Note Co-signed by Attending: Coverage Notice Comment: Last DP export: 10/27/18 8:58 Patient Name: FAITH MONTANO Page 21341 at 1005 All edits/amendments must be made on the electronic document DICTATION DATE: 10/27/18 1005 EMERGENCY MANAGEMENT DIRECTOR: SARAH 10/27/18 1005 RPT#: [id number] DC DATE: STATUS: ADM IN [facility] [address] [place] [address] END OF REPORT
[2018-10-27] MEDS ORDERED: LEVAQUIN750 MG PO (10:36)
[2018-10-27] MEDS ORDERED: MUCINEX600 MG PO (10:37)
[2018-10-27] MEDS ORDERED: TESSALON PERLE100 MG PO (10:37)
[2018-10-27] MEDS ORDERED: FLOMAX0.4 MG PO (10:38)
[2018-10-27 11:23] VITALS: BP 138/65
--- NOTE | 2018-10-27 12:06 | MORECARE ---
CASE MANAGEMENT DISCHARGE SUMMARY PATIENT: FAITH MONTANO JIMBO UNIT: [id number] ADM DATE: 10/23/18 AGE: 88 : 32 SEX: M ROOM/BED: D.2113 AUTHOR: ANAYELI,DOC PHYSICIAN: REFERRING PHYSICIAN: SAM CROWE MD DATE OF SERVICE: 10/27/18 Discharge Plan Patient Name: FAITH MONTANO Facility: [facility]:[place] : 1930 Planned Disposition: [facility] Facility Anticipated Discharge Date: 10/27/18 Discharge Date: Expected LOS: 4 Initial Reviewer: [id number] Initial Review Date: 10/23/2018 Generated: 10/27/18 1:06 pm Comments DCP- Discharge Planning Updated by [email or web address]: Brian Templeton on 10/27/18 11:[address] Patient Name: FAITH MONTANO Encounter No: [id number] : 1930 Primary Insurance: [employer] CHOICE PPO MCR ADVANT Anticipated DC Date: 10-27-2018 Planned Disposition: [facility] Facility External Planned Provider: [facility] DCP follow-up note: CM SPOKE TO PT AND SPOUSE IN ROOM, BOTH WANT TO DISCHARGE BACK TO [facility] SOON POSSIBLE. IMPORTANT MESSAGE FROM MEDICARE PROVIDED AND EXPLAINED. CM CALLED AND SPOKE TO HARMONY AT [facility], , WHO INFORMED CM THEY CAN ACCEPT PT TODAY INTO SKILLED BED. CM NOTIFIED PT, SPOUSE AND JOSE L WATERS. FOR DISCHARGE, NURSE REPORT TO BE CALLED TO [facility] AT [phone]. FAX DISCHARGE INFORMATION TO [facility] AT [phone]. [facility] TO ARRANGE VAN TRANSPORT. Brian Templeton, CASE MANAGEMENT Appended by Brian Templeton on 10/27/2018 12:05 TELEPHONE SUPERVISOR: CM RECEIVED DISCHARGE, FAXED DISCHARGE INFORMATION TO [facility] AT [phone]. CM NOTIFIED HARMONY VIA TELEPHONE MESSAGE AT [phone]. NURSE REPORT TO BE CALLED TO [facility] AT [phone]. [facility] TO ARRANGE VAN TRANSPORT. Brian Templeton CASE MANAGEMENT DCP- Discharge Planning Updated by [id number]: Karley Barksdale on 10/26/18 5:[address] LATE ENTRY [address] GREGG STATED PATENT'S WANTED HIM TRANSFERED BACK TO [facility] TO NIGHT. TC TO [facility]. SPOKE WITH DIOGENES. THEN TRANSFERED TO ANOTHER PERSON. SPOKE WITH LAILA. SHE STATED THE PATIENT COULD NOT RETURN TONIGHT. HIS PAPERWORK WILL HAVE TO BE REVIEWED. 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 CM FAXED THE CLINICAL UPDATE THIS PM TO [phone]. WILL AWAIT REVIEW IN THE AM. CM SPOKE WITH PRIMARY NURSE TO ADVISE SPOUSE. DCP- Discharge Planning Updated by [email or web address]: Brian Templeton on 10/23/18 5:[address] Patient Name: FAITH MONTANO Admission Status: ER Accout number: [id number] Admission Date: 10-23-2018 : 1930 Admission Diagnosis: Attending: SAM MORALES Current LOS: 1 Anticipated DC Date: Planned Disposition: [facility] Facility Primary Insurance: [employer] CHOICE PPO MCR ADVANT PLANNED EXTERNAL PROVIDER: [facility] Discharge Planning Comments: CM MET WITH PT IN ROOM TO DISCUSS DISCHARGE PLANNING AND NEEDS. PT REPORTS HE HAS BEEN LIVING AT [facility] AND WILL RETURN THERE AT DISCHARGE. PT REPORTS HE RECEIVES THERAPY THERE ON Saturday AND SATURDAY. PT REPORTS IT IS OK TO DISCUSS HIS CARE AND TREATMENT WITH HIS , WHO MAKES DECISIONS FOR HIM. CM LATER MET WITH DOROTEO MONTANO IN ROOM WHO REPORTS PLAN FOR PT TO RETURN TO [facility] AT [facility] AND WILL BE RECEIVING REHAB AFTER HIS RETURN. CM FAXED UPDATE TO HARMONY OF [facility] AT [phone]. FOR DISCHARGE, NURSE REPORT TO BE CALLED TO [facility] AT [phone]. FAX DISCHARGE INFORMATION TO [facility] AT [phone]. [facility] TO ARRANGE VAN TRANSPORT. Specialist Physicians: Brian Templeton DCPIA - Discharge Planning Initial Assessment Updated by [id number]: Brian Templeton on 10/23/18 6:01 pm * Is the patient Alert and Oriented? Yes * How many steps to enter\exit or inside your home? NONE * PCP [facility] * Pharmacy [facility] * Preadmission Environment Prost[facility] * Facility Name [facility] * ADLs Partial Dependent * Partial ADLs (Assistance needed) Ambulation Bathing Dressing Medication Management Toileting Transfers * Equipment Other Rolling Walker * Other Equipment ALL MEDICAL EQUIPMENT PROVIDED BY FACILITY * List name and contact numbers for known caregivers / representatives who currently or will assist patient after discharge: DOROTEO MONTANO, SPOUSE, * Verbal permission to speak to the caregivers and representatives has been obtained from the patient. Yes * Community resources currently utilized None * Please name any agencies selected above. NONE * Additional services required to return to the preadmission environment? No * Can the patient safely return to the preadmission environment? Yes * Has this patient been hospitalized within the prior 30 days at any hospital? No Coverage Notice Reviewer: [id number] Ellie Templeton Notice Issued Date-Time: 10/27/2018 9:50 Notice Type: IM Discharge Notice Notice Delivered To: Patient Relationship to Patient: Radiation Monitor Name: Delivery Method: HAND - Hand Delivered Concha Days: Prior Verbal Notification: Recipient Understood Notice: Yes Recipient Signature: Yes Med Rec Note Co-signed by Attending: Coverage Notice Comment: Last DP export: 10/27/18 9:05 Patient Name: FAITH MONTANO Page 34365 at 1206 All edits/amendments must be made on the electronic document DICTATION DATE: 10/27/18 1206 FLATWORK FINISHER HAND: SARAH 10/27/18 1206 RPT#: [id number] DC DATE: STATUS: ADM IN [facility] [address] [place] [address] END OF REPORT
--- NOTE | 2018-10-27 12:15 | MORECARE ---
CASE MANAGEMENT DISCHARGE SUMMARY PATIENT: FAITH MONTANO JIMBO UNIT: [id number] ADM DATE: 10/23/18 AGE: 88 : 32 SEX: M ROOM/BED: D.2113 AUTHOR: ANAYELI,DOC PHYSICIAN: REFERRING PHYSICIAN: SAM CROWE MD DATE OF SERVICE: 10/27/18 Discharge Plan Patient Name: FAITH MONTANO Facility: [facility]:[place] : 1930 Planned Disposition: [facility] Facility Anticipated Discharge Date: 10/27/18 Discharge Date: Expected LOS: 4 Initial Reviewer: [id number] Initial Review Date: 10/23/2018 Generated: 10/27/18 1:15 pm Comments DCP- Discharge Planning Updated by [email or web address]: Brian Templeton on 10/27/18 11:[address] Patient Name: FAITH MONTANO Encounter No: [id number] : 1930 Primary Insurance: [employer] CHOICE PPO MCR ADVANT Anticipated DC Date: 10-27-2018 Planned Disposition: [facility] Facility External Planned Provider: [facility] DCP follow-up note: CM SPOKE TO PT AND SPOUSE IN ROOM, BOTH WANT TO DISCHARGE BACK TO [facility] SOON POSSIBLE. IMPORTANT MESSAGE FROM MEDICARE PROVIDED AND EXPLAINED. CM CALLED AND SPOKE TO HARMONY AT [facility], , WHO INFORMED CM THEY CAN ACCEPT PT TODAY INTO SKILLED BED. CM NOTIFIED PT, SPOUSE AND JOSE L WATERS. FOR DISCHARGE, NURSE REPORT TO BE CALLED TO [facility] AT [phone]. FAX DISCHARGE INFORMATION TO [facility] AT [phone]. [facility] TO ARRANGE VAN TRANSPORT. Brian Templeton, CASE MANAGEMENT Appended by Brian Templeton on 10/27/2018 12:05 ASSEMBLER TRUCK TRAILER: CM RECEIVED DISCHARGE, FAXED DISCHARGE INFORMATION TO [facility] AT [phone]. CM NOTIFIED HARMONY VIA TELEPHONE MESSAGE AT [phone]. NURSE REPORT TO BE CALLED TO [facility] AT [phone]. [facility] TO ARRANGE VAN TRANSPORT. Brian Templeton CASE MANAGEMENT DCP- Discharge Planning Updated by [id number]: Karley Barksdale on 10/26/18 5:[address] LATE ENTRY [address] GREGG STATED PATENT'S WANTED HIM TRANSFERED BACK TO [facility] TO NIGHT. TC TO [facility]. SPOKE WITH DIOGENES. THEN TRANSFERED TO ANOTHER PERSON. SPOKE WITH LAILA. SHE STATED THE PATIENT COULD NOT RETURN TONIGHT. HIS PAPERWORK WILL HAVE TO BE REVIEWED. 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 CM FAXED THE CLINICAL UPDATE THIS PM TO [phone]. WILL AWAIT REVIEW IN THE AM. CM SPOKE WITH PRIMARY NURSE TO ADVISE SPOUSE. DCP- Discharge Planning Updated by [email or web address]: Brian Templeton on 10/23/18 5:[address] Patient Name: FAITH MONTANO Admission Status: ER Accout number: [id number] Admission Date: 10-23-2018 : 1930 Admission Diagnosis: Attending: SAM MORALES Current LOS: 1 Anticipated DC Date: Planned Disposition: [facility] Facility Primary Insurance: [employer] CHOICE PPO MCR ADVANT PLANNED EXTERNAL PROVIDER: [facility] Discharge Planning Comments: CM MET WITH PT IN ROOM TO DISCUSS DISCHARGE PLANNING AND NEEDS. PT REPORTS HE HAS BEEN LIVING AT [facility] AND WILL RETURN THERE AT DISCHARGE. PT REPORTS HE RECEIVES THERAPY THERE ON Saturday AND SATURDAY. PT REPORTS IT IS OK TO DISCUSS HIS CARE AND TREATMENT WITH HIS , WHO MAKES DECISIONS FOR HIM. CM LATER MET WITH DOROTEO MONTANO IN ROOM WHO REPORTS PLAN FOR PT TO RETURN TO [facility] AT [facility] AND WILL BE RECEIVING REHAB AFTER HIS RETURN. CM FAXED UPDATE TO HARMONY OF [facility] AT [phone]. FOR DISCHARGE, NURSE REPORT TO BE CALLED TO [facility] AT [phone]. FAX DISCHARGE INFORMATION TO [facility] AT [phone]. [facility] TO ARRANGE VAN TRANSPORT. Sewing Machinist: Brian Templeton DCPIA - Discharge Planning Initial Assessment Updated by [id number]: Brian Templeton on 10/23/18 6:01 pm * Is the patient Alert and Oriented? Yes * How many steps to enter\exit or inside your home? NONE * PCP [facility] * Pharmacy [facility] * Preadmission Environment Carbon Paste Mixer [facility] * Facility Name [facility] * ADLs Partial Dependent * Partial ADLs (Assistance needed) Ambulation Bathing Dressing Medication Management Toileting Transfers * Equipment Other Rolling Walker * Other Equipment ALL MEDICAL EQUIPMENT PROVIDED BY FACILITY * List name and contact numbers for known caregivers / representatives who currently or will assist patient after discharge: DOROTEO MONTANO, SPOUSE, * Verbal permission to speak to the caregivers and representatives has been obtained from the patient. Yes * Community resources currently utilized None * Please name any agencies selected above. NONE * Additional services required to return to the preadmission environment? No * Can the patient safely return to the preadmission environment? Yes * Has this patient been hospitalized within the prior 30 days at any hospital? No Coverage Notice Reviewer: [id number] Ellie Templeton Notice Issued Date-Time: 10/27/2018 9:50 Notice Type: IM Discharge Notice Notice Delivered To: Patient Relationship to Patient: Dermatopathologist Name: Delivery Method: HAND - Hand Delivered Concha Days: Prior Verbal Notification: Recipient Understood Notice: Yes Recipient Signature: Yes Med Rec Note Co-signed by Attending: Coverage Notice Comment: Last DP export: 10/27/18 9:05 Patient Name: FAITH MONTANO Page 05103 at 1215 All edits/amendments must be made on the electronic document DICTATION DATE: 10/27/181213 PALEOBOTANIST: SARAH 10/27/18 121 RPT#: [id number] DC DATE: STATUS: ADM IN [facility] [address] [place] [address] END OF REPORT
== END 2018-10-27 13:27 | DRG 177 ==
LOC: D.ER 04:42 → D.M2 05:58
PROVIDERS: Emergency Medicine; ADMIT Family Medicine
DX: J69.0 Pneumonitis due to inhalation of food and vomit (principal); J96.01 Acute respiratory failure with hypoxia; J90 Pleural effusion, not elsewhere classified; R04.2 Hemoptysis; E11.65 Type 2 diabetes mellitus with hyperglycemia; F03.90 Unspecified dementia, unspecified severity, without behavioral disturbance, psychotic disturbance, mood disturbance, and anxiety; Z86.73 Personal history of transient ischemic attack (TIA), and cerebral infarction without residual deficits

== ENCOUNTER → 2019-04-27 12:09 | Outpatient (CLI) | payer MEDICARE, MEDICAID ==
[2018-10-23 10:52] VITALS: BMI 23.6
[~2019-04-27 12:09] MED LIST changes: +CARDURA1 MG PO; +IPRAT-ALBUT 0.5-3 ML UPD; +MELATONIN 3 MG1 TAB PO; +MIRALAX17 GM PO; +TESSALON PERLE100 MG PO
== END | disposition home or self-care (01) ==
LOC: D.RAD 12:09
PROVIDERS: ATTEND Internal Medicine Geriatric Medicine
DX: R13.10 Dysphagia, unspecified (principal)